=== PATIENT | male | born 1950 | race African-American/Black ===

== ENCOUNTER 2016-12-11 16:54 | Emergency (ER) | payer OTHER ==
[~2016-12-11] VITALS: Ht 175.3 cm; Wt 53.0 kg
[~2016-12-11 16:54] MED LIST: KALETRA200 PO
[2016-12-11 16:56] VITALS: BP 144/87; PULSE 108; RESP 20; TEMP 98; O2SAT 94
--- NOTE | 2016-12-11 18:16 | PD ---
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 He denies any medical complaints. Denies any fever, chills, nausea, vomiting, chest pain, shortness of breath, cough or cold symptoms. States he is otherwise doing well. No other complaints. PFSH Past Medical History Hx Anticoagulant Therapy: No Arthritis: Yes Autoimmune Disease: Yes Blood Disorders: No Heart Rhythm Problems: No Cancer: Yes (SKIN, THROAT) Cardiovascular Problems: No High Cholesterol: Yes Chemotherapy: Yes (JANUARY 2016) Chest Pain: No Congestive Heart Failure: No Cerebrovascular Accident: No Diminished Hearing: No Endocrine: No Genitourinary: No Hiatal Hernia: Yes Hypertension: Yes Immune Disorder: Yes (HIV POSITIVE) Musculoskeletal: No Neurologic: No Psychiatric: No Reproductive: No Respiratory: Yes (Trach) Immunizations Current: Yes Myocardial Infarction: No Radiation Therapy: Yes Past Surgical History Abdominal Surgery: Yes (HERNIA REPAIR, FEED TUBE) AICD: No Joint Replacement: No Pacemaker: No Other Surgery: Yes (TRACHEOSTOMY) Social History Alcohol Use: No Tobacco Use: No Substance Use: No Allergies-Medications (Allergen,Severity, Reaction): Coded Allergies: Morphine (Verified Allergy, Severe, Seizures, 12/11/16) WHEN TAKEN IN COMBINATION WITH OXYCODONE Oxycodone (Verified Allergy, Severe, Seizures, 12/11/16) WHEN TAKEN IN COMBINATION WITH MORPHINE Reported Meds & Prescriptions Reported Meds & Active Scripts Active Reported Kaletra (Lopinavir/Ritonavir) 200-50 Mg Tab 1 Tab PO BID Review of Systems Except as stated in HPI: all other systems reviewed are Neg Physical Exam Narrative GENERAL: Well-nourished and well-developed pleasant male patient in no acute distress who is nontoxic appearing. SKIN: Warm and dry. HEAD: Normocephalic and atraumatic. EYES: No injection, drainage, or hyphema noted. PERRLA. EOMI. ENT: No nasal drainage noted. Oropharynx is clear. NECK: Supple and the trachea is midline. Tracheostomy noted. CARDIOVASCULAR: Regular rate and rhythm. RESPIRATORY: Breath sounds are equal bilaterally with no accessory muscle use, wheezing, rhonchi, or crackles. NEUROLOGICAL: Awake, alert, and oriented. Normal speech and gait. Cranial nerves are grossly intact. Data Data Last Documented VS Vital Signs Date Time Temp Pulse Resp B/P Pulse Ox O2 Delivery O2 Flow Rate FiO2 12/11/16 16:56 98.0 108 20 144/87 94 Room Air Orders Tube, Trach Cuffless Fen:#4 Ea (12/11/16 17:48) MDM Medical Decision Making Medical Screen Exam Complete: Yes Emergency Medical Condition: Yes Differential Diagnosis Tracheostomy care versus medical clearance versus dressing change Narrative Course 66-year-old male presents to the emergency department requesting to have the cap replaced on his tracheostomy. Patient is afebrile, vital signs are stable. He has no medical complaints. The respiratory therapist replaced the piece of his tracheostomy that he needed replaced. He is stable for discharge. Diagnosis Primary Impression: Tracheostomy care Referrals: Primary Care Physician Patient Instructions: General Instructions, Tracheostomy Care (ED) Additional Instructions: Follow-up with your Primary Care Physician. Return to the ED for any acute worsening of symptoms. Disposition: 01 DISCHARGE HOME Condition: Stable Raina Castellano Dec 11, 2016 18:16
== END 2016-12-11 18:31 | disposition home or self-care (01) ==
LOC: NEPB 16:54
DX: Z43.0 Encounter for attention to tracheostomy (principal); I10 Essential (primary) hypertension; E78.00 Pure hypercholesterolemia, unspecified; Z21 Asymptomatic human immunodeficiency virus [HIV] infection status; Z87.39 Personal history of other diseases of the musculoskeletal system and connective tissue; Z86.2 Personal history of diseases of the blood and blood-forming organs and certain disorders involving the immune mechanism; Z85.828 Personal history of other malignant neoplasm of skin; Z85.818 Personal history of malignant neoplasm of other sites of lip, oral cavity, and pharynx; Z87.09 Personal history of other diseases of the respiratory system
CPT/HCPCS: 99282

== ENCOUNTER 2017-01-16 17:54 | Emergency (ER) | payer MEDICARE, MEDICAID ==
[2017-01-16 18:34] VITALS: BP 148/88; PULSE 77; RESP 26; TEMP 98.8; O2SAT 95
[2017-01-16 18:43] VITALS: O2SAT 95
[2017-01-16] MEDS ORDERED: RESP: ALBUTEROL 2.5 MG/IPRATROPIUM 0.5 MG NEB (SCH) INH ONE (18:45)
[2017-01-16] MEDS ORDERED: SODIUM CHLORIDE 0.9% FLUSH 10 ML FLUSH IVF PRN (18:45)
[2017-01-16 18:46] VITALS: BP 148/88; PULSE 90; RESP 26; O2SAT 95
--- NOTE | 2017-01-16 18:51 | PD ---
HPI Chief Complaint: Respiratory Distress Time Seen by Provider: 18:21 Travel History International Travel<30 days: No Contact w/Intl Traveler<30days: No Traveled to known affect area: No History of Present Illness HPI This 66-year-old male with a history of HIV, throat cancer, status post trach and PEG, who presents to the emergency department complaining of cough and trouble breathing. States it caused him for the past 2 days or so. He's been fighting a cold. States she's been short of breath since today. He has a speaking valve on his trach, which is a 4.0 trach. He states been having trouble getting she will come up to the house to the care of him. He is actually considering hospice. Is not really had any fevers or chills. He otherwise has been doing well. Patient was given several treatments and 125 mg Solu-Medrol with EMS. History Past Medical History Narrative Medical Throat cancer Status post trach PEG HIV positive Hypertension Hiatal hernia Social History Alcohol Use: No Tobacco Use: No Allergies-Medications (Allergen,Severity, Reaction): Coded Allergies: Morphine (Verified Allergy, Severe, Seizures, 12/11/16) WHEN TAKEN IN COMBINATION WITH OXYCODONE Oxycodone (Verified Allergy, Severe, Seizures, 12/11/16) WHEN TAKEN IN COMBINATION WITH MORPHINE Reported Meds & Prescriptions Reported Meds & Active Scripts Active Reported Kaletra (Lopinavir/Ritonavir) 200-50 Mg Tab 1 Tab PO BID Review of Systems Except as stated in HPI: all other systems reviewed are Neg Physical Exam Narrative GENERAL: 66-year-old man, thin built, no acute distress. SKIN: Focused skin assessment warm/dry. HEAD: Atraumatic. Normocephalic. EYES: Pupils equal and round. No scleral icterus. No injection or drainage. ENT: No nasal bleeding or discharge. Mucous membranes pink and moist. NECK: 4.0 trach with speaking valve in the midline. There is some crusting drainage around it. CARDIOVASCULAR: Regular rate and rhythm. No murmur appreciated. RESPIRATORY: Coarse inspiratory next door wheezing throughout the posterior lung hatch. Also transmitted upper airway sounds as well. GASTROINTESTINAL: Abdomen soft, non-tender, nondistended. Hepatic and splenic margins not palpable. MUSCULOSKELETAL: No obvious deformities. Decreased muscle bulk. No edema. NEUROLOGICAL: Awake and alert. No obvious cranial nerve deficits. Motor grossly within normal limits. Normal speech. Data Data Last Documented VS Vital Signs Date Time Temp Pulse Resp B/P Pulse Ox O2 Delivery O2 Flow Rate FiO2 01/16/17 18:43 95 Room Air 01/16/17 18:34 98.8 77 26 148/88 Orders Complete Blood Count With Diff (01/16/17 18:41) Comprehensive Metabolic Panel (01/16/17 18:41) B-Type Natriuretic Peptide (01/16/17 18:41) Troponin I (01/16/17 18:41) Iv Access Insert/Monitor (01/16/17 18:41) Electrocardiogram (01/16/17 18:41) Ecg Monitoring (01/16/17 18:41) Oximetry (01/16/17 18:41) Oxygen Administration (01/16/17 18:41) Sodium Chloride 0.9% Flush (Ns Flush) (01/16/17 18:45) Albuterol-Ipratropium Neb (Duoneb Neb) (01/16/17 18:45) [facility] Medical Decision Making Medical Screen Exam Complete: Yes Emergency Medical Condition: Yes Differential Diagnosis Pneumonia, reactive airway disease, tracheal secretions, other Narrative Course Medical decision-making 66 old male with a trach, URI symptoms for the past day or 2, with marked wheezing. No history of lung disease. Suspect bronchitis or pneumonia. We'll have respiratory suction as trach, x-ray, labs, breathing treatment, reassess. Eric Arriola MD Jan 16, 2017 18:51
[2017-01-16 19:53] LABS: AUTOMATED NEUTROPHIL # 3.4 TH/MM3 (1.8-7.7); BASOPHIL % 0.5 % (0.0-2.0); EOSINOPHIL # 0.5 TH/MM3 (0-0.4); HEMATOCRIT 48.1 % (39.0-51.0); LYMPH % 22.8 % (9.0-44.0); LYMPHOCYTE # 1.2 TH/MM3 (1.0-4.8); MEAN CELL VOLUME 80.1 FL (80.0-100.0); MEAN CORPUSCULAR HEMOGLOBIN 25.8 PG (27.0-34.0); MEAN CORPUSCULAR HGB CONC 32.2 % (32.0-36.0); MONO % 5.4 % (0.0-8.0); NEUT % 62.3 % (16.0-70.0); PLATELET COUNT 90 TH/MM3 (150-450); RED BLOOD COUNT 6.01 MIL/MM3 (4.50-5.90); RED CELL DISTRIBUTION WIDTH 14.5 % (11.6-17.2); WHITE BLOOD COUNT 5.4 TH/MM3 (4.0-11.0)
[2017-01-16 20:01] LABS: HEMO FLAGS AUTO DIFF
[2017-01-16 20:03] LABS: ALKALINE PHOSPHATASE 67 U/L (45-117); ALT (GPT) 22 U/L (12-78); ANION GAP 7 MEQ/L (5-15); AST (GOT) 31 U/L (15-37); BICARBONATE 29.9 MEQ/L (21.0-32.0); BLOOD UREA NITROGEN 22 MG/DL (7-18); CHLORIDE 101 MEQ/L (98-107); GLOMERULAR FILTRATION RATE 116 ML/MIN (>89); POTASSIUM 4.8 MEQ/L (3.5-5.1); SODIUM (NA) 138 MEQ/L (136-145); TOTAL BILIRUBIN ADULT 0.3 MG/DL (0.2-1.0)
--- NOTE | 2017-01-16 20:14 | RADRPT ---
EXAM DATE/TIME: 01/16/2017 19:17 [facility] COMPARISON: CHEST SINGLE AP, July 26, 2016, 16:52. INDICATIONS : Shortness of breath. MEDICAL HISTORY : Hypertension. Arthritis. SURGICAL HISTORY : None. ENCOUNTER: Initial ACUITY: 1 day PAIN SCORE: Non-responsive. LOCATION: Bilateral chest FINDINGS: The tracheostomy tube is stable in position compared to the previous examination. The left-sided Inf use-a-port has its tip in the right atrium. There is no pneumothorax. The heart and mediastinal str uctures are stable. The pulmonary vascular pattern is normal. The lungs are clear. Degenerative ch anges are noted throughout the thoracic spine. CONCLUSION: 1. No acute cardiopulmonary disease. 2. Stable chest. Macho Collazo MD on January 16, 2017 at 20:11 Board Certified Radiologist. This report was verified electronically.
[2017-01-16 20:27] LABS: PLATELET ESTIMATE SMEAR LOW (NORMAL); PLATELET MORPHOLOGY ENLARGED (NORMAL)
[2017-01-16 20:28] LABS: SCAN/DIFF AUTO DIFF CONFIRMED
[2017-01-16 21:13] VITALS: BP 152/104; PULSE 102; RESP 18; O2SAT 96
[2017-01-16] MEDS ORDERED: RESP: ALBUTEROL 2.5 MG/3 ML NEB (SCH) NEB ONE (22:00)
[2017-01-16] MEDS ORDERED: LEVOFLOXACIN 750 MG PREMIX INJ 150 ML IV ONE (22:00)
--- NOTE | 2017-01-16 22:22 | EKG ---
Date Performed: 01/16/2017 Time Performed: 19:14:27 PTAGE: 66 years EKG: Sinus rhythm POSSIBLE LEFT ATRIAL ENLARGEMENT BORDERLINE LEFT AXIS DEVIATION ST ELEVATION, PROBABLY EARLY REPOLAR IZATION BORDERLINE ECG PREVIOUS TRACING : 07/26/2016 15.59 Compared to prior tracing no significant change DOCTOR: Ismael Betancourt Interpretating Date/Time 01/16/2017 22:20:01
--- NOTE | 2017-01-16 22:55 | RADRPT ---
EXAM DATE/TIME: 01/16/2017 22:40 [facility] COMPARISON: CHEST SINGLE AP, January 16, 2017, 19:17. INDICATIONS : Post trach replacement. MEDICAL HISTORY : Hypertension. Arthritis. SURGICAL HISTORY : Trach. [id number] ENCOUNTER: Subsequent ACUITY: 1 day PAIN SCORE: Non-responsive. LOCATION: Bilateral chest FINDINGS: The tracheostomy tube is in good position approximately 6 cm above the remington. A left internal jugul ar [id number] has its tip in the right atrium. There is no pneumothorax. The heart is stable. T he pulmonary vascularity is stable. The lungs are clear. Degenerative changes and scoliosis of the thoracic spine are noted. CONCLUSION: 1. No acute cardiopulmonary disease. 2. Tracheostomy tube in good position well above the remington. 3. Degenerative changes and scoliosis of the thoracic spine. Macho Collazo MD on January 16, 2017 at 22:46 Board Certified Radiologist. This report was verified electronically.
[2017-01-17] MEDS ORDERED: LEVA750T PO (00:12)
--- NOTE | 2017-01-17 00:12 | PD ---
Physical Exam Narrative Patient signed out to me by Dr. nunez to follow-up labs and reassess. Please see his documentation for complete history and physical. Briefly, patient is a 66-year-old male with history of HIV, with tracheostomy tube. He comes in complaining of cough and shortness of breath. Patient received DuoNeb nebs and Solu-Medrol. Data Data Last Documented VS Vital Signs Date Time Temp Pulse Resp B/P Pulse Ox O2 Delivery O2 Flow Rate FiO2 01/16/17 21:13 102 18 152/104 96 Trach Collar 01/16/17 18:34 98.8 Orders Complete Blood Count With Diff (01/16/17 18:41) Comprehensive Metabolic Panel (01/16/17 18:41) B-Type Natriuretic Peptide (01/16/17 18:41) Troponin I (01/16/17 18:41) Iv Access Insert/Monitor (01/16/17 18:41) Electrocardiogram (01/16/17 18:41) Ecg Monitoring (01/16/17 18:41) Oximetry (01/16/17 18:41) Oxygen Administration (01/16/17 18:41) Sodium Chloride 0.9% Flush (Ns Flush) (01/16/17 18:45) Albuterol-Ipratropium Neb (Duoneb Neb) (01/16/17 18:45) Chest, Single Ap (01/16/17 ) Albuterol Neb (Albuterol Neb) (01/16/17 22:00) Levofloxacin 750 Mg Premix Inj (Levaquin (01/16/17 22:00) Tube, Tracheal #4 Ea (01/16/17 21:52) Resp Tracheostomy Tube Change (01/16/17 ) Chest, Single Ap (01/16/17 ) Labs Laboratory Tests Test 01/16/17 19:00 White Blood Count 5.4 TH/MM3 Red Blood Count 6.01 MIL/MM3 Hemoglobin 15.5 GM/DL Hematocrit 48.1 % Mean Corpuscular Volume 80.1 FL Mean Corpuscular Hemoglobin 25.8 PG Mean Corpuscular Hemoglobin 32.2 % Concent Red Cell Distribution Width 14.5 % Platelet Count 90 TH/MM3 Mean Platelet Volume 12.1 FL Neutrophils (%) (Auto) 62.3 % Lymphocytes (%) (Auto) 22.8 % Monocytes (%) (Auto) 5.4 % Eosinophils (%) (Auto) 9.0 % Basophils (%) (Auto) 0.5 % Neutrophils # (Auto) 3.4 TH/MM3 Lymphocytes # (Auto) 1.2 TH/MM3 Monocytes # (Auto) 0.3 TH/MM3 Eosinophils # (Auto) 0.5 TH/MM3 Basophils # (Auto) 0.0 TH/MM3 CBC Comment AUTO DIFF Differential Comment AUTO DIFF CONFIRMED Platelet Estimate LOW Platelet Morphology Comment ENLARGED Red Cell Morphology Comment NORMAL Sodium Level 138 MEQ/L Potassium Level 4.8 MEQ/L Chloride Level 101 MEQ/L Carbon Dioxide Level 29.9 MEQ/L Anion Gap 7 MEQ/L Blood Urea Nitrogen 22 MG/DL Creatinine 0.81 MG/DL Estimat Glomerular Filtration 116 ML/MIN Rate Random Glucose 95 MG/DL Calcium Level 9.6 MG/DL Total Bilirubin 0.3 MG/DL Aspartate Amino Transf 31 U/L (AST/SGOT) Alanine Aminotransferase 22 U/L (ALT/SGPT) Alkaline Phosphatase 67 U/L Troponin I 0.02 NG/ML B-Type Natriuretic Peptide 4 PG/ML Total Protein 8.4 GM/DL Albumin 3.7 GM/DL MDM Supervised Visit with [place]: No Narrative Course Chest x-ray shows no evidence of pneumonia. Tracheostomy tube was replaced as the mucus was too thick to suction through. Patient reports feeling much better after this. Given a dose of Levaquin. We'll discharge with prescription for Levaquin. Patient advised to use albuterol as needed at home. Advised to return to the ED as needed for any worsening symptoms. Diagnosis Primary Impression: Bronchitis Additional Impression: Tracheostomy care Patient Instructions: Acute Bronchitis (ED), General Instructions Additional Instruction: Follow up with your doctor. Return to the ED as needed for any worsening symptoms. Take all of your antibiotics. Scripts Levofloxacin (Levaquin)750 Mg [id number] Mg PO DAILY 7 Days Ref 0 Prov:Anay Darden MD 01/17/17 Disposition: 01 DISCHARGE HOME Condition: Stable Anay Darden MD Jan 17, 2017 00:12
== END 2017-01-17 00:58 | disposition home or self-care (01) ==
LOC: NEDAMB 17:54 → NEPC 01-17 00:58
DX: C14.0 Malignant neoplasm of pharynx, unspecified (principal); B20 Human immunodeficiency virus [HIV] disease; J20.9 Acute bronchitis, unspecified; Z93.0 Tracheostomy status
CPT/HCPCS: 71010; 80053; 83880; 84484; 85025; 93005; 94640; 94664; 96374; 99284; A7521; J1956; J7613

== ENCOUNTER 2017-02-22 11:48 | Emergency (ER) | payer MEDICAID, MEDICARE, OTHER ==
[~2017-02-22] VITALS: Ht 175.3 cm; Wt 52.3 kg
[~2017-02-22 11:48] MED LIST changes: -KALETRA200 PO; +LEVA750T PO
[2017-02-22 11:51] VITALS: BP 141/96; PULSE 98; RESP 16; TEMP 98; O2SAT 96
--- NOTE | 2017-02-22 13:09 | PD ---
HPI Chief Complaint: Respiratory Symptoms Time Seen by Provider: 12:08 Travel History International Travel<30 days: No Contact w/Intl Traveler<30days: No Traveled to known affect area: No History of Present Illness HPI 66-year-old gentleman states that he takes his cap at night off and now he is having issues getting it in. He states he also wants his tracheostomy collar switched. He states he wants to be suctioned. He denies other complaints. History is obtained by patient writing a note that is limited PFSH Past Medical History Narrative Medical By records Hx Anticoagulant Therapy: No Arthritis: Yes Autoimmune Disease: Yes Blood Disorders: No Heart Rhythm Problems: No Cancer: Yes Cardiovascular Problems: No High Cholesterol: Yes Chemotherapy: Yes (JANUARY 2016) Chest Pain: No Congestive Heart Failure: No Cerebrovascular Accident: No Diminished Hearing: No Endocrine: No Genitourinary: No Hiatal Hernia: Yes Hypertension: Yes Immune Disorder: Yes (HIV/AIDS) Musculoskeletal: No Neurologic: No Psychiatric: No Reproductive: No Respiratory: Yes (Tghroat CA with trach > 1 yr) Immunizations Current: Yes Myocardial Infarction: No Radiation Therapy: Yes Tetanus Vaccination: > 5 Years Influenza Vaccination: No Past Surgical History Narrative Surgical By records Abdominal Surgery: Yes AICD: No Joint Replacement: No Pacemaker: No Other Surgery: Yes (Trach placed ) Social History Alcohol Use: No Tobacco Use: No Substance Use: No Allergies-Medications (Allergen,Severity, Reaction): Coded Allergies: Morphine (Verified Allergy, Severe, Seizures, 02/22/17) WHEN TAKEN IN COMBINATION WITH OXYCODONE Oxycodone (Verified Allergy, Severe, Seizures, 02/22/17) WHEN TAKEN IN COMBINATION WITH MORPHINE Reported Meds & Prescriptions Reported Meds & Active Scripts Active Levaquin (Levofloxacin) 750 Mg Tab 750 Mg PO DAILY 7 Days Review of Systems ROS Limitations: Poor Historian Physical Exam Exam Limitations: Uncooperative Narrative GENERAL: Well-nourished, well-developed patient. SKIN: Warm and dry. HEAD: atraumatic. EYES: No injection or drainage. ENT: Tracheostomy site with inner cannula off, this was replaced by respiratory therapist and he was suctioned, collar was also changed NECK: Supple, trachea midline. CARDIOVASCULAR: Regular rate and rhythm RESPIRATORY: No increased effort. No accessory muscle use. NEUROLOGICAL: Awake and alert. Moves all extremities. Normal speech. Data Data Last Documented VS Vital Signs Date Time Temp Pulse Resp B/P Pulse Ox O2 Delivery O2 Flow Rate FiO2 02/22/17 11:55 16 97 Room Air 02/22/17 11:51 98.0 98 141/96 Orders ^ Suction (02/22/17 12:26) [facility] Medical Decision Making Medical Screen Exam Complete: Yes Emergency Medical Condition: Yes Medical Record Reviewed: Yes (patient here for similar visits) Differential Diagnosis Tracheostomy care, suctioning, URI Narrative Course Patient with stable vitals, RT assisted with tracheostomy care, talked with case management to help get home health and patient refused this. Given return instructions, all questions answered. Patient knows that follow up is incumbent on them and to return to the emergency room immediately if new or worsening symptoms develop. Diagnosis Primary Impression: Tracheostomy care Patient Instructions: General Instructions Additional Instructions: Follow with primary to set up home health, return as needed with any emergent need Med/Other Pt SpecificInfo: No Change to Meds Disposition: 01 DISCHARGE HOME Condition: Stable Kassy Rojo MD February 22, 2017 13:09
== END 2017-02-22 14:03 | disposition home or self-care (01) ==
LOC: NEPC 11:48
DX: Z43.0 Encounter for attention to tracheostomy (principal); E78.00 Pure hypercholesterolemia, unspecified; I10 Essential (primary) hypertension
CPT/HCPCS: 99283

== ENCOUNTER 2017-03-26 11:25 | Emergency (ER) | payer OTHER ==
[2017-03-26 11:40] VITALS: BP 112/84; PULSE 83; RESP 16; TEMP 98.5; O2SAT 96
--- NOTE | 2017-03-26 11:42 | PD ---
HPI Chief Complaint: CARE FOR TRACH Time Seen by Provider: 11:38 Travel History International Travel<30 days: No Contact w/Intl Traveler<30days: No History of Present Illness HPI WHILE AT HOME PATIENT COUGHED STRONGLY AND HIS INNER CANULA FROM TRACH CAME OUT , HE'S HERE FOR REPLACEMENT PFSH Past Medical History Hx Anticoagulant Therapy: No Arthritis: Yes Autoimmune Disease: Yes Blood Disorders: No Heart Rhythm Problems: No Cancer: Yes Cardiovascular Problems: No High Cholesterol: Yes Chemotherapy: Yes (JANUARY 2016) Chest Pain: No Congestive Heart Failure: No Cerebrovascular Accident: No Diminished Hearing: No Endocrine: No Genitourinary: No Hiatal Hernia: Yes Hypertension: Yes Immune Disorder: Yes (HIV/AIDS) Musculoskeletal: No Neurologic: No Psychiatric: No Reproductive: No Respiratory: Yes (Tghroat CA with trach > 1 yr) Immunizations Current: Yes Myocardial Infarction: No Radiation Therapy: Yes Past Surgical History Abdominal Surgery: Yes AICD: No Joint Replacement: No Pacemaker: No Other Surgery: Yes (Trach placed ) Social History Alcohol Use: No Tobacco Use: No Substance Use: No Allergies-Medications (Allergen,Severity, Reaction): Coded Allergies: Morphine (Verified Allergy, Severe, Seizures, 03/26/17) WHEN TAKEN IN COMBINATION WITH OXYCODONE Oxycodone (Verified Allergy, Severe, Seizures, 03/26/17) WHEN TAKEN IN COMBINATION WITH MORPHINE Reported Meds & Prescriptions Reported Meds & Active Scripts Active Review of Systems Except as stated in HPI: all other systems reviewed are Neg Physical Exam Narrative GENERAL: SKIN: Warm and dry. HEAD: Atraumatic. Normocephalic. EYES: Pupils equal and round. No scleral icterus. No injection or drainage. ENT: No nasal bleeding or discharge. Mucous membranes pink and moist. NECK: Trachea midline. No JVD. TRACH COLLAR IN PLACE, MISSING INNER CANNULA WHICH HE BROUGHT WITH HIMSELF. NO RESP DISTRESS CARDIOVASCULAR: Regular rate and rhythm. RESPIRATORY: No accessory muscle use. Clear to auscultation. Breath sounds equal bilaterally. GASTROINTESTINAL: Abdomen soft, non-tender, nondistended. Hepatic and splenic margins not palpable. MUSCULOSKELETAL: Extremities without clubbing, cyanosis, or edema. No obvious deformities. NEUROLOGICAL: Awake and alert. No obvious cranial nerve deficits. Motor grossly within normal limits. Five out of 5 muscle strength in the arms and legs. Normal speech. PSYCHIATRIC: Appropriate mood and affect; insight and judgment normal. Data Data Last Documented VS Vital Signs Date Time Temp Pulse Resp B/P Pulse Ox O2 Delivery O2 Flow Rate FiO2 03/26/17 11:40 98.5 83 16 112/84 96 MDM Medical Decision Making Medical Screen Exam Complete: Yes Emergency Medical Condition: Yes Medical Record Reviewed: Yes Differential Diagnosis NO RESP DISTRESS PRESENT, NO STRIDOR, WILL REPLACE INNER CANNULA Narrative Course SEE ABOVE Diagnosis Primary Impression: Tracheostomy care Patient Instructions: General Instructions, Tracheostomy Care (ED) Disposition: 01 DISCHARGE HOME Condition: Stable Monty Pathak MD Mar 26, 2017 11:42
[2017-03-26 13:54] VITALS: BP 110/80
== END 2017-03-26 14:00 | disposition home or self-care (01) ==
LOC: NEPC 11:25
DX: Z43.0 Encounter for attention to tracheostomy (principal); I10 Essential (primary) hypertension
CPT/HCPCS: 99284

== ENCOUNTER 2017-05-01 10:57 | Emergency (ER) | payer OTHER ==
[~2017-05-01] VITALS: Ht 175.3 cm; Wt 53.0 kg
[2017-05-01 11:04] VITALS: BP 142/89; PULSE 86; RESP 18; TEMP 98.6; O2SAT 99
[2017-05-01 11:20] VITALS: BP 142/89; PULSE 86; RESP 18; TEMP 98.6; O2SAT 98
--- NOTE | 2017-05-01 12:22 | PD ---
HPI Chief Complaint: Respiratory Symptoms Time Seen by Provider: 11:14 Travel History International Travel<30 days: No Contact w/Intl Traveler<30days: No Traveled to known affect area: No History of Present Illness HPI This patient has long-standing indwelling trach. The patient coughed and his cannula came out. He presents to get it replaced. He had the same thing happened last month. He is breathing fine and denies any shortness of breath or fever or chest pain. Severity is mild PFSH Past Medical History Hx Anticoagulant Therapy: No Arthritis: Yes Autoimmune Disease: Yes Blood Disorders: No Heart Rhythm Problems: No Cancer: Yes Cardiovascular Problems: No High Cholesterol: Yes Chemotherapy: Yes Chest Pain: No Congestive Heart Failure: No Cerebrovascular Accident: No Diminished Hearing: No Endocrine: No Gastrointestinal Disorders: No Genitourinary: No Hiatal Hernia: Yes Hypertension: Yes Immune Disorder: Yes (HIV/AIDS) Musculoskeletal: No Neurologic: No Psychiatric: No Reproductive: No Respiratory: Yes (Throat CA with trach > 1 yr) Immunizations Current: Yes Myocardial Infarction: No Radiation Therapy: Yes Tetanus Vaccination: > 5 Years Influenza Vaccination: Yes ?: Not Past Surgical History Abdominal Surgery: Yes AICD: No Joint Replacement: No Neurologic Surgery: No Pacemaker: No Other Surgery: Yes (Trach placed ) Social History Alcohol Use: No Tobacco Use: No Substance Use: No Allergies-Medications (Allergen,Severity, Reaction): Coded Allergies: Morphine (Verified Allergy, Severe, Seizures, 03/26/17) WHEN TAKEN IN COMBINATION WITH OXYCODONE Oxycodone (Verified Allergy, Severe, Seizures, 03/26/17) WHEN TAKEN IN COMBINATION WITH MORPHINE Reported Meds & Prescriptions Reported Meds & Active Scripts Active Review of Systems General / Constitutional: No: Fever HENT: No: Headaches Cardiovascular: No: Chest Pain or Discomfort Respiratory: Positive: Cough Physical Exam Narrative RESPIRATORY: Respiratory effort unlabored, no retractions or use of accessory muscles. Breath sounds are clear and symmetric. NECK: Symmetrical appearance, midline trachea. No mass or crepitus. Thyroid without enlargement, tenderness, or mass. CARDIOVASCULAR: Regular rate and rhythm without murmur. Extremities showed no edema or varicosities. Data Data Last Documented VS Vital Signs Date Time Temp Pulse Resp B/P Pulse Ox O2 Delivery O2 Flow Rate FiO2 05/01/17 11:20 98.6 86 18 142/89 98 Trach Collar MDM Medical Decision Making Medical Screen Exam Complete: Yes Emergency Medical Condition: Yes Medical Record Reviewed: Yes Differential Diagnosis Dislodged tracheostomy, bronchitis, COPD Narrative Course I have reviewed the patient's electronic medical record. Patient was here March 2017 for the exact same problem We cleaned and replaced his tracheostomy without complication Patient feels fine and demands to instantly go home He does not want anything else done I did advise him he should discuss with his physician why his tracheostomy keeps popping out when he coughs. Diagnosis Primary Impression: Tracheostomy care Additional Instructions: The patient was advised to follow up with their physician and return if they worsen. Med/Other Pt SpecificInfo: Other Disposition: 01 DISCHARGE HOME Condition: Stable Simon Colón MD May 01, 2017 12:22
== END 2017-05-01 14:05 | disposition home or self-care (01) ==
LOC: NEPE 10:57
DX: Z43.0 Encounter for attention to tracheostomy (principal)
CPT/HCPCS: 99283

== ENCOUNTER 2017-09-04 20:53 | Emergency (ER) | payer OTHER ==
[2017-09-04 20:56] VITALS: BP 157/87; PULSE 102; RESP 18; TEMP 98.2; O2SAT 94
--- NOTE | 2017-09-04 22:42 | PD ---
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 Patient is unable to speak audibly without his. He is wondering if we will be able to replace this. Patient has no other symptoms to report at this time. History Past Medical Histgory Hx Cancer: Yes Hx Chemotherapy: Yes Hx Radiation Therapy: Yes Social History Alcohol Use: No Tobacco Use: No Allergies-Medications (Allergen,Severity, Reaction): Coded Allergies: morphine (Unverified Allergy, Severe, Seizures, 06/05/17) WHEN TAKEN IN COMBINATION WITH OXYCODONE oxycodone (Unverified Allergy, Severe, Seizures, 06/05/17) WHEN TAKEN IN COMBINATION WITH MORPHINE Reported Meds & Prescriptions Reported Meds & Active Scripts Active Review of Systems Except as stated in HPI: all other systems reviewed are Neg Physical Exam Narrative GENERAL: Well-nourished male patient, appears without distress SKIN: Warm and dry. HEAD: Atraumatic. Normocephalic. EYES: Pupils equal and round. No scleral icterus. No injection or drainage. ENT: No nasal bleeding or discharge. Mucous membranes pink and moist. NECK: Trachea midline. #[address] No erythema or edema. CARDIOVASCULAR: Elevated rate RESPIRATORY: No accessory muscle use. GASTROINTESTINAL: Abdomen nondistended. MUSCULOSKELETAL: Extremities without clubbing, cyanosis, or edema. No obvious deformities. NEUROLOGICAL: Awake and alert. No obvious cranial nerve deficits. Normal speech. Data Data Last Documented VS Vital Signs Date Time Temp Pulse Resp B/P (MAP) Pulse Ox O2 Delivery O2 Flow Rate FiO2 09/04/17 20:56 98.2 102 18 157/87 (110) 94 Room Air MDM Medical Screen Exam Complete: Yes Emergency Medical Condition: No Differential Diagnosis quality facilitator malfunction Narrative Course 66 year-old male presents emergency department requesting a For his trach. Patient states that he lost a today and cannot find it. He has a #4 trach and I am unable to locate a #4 Here in the hospital. I have gone to the supply department and they have #6 in #8. We have attempted a #6, but this does not fit. Patient states that he can contact his primary care provider tomorrow. At this time there are no urgent or emergent needs medical intervention identified. A medical screening exam was performed: At the time of evaluation the presenting medical condition was determined not to be of an emergent nature. The patient was given the option of receiving additional care, but declined. Patient was given options for additional community resources from which to obtain care. The Patient Has Been advised to seek medical attention for their presenting complaint. The patient has been advised to return to the ER at any time if an emergent condition develops. Primary Impression: Encounter for medical screening examination Condition: Stable Kat Harry Sep 04, 2017 22:42
== END 2017-09-04 22:30 | disposition left against medical advice (07) ==
LOC: NED 22:25
DX: Z00.00 Encounter for general adult medical examination without abnormal findings (principal); Z93.0 Tracheostomy status; Z85.21 Personal history of malignant neoplasm of larynx; Z92.3 Personal history of irradiation; Z92.21 Personal history of antineoplastic chemotherapy
CPT/HCPCS: 99281

== ENCOUNTER 2017-09-17 17:50 | Inpatient (IN) | payer OTHER, MEDICARE ==
[~2017-09-17] VITALS: Ht 175.3 cm; Wt 57.4 kg
[2017-09-17 17:53] VITALS: BP 140/80; PULSE 129; RESP 18; TEMP 100.2; O2SAT 90
--- NOTE | 2017-09-17 18:29 | RADRPT ---
EXAM DATE/TIME: 09/17/2017 18:12 [facility] COMPARISON: CHEST SINGLE AP, January 16, 2017, 22:40. INDICATIONS : Fever MEDICAL HISTORY : Hypertension. Arthritis SURGICAL HISTORY : Trach. [id number] ENCOUNTER: Initial ACUITY: 1 day PAIN SCORE: 0/10 LOCATION: Bilateral chest FINDINGS: A single view of the chest demonstrates the lungs to be hyperinflated but clear of acute infiltrate. There is some blunting of the right costophrenic angle which may represent a small effusion. Tracheos patricio tube remains appropriately positioned above the remington. Left IJ Xdiuye-g-Vuhu catheter with the tip projecting over the central venous system. Surgical clips of the right neck base. Degenerative sp urring of the dorsal spine with a dextroscoliosis. Heart size is normal. CONCLUSION: No acute infiltrate. Yohannes Gaona MD on September 17, 2017 at 18:24 Board Certified Radiologist. This report was verified electronically.
[2017-09-17 18:43] VITALS: TEMP 103
[2017-09-17] MEDS ORDERED: IBUPROFEN 800 MG TAB PO ONE (18:45)
[2017-09-17] MEDS ORDERED: SODIUM CHLOR 0.9% 1000 ML INJ 800 ML IV ONE (18:46)
[2017-09-17] MEDS ORDERED: SODIUM CHLOR 0.9% 1000 ML INJ 1,000 ML IV ONE (18:46)
[2017-09-17 18:57] LABS: AUTOMATED NEUTROPHIL # 8.2 TH/MM3 (1.8-7.7); BASOPHIL # 0.1 TH/MM3 (0-0.2); BASOPHIL % 0.6 % (0.0-2.0); EOSINOPHIL # 0.1 TH/MM3 (0-0.4); EOSINOPHIL % 1.1 % (0.0-4.0); HEMATOCRIT 35.3 % (39.0-51.0); HEMO FLAGS DIFF FINAL; LYMPH % 9.1 % (9.0-44.0); LYMPHOCYTE # 0.9 TH/MM3 (1.0-4.8); MEAN CELL VOLUME 82.5 FL (80.0-100.0); MEAN CORPUSCULAR HEMOGLOBIN 26.6 PG (27.0-34.0); MEAN CORPUSCULAR HGB CONC 32.3 % (32.0-36.0); MONO % 7.3 % (0.0-8.0); NEUT % 81.9 % (16.0-70.0); PLATELET COUNT 102 TH/MM3 (150-450); RED BLOOD COUNT 4.27 MIL/MM3 (4.50-5.90); RED CELL DISTRIBUTION WIDTH 13.5 % (11.6-17.2)
[2017-09-17 19:13] LABS: APTT (PATIENT) 26.9 SEC (24.3-30.1); INTERNATIONAL NORMALIZED RATIO 1.1 RATIO; PROTHROMBIN TIME - PATIENT 12.5 SEC (9.8-11.6)
--- NOTE | 2017-09-17 19:17 | PD ---
HPI Chief Complaint: Cold / Flu Symptoms Time Seen by Provider: 18:05 Travel History International Travel<30 days: No Contact w/Intl Traveler<30days: No History of Present Illness HPI Patient is a 66-year-old male presenting to emergency department for evaluation of cough, shortness of breath and fevers. Patient states it started yesterday, he also reports frequency with urination. He denies abdominal, back pain, chest pain. He states the cough is productive but he swallows it. Patient further denies any nausea, vomiting, decreased intake orally. He has a history of throat cancer and has a tracheostomy. He has had chemotherapy and radiation in the past but none in 1 year. He has no known allergies in his primary doctor is Dr. Padgett. [facility] Past Medical History Hx Anticoagulant Therapy: No Arthritis: Yes Blood Disorders: No Heart Rhythm Problems: No Cancer: Yes (THROAT) Cardiovascular Problems: No High Cholesterol: Yes Chemotherapy: Yes Chest Pain: No Congestive Heart Failure: No Cerebrovascular Accident: No Diminished Hearing: No Endocrine: No Gastrointestinal Disorders: No Genitourinary: No Hiatal Hernia: Yes Hypertension: Yes Immune Disorder: Yes (HIV/AIDS) Musculoskeletal: No Neurologic: No Psychiatric: No Reproductive: No Immunizations Current: Yes Myocardial Infarction: No Radiation Therapy: Yes Past Surgical History Abdominal Surgery: Yes (G-TUBE) AICD: No Joint Replacement: No Neurologic Surgery: No Pacemaker: No Other Surgery: Yes (Trach placed ) Social History Alcohol Use: No Tobacco Use: No Substance Use: No Allergies-Medications (Allergen,Severity, Reaction): Coded Allergies: morphine (Unverified Allergy, Severe, Seizures, 06/05/17) WHEN TAKEN IN COMBINATION WITH OXYCODONE oxycodone (Unverified Allergy, Severe, Seizures, 06/05/17) WHEN TAKEN IN COMBINATION WITH MORPHINE Reported Meds & Prescriptions Reported Meds & Active Scripts Active Active Prescriptions or Reported Medications Unobtainable Review of Systems Except as stated in HPI: all other systems reviewed are Neg General / Constitutional: Positive: Fever, Chills HENT: No: Headaches Cardiovascular: Positive: Dyspnea on exertion, No: Chest Pain or Discomfort Respiratory: Positive: Cough, Shortness of Breath, No: Wheezing Gastrointestinal: No: Nausea, Vomiting, Abdominal Pain Genitourinary: Positive: Frequency Musculoskeletal: No: Myalgias Neurologic: No: Weakness, Dizziness, Syncope Physical Exam Narrative GENERAL: Thin, well-developed, alert male. Resting in no acute distress. SKIN: Warm and dry. HEAD: Atraumatic. Normocephalic. EYES: Pupils equal and round. No scleral icterus. No injection or drainage. ENT: No nasal bleeding or discharge. Mucous membranes pink and moist. NECK: Trachea midline. No JVD. Tracheostomy CARDIOVASCULAR: Tachycardic RESPIRATORY: No accessory muscle use. Clear to auscultation. Breath sounds diminished in bases bilaterally GASTROINTESTINAL: Abdomen soft, non-tender, nondistended. Hepatic and splenic margins not palpable. MUSCULOSKELETAL: Extremities without clubbing, cyanosis, or edema. No obvious deformities. NEUROLOGICAL: Awake and alert. No obvious cranial nerve deficits. Motor grossly within normal limits. Five out of 5 muscle strength in the arms and legs. Normal speech. PSYCHIATRIC: Appropriate mood and affect; insight and judgment normal. Data Data Last Documented VS Vital Signs Date Time Temp Pulse Resp B/P (MAP) Pulse Ox O2 Delivery O2 Flow Rate FiO2 09/17/17 20:12 95 Nasal Cannula 2.00 09/17/17 20:11 100.7 105 18 139/73 (95) Orders Orders Sepsis Workup Initiated (09/17/17 ) Electrocardiogram (09/17/17 18:05) Complete Blood Count With Diff (09/17/17 18:05) Comprehensive Metabolic Panel (09/17/17 18:05) Prothrombin Time / Inr (Pt) (09/17/17 18:05) Act Partial Throm Time (Ptt) (09/17/17 18:05) Lactic Acid Sepsis Protocol (09/17/17 18:05) Magnesium (Mg) (09/17/17 18:05) Urinalysis - C+S If Indicated (09/17/17 18:05) Influenzae A/B Antigen (09/17/17 18:05) Blood Culture (09/17/17 18:05) Chest, Single Ap (09/17/17 18:05) Blood Glucose (09/17/17 18:05) Ecg Monitoring (09/17/17 18:05) Iv Access Insert/Monitor (09/17/17 18:05) Oximetry (09/17/17 18:05) Oxygen Administration (09/17/17 18:05) Sputum Culture And Gram Stain (09/17/17 18:36) Ibuprofen (Motrin) (09/17/17 18:45) Sodium Chlor 0.9% 1000 Ml Inj (Ns 1000 M (09/17/17 18:46) Sodium Chlor 0.9% 1000 Ml Inj (Ns 1000 M (09/17/17 18:46) Magnesium Sulfate 1 Gm Premix (Magnesium (09/17/17 19:45) Ct Pulmonary Angiogram (09/17/17 ) Piperacil-Tazo 4.5 Gm Premix (Zosyn 4.5 (09/17/17 20:07) Azithromycin Inj (Zithromax Inj) (09/17/17 20:07) Acetaminophen (Tylenol) (09/17/17 20:30) Iohexol 350 Inj (Omnipaque 350 Inj) (09/17/17 20:49) Admit Order (Ed Use Only) (09/17/17 22:34) Labs Laboratory Tests Test 09/17/17 18:32 09/17/17 19:04 White Blood Count 10.0 TH/MM3 Red Blood Count 4.27 MIL/MM3 Hemoglobin 11.4 GM/DL Hematocrit 35.3 % Mean Corpuscular Volume 82.5 FL Mean Corpuscular Hemoglobin 26.6 PG Mean Corpuscular Hemoglobin Concent 32.3 % Red Cell Distribution Width 13.5 % Platelet Count 102 TH/MM3 Mean Platelet Volume 9.9 FL Neutrophils (%) (Auto) 81.9 % Lymphocytes (%) (Auto) 9.1 % Monocytes (%) (Auto) 7.3 % Eosinophils (%) (Auto) 1.1 % Basophils (%) (Auto) 0.6 % Neutrophils # (Auto) 8.2 TH/MM3 Lymphocytes # (Auto) 0.9 TH/MM3 Monocytes # (Auto) 0.7 TH/MM3 Eosinophils # (Auto) 0.1 TH/MM3 Basophils # (Auto) 0.1 TH/MM3 CBC Comment DIFF FINAL Differential Comment Prothrombin Time 12.5 SEC Prothromb Time International Ratio 1.1 RATIO Activated Partial Thromboplast Time 26.9 SEC Blood Urea Nitrogen 20 MG/DL Creatinine 0.96 MG/DL Random Glucose 153 MG/DL Total Protein 8.4 GM/DL Albumin 3.6 GM/DL Calcium Level 8.7 MG/DL Magnesium Level 1.4 MG/DL Alkaline Phosphatase 66 U/L Aspartate Amino Transf (AST/SGOT) 18 U/L Alanine Aminotransferase (ALT/SGPT) 16 U/L Total Bilirubin 0.6 MG/DL Sodium Level 132 MEQ/L Potassium Level 4.1 MEQ/L Chloride Level 100 MEQ/L Carbon Dioxide Level 27.2 MEQ/L Anion Gap 5 MEQ/L Estimat Glomerular Filtration Rate 96 ML/MIN Lactic Acid Level 1.6 mmol/L Urine Color YELLOW Urine Turbidity CLEAR Urine pH 8.0 Urine Specific Lee 1.014 Urine Protein TRACE mg/dL Urine Glucose (UA) NEG mg/dL Urine Ketones NEG mg/dL Urine Occult Blood NEG Urine Nitrite NEG Urine Bilirubin NEG Urine Urobilinogen LESS THAN 2.0 MG/DL Urine Leukocyte Esterase NEG Urine RBC 1 /hpf Urine WBC LESS THAN 1 /hpf Urine Squamous Epithelial Cells <1 /hpf Microscopic Urinalysis Comment CATH-CULT NOT IND MDM Medical Decision Making Medical Screen Exam Complete: Yes Emergency Medical Condition: Yes Medical Record Reviewed: Yes Interpretation(s) Vital Signs Date Time Temp Pulse Resp B/P (MAP) Pulse Ox O2 Delivery O2 Flow Rate FiO2 09/17/17 17:53 100.2 129 18 140/80 (100) 90 Differential Diagnosis Pneumonia versus metabolic abnormality versus sepsis versus UTI versus other Narrative Course Patient presented for evaluation of cough, shortness of breath, fevers. Patient was febrile in triage, his temp was reassessed when he was brought to the room at 103. Motrin ordered. Labs and imaging ordered and pending. Sepsis workup initiated CBC with a white count of 10, neutrophils 81.9 Chemistry with sodium of 132, BUN 20, magnesium 1.4, 1 g magnesium IV replacement ordered Lactic acid 1.6 Urinalysis is unremarkable Chest x-ray which is read by the radiologist shows hyperinflation but clear of acute infiltrate. There is some blunting of the right costophrenic angle which may represent a small effusion. Tracheostomy tube remains appropriately positioned above the remington. Left IJ [id number] catheter with tip projecting over the central venous system. Dextroscoliosis, heart size is normal. A CT pulmonary angiogram was performed, this was read by the radiologist as well. Scattered patchy airspace disease in the left perihilar distribution and in both lung bases, right greater than left. Findings are concerning for bilateral pneumonic infiltrates. Prominent in the right base. There is no PE. Zosyn and azithromycin ordered empirically. Sputum culture is pending. Vital signs are reassessed, temp is 100.7 with a heart rate of 105. Patient was given acetaminophen. Hepas paged for admission. Discussed findings with Dr. Matamoros who accepted admission. Admit orders placed. Sepsis Criteria SIRS Criteria (2 or more): Temp > 100.9 or < 96.8, Heart rate over 90 Sepsis Criteria (SIRS+source): Infect source susp/known Diagnosis Primary Impression: Sepsis Qualified Codes: A41.9 - Sepsis, unspecified organism Additional Impression: PNA (pneumonia) Qualified Codes: J18.9 - Pneumonia, unspecified organism Admitting Information Admitting Physician Requests: Admit Scripts Unable to Obtain Active Prescriptions or Reported Meds Condition: Stable Sweetie Pop Sep 17, 2017 19:17
[2017-09-17 19:24] LABS: ANION GAP 5 MEQ/L (5-15); AST (GOT) 18 U/L (15-37); BICARBONATE 27.2 MEQ/L (21.0-32.0); BLOOD UREA NITROGEN 20 MG/DL (7-18); CHLORIDE 100 MEQ/L (98-107); GLOMERULAR FILTRATION RATE 96 ML/MIN (>89); MAGNESIUM 1.4 MG/DL (1.5-2.5); POTASSIUM 4.1 MEQ/L (3.5-5.1); SODIUM (NA) 132 MEQ/L (136-145)
[2017-09-17 19:25] LABS: ALT (GPT) 16 U/L (12-78)
[2017-09-17 19:28] LABS: ALKALINE PHOSPHATASE 66 U/L (45-117); TOTAL BILIRUBIN ADULT 0.6 MG/DL (0.2-1.0)
[2017-09-17 19:30] LABS: BLOOD, URINE NEG (NEG); GLUCOSE,URINE NEG (NEG); KETONE, URINE NEG (NEG); NITRITE,URINE NEG (NEG); SQUAMOUS EPITHELIAL CELL URINE <1 /hpf (0-5); URINE COLOR YELLOW (YELLW/STRAW)
[2017-09-17 19:31] LABS: COMMENT (UR) CATH-CULT NOT IND; CULTURE IF INDICATED CATH CULTURE NOT IND
[2017-09-17] MEDS ORDERED: MAGNESIUM SULFATE 1 GM PREMIX 100 ML IV ONE (19:45)
[2017-09-17] MEDS ORDERED: AZITHROMYCIN INJ 500 MG in SODIUM CHLOR 0.9% 250 ML INJ 250 ML IV STA (20:07)
[2017-09-17] MEDS ORDERED: PIPERACIL-TAZO 4.5 GM PREMIX 100 ML IV STA (20:07)
[2017-09-17 20:11] VITALS: BP 139/73; PULSE 105; RESP 18; TEMP 100.7; O2SAT 92
[2017-09-17] MEDS ORDERED: ACETAMINOPHEN 325 MG TAB PO ONE (20:30)
[2017-09-17] MEDS ORDERED: IOHEXOL 350 MG/ML 10 ML VIAL (for RAD DIAG) IVCONTRAST ONE (20:49)
--- NOTE | 2017-09-17 22:12 | RADRPT ---
EXAM DATE/TIME: 09/17/2017 20:37 [facility] COMPARISON: CHEST SINGLE AP, September 17, 2017, 18:12. INDICATIONS : Cough, short of breath, fever. IV CONTRAST: 55 cc Omnipaque 350 (iohexol) IV RADIATION DOSE: 5.76 CTDIvol (mGy) MEDICAL HISTORY : HIV. Hypertension. Carcinoma, not otherwise specified. SURGICAL HISTORY : None. ENCOUNTER: Initial ACUITY: 2 days PAIN SCALE: 4/10 LOCATION: chest TECHNIQUE: Volumetric scanning of the chest was performed using a pulmonary embolism protocol MIP images were re constructed. Using automated exposure control and adjustment of the mA and/or kV according to patien t size, radiation dose was kept as low as reasonably achievable to obtain optimal diagnostic quality images. DICOM format image data is available electronically for review and comparison. Follow-up recommendations for detected pulmonary nodules are based at a minimum on nodule size and pa tient risk factors according to Fleischner Society Guidelines. FINDINGS: PULMONARY ARTERIES: No filling defects are seen in the pulmonary arteries through the segmental level. LUNGS: Patchy bilateral air space disease in the left perihilar distribution and, most significantly in the right base extending into the costophrenic angle. Findings are concerning for early bilateral pneumon ic infiltrates. PLEURAE: There is no pleural thickening or pleural effusion. MEDIASTINUM: There is good visualization of the great vessels of the middle mediastinum. No evidence of mediastin al or hilar adenopathy/mass. MUSCULOSKELETAL: Within normal limits for patient age. MISCELLANEOUS: The visualized upper abdominal organs demonstrate no acute abnormality. Tracheostomy tube is appropri ately positioned above the remington CONCLUSION: 1. Scattered patchy airspace disease in the left perihilar distribution and in both lung bases, right greater than left. Findings are concerning for bilateral pneumonic infiltrates, most prominent in th e right base. 2. No pulmonary embolus Yohannes Gaona MD on September 17, 2017 at 22:05 Board Certified Radiologist. This report was verified electronically.
[2017-09-17] MEDS ORDERED: SODIUM CHLORIDE 0.9% FLUSH 10 ML FLUSH IV FLUSH PRN (23:15)
[2017-09-17] MEDS ORDERED: RESP: ALBUTEROL 2.5 MG/IPRATROPIUM 0.5 MG NEB (PRN) INH (23:15)
[2017-09-17] MEDS: ENOXAPARIN SODIUM 40 MG/0.4 ML SYRINGE SQ SCH (23:15)
[2017-09-17 23:53] VITALS: O2SAT 97
[2017-09-18] VITALS (11 sets, daily range): BP systolic 119–139; BP diastolic 67–89; PULSE 75–93; RESP 14–20; TEMP 97.9–99.1; O2SAT 92–97
[2017-09-18] MEDS: cefTRIAXone INJ 1,000 MG in SODIUM CHLORIDE 0.9% INJ 100 ML IV SCH ×2 (01:15→22:47)
--- NOTE | 2017-09-18 02:27 | HHI.HP ---
HPI Service [facility] Hospitalists Primary Care Physician Unknown Admission Diagnosis SEPSIS, PNA Diagnoses: Travel History International Travel<30 Days: No Contact w/Intl Traveler <30 Da: No History of Present Illness 66-year-old male with a past medical history significant for throat cancer status post chemotherapy and radiation completed over a year ago and HIV presents to the emergency department with a 2 day history of productive cough, increasing secretions and shortness of breath. The patient has a tracheostomy status post radiation therapy. He reports he just returned from [place] where he was visiting with friends over the holidays and feels that he wore himself out during that trip. He endorses subjective fever/chills. He was found to be febrile to 103.0 on arrival to the emergency department. Chest x-ray with no acute infiltrate however CT of the chest showed scattered patchy airspace disease in the left perihilar distribution in both lung bases concerning for bilateral pneumonic infiltrates. Review of Systems Subjective fever/chills Denies blurry vision, otorrhea, rhinorrhea Denies sore throat, positive cough No chest pain, palpitations, positive shortness of breath No abdominal pain Denies constipation/diarrhea/nausea/vomiting Denies muscle pain/weakness No rashes Past Family Social History Past Medical History History of throat cancer status post chemotherapy and radiation completed over a year ago HIV, compliant with his antiretrovirals, Dr. Blanca is his infectious disease doctor Past Surgical History Patient reports he had 5 surgeries for his throat cancer, he is unsure of exactly what was done G-tube placement Port placement left chest Hernia repair Reported Medications Reported Meds & Active Scripts Active Active Prescriptions or Reported Medications Unobtainable Allergies: Coded Allergies: morphine (Unverified Allergy, Severe, Seizures, 06/05/17) WHEN TAKEN IN COMBINATION WITH OXYCODONE oxycodone (Unverified Allergy, Severe, Seizures, 06/05/17) WHEN TAKEN IN COMBINATION WITH MORPHINE Family History Denies family history of coronary artery disease or diabetes mellitus Social History Denies tobacco. Quit alcohol in 2014. No illicit drug use. Physical Exam Vital Signs Vital Signs Date Time Temp Pulse Resp B/P (MAP) Pulse Ox O2 Delivery O2 Flow Rate FiO2 09/18/17 01:59 09/18/17 01:48 79 14 119/73 (88) 96 Room Air 2.00 09/17/17 23:53 97 Nasal Cannula 2.50 09/17/17 20:12 95 Nasal Cannula 2.00 09/17/17 20:11 100.7 105 18 139/73 (95) 92 09/17/17 18:43 103.0 09/17/17 17:53 100.2 129 18 140/80 (100) 90 Physical Exam GENERAL: Thin male lying in bed SKIN: No rashes, ecchymoses or lesions. Cool and dry. HEAD: Atraumatic. Normocephalic. No temporal or scalp tenderness. EYES: Pupils equal round and reactive. Extraocular motions intact. No scleral icterus. No injection or drainage. ENT: Nose without bleeding, purulent drainage or septal hematoma. Throat without erythema, tonsillar hypertrophy or exudate. Uvula midline. Airway patent. NECK: Trachea midline. No JVD or lymphadenopathy. Supple, nontender, no meningeal signs. Tracheostomy in place, capped. CARDIOVASCULAR: Regular rate and rhythm without murmurs, gallops, or rubs. CHEST: Port in the left chest RESPIRATORY: Breath sounds diminished in the bases bilaterally. No wheezes, rales, or rhonchi. GASTROINTESTINAL: Abdomen soft, non-tender, nondistended. No hepato-splenomegaly , or palpable masses. No guarding. G-tube in place. MUSCULOSKELETAL: Extremities without clubbing, cyanosis, or edema. No joint tenderness, effusion, or edema noted. No calf tenderness. Negative Homans sign bilaterally. NEUROLOGICAL: Awake and alert. Cranial nerves II through XII intact. Motor and sensory grossly within normal limits. Normal speech. Laboratory Laboratory Tests Test 09/17/17 18:32 09/17/17 19:04 White Blood Count 10.0 Red Blood Count 4.27 Hemoglobin 11.4 Hematocrit 35.3 Mean Corpuscular Volume 82.5 Mean Corpuscular Hemoglobin 26.6 Mean Corpuscular Hemoglobin Concent 32.3 Red Cell Distribution Width 13.5 Platelet Count 102 Mean Platelet Volume 9.9 Neutrophils (%) (Auto) 81.9 Lymphocytes (%) (Auto) 9.1 Monocytes (%) (Auto) 7.3 Eosinophils (%) (Auto) 1.1 Basophils (%) (Auto) 0.6 Neutrophils # (Auto) 8.2 Lymphocytes # (Auto) 0.9 Monocytes # (Auto) 0.7 Eosinophils # (Auto) 0.1 Basophils # (Auto) 0.1 CBC Comment DIFF FINAL Differential Comment Prothrombin Time 12.5 Prothromb Time International Ratio 1.1 Activated Partial Thromboplast Time 26.9 Blood Urea Nitrogen 20 Creatinine 0.96 Random Glucose 153 Total Protein 8.4 Albumin 3.6 Calcium Level 8.7 Magnesium Level 1.4 Alkaline Phosphatase 66 Aspartate Amino Transf (AST/SGOT) 18 Alanine Aminotransferase (ALT/SGPT) 16 Total Bilirubin 0.6 Sodium Level 132 Potassium Level 4.1 Chloride Level 100 Carbon Dioxide Level 27.2 Anion Gap 5 Estimat Glomerular Filtration Rate 96 Lactic Acid Level 1.6 Urine Color YELLOW Urine Turbidity CLEAR Urine pH 8.0 Urine Specific [place] 1.014 Urine Protein TRACE Urine Glucose (UA) NEG Urine Ketones NEG Urine Occult Blood NEG Urine Nitrite NEG Urine Bilirubin NEG Urine Urobilinogen LESS THAN 2.0 Urine Leukocyte Esterase NEG Urine RBC 1 Urine WBC LESS THAN 1 Urine Squamous Epithelial Cells <1 Microscopic Urinalysis Comment CATH-CULT NOT IND Date/Time Source Procedure Growth Status 09/17/17 18:32 Blood Peripheral Aerobic Blood Culture Pending Received 09/17/17 18:32 Blood Peripheral Anaerobic Blood Culture Pending Received 09/17/17 18:42 Nasal Washing Influenza Types A,B Antigen (KARMEN) - Final NEGATIVE FOR FLU A AND B ANTIGEN.... Complete 09/17/17 23:50 Urine Clean Catch Legionella Antigen Pending Received 09/17/17 23:50 Urine Clean Catch Streptococcus pneumoniae Antigen (M Pending Received Result Diagram: 09/17/17183109/17/171831 Caprini VTE Risk Assessment Caprini VTE Risk Assessment: Mod/High Risk (score >= 2) Caprini Risk Assessment Model Point Value = 1 Point Value = 2 Point Value = 3 Point Value = 5 Age 41-60 Minor surgery BMI > 25 kg/m2 Swollen legs Varicose veins or History of unexplained or recurrent spontaneous Oral contraceptives or hormone replacement Sepsis (< 1 month) Serious lung disease, including pneumonia (< 1 month) Abnormal pulmonary function Acute myocardial infarction Congestive heart failure (< 1 month) History of inflammatory bowel disease Medical patient at bed rest Age 61-74 Arthroscopic surgery Major open surgery (> 45 min) Laparoscopic surgery (> 45 min) Malignancy Confined to bed (> 72 hours) Immobilizing plaster cast Central venous access Age >= 75 History of VTE Family history of VTE Factor V Leiden Prothrombin [id number] Lupus anticoagulant Anticardiolipin antibodies Elevated serum homocysteine Heparin-induced thrombocytopenia Other congenital or acquired thrombophilia Stroke (< 1 month) Elective arthroplasty Hip, pelvis, or leg fracture Acute spinal cord injury (< 1 month) Prophylaxis Regimen Total Risk Factor Score Risk Level Prophylaxis Regimen 0-1 Low Early ambulation 2 Moderate Order ONE of the following: *Sequential Compression Device (SCD) *Heparin 5000 units SQ BID 3-4 Higher Order ONE of the following medications: *Heparin 5000 units SQ TID *Enoxaparin/Lovenox 40 mg SQ daily (WT < 150 kg, CrCl > 30 mL/min) *Enoxaparin/Lovenox 30 mg SQ daily (WT < 150 kg, CrCl > 10-29 mL/min) *Enoxaparin/Lovenox 30 mg SQ BID (WT < 150 kg, CrCl > 30 mL/min) AND/OR *Sequential Compression Device (SCD) 5 or more Highest Order ONE of the following medications: *Heparin 5000 units SQ TID (Preferred with Epidurals) *Enoxaparin/Lovenox 40 mg SQ daily (WT < 150 kg, CrCl > 30 mL/min) *Enoxaparin/Lovenox 30 mg SQ daily (WT < 150 kg, CrCl > 10-29 mL/min) *Enoxaparin/Lovenox 30 mg SQ BID (WT < 150 kg, CrCl > 30 mL/min) AND *Sequential Compression Device (SCD) Assessment and Plan Assessment and Plan 66-year-old male with a past medical history significant for throat cancer and HIV presents with bilateral pneumonia. 1. Pneumonia CT chest significant for scattered patchy airspace disease in the left perihilar distribution and in both lung bases concerning for bilateral pneumonic infiltrates, reviewed by me Mast/Nabil Sputum culture pending Legionella/pneumococcal urinary antigen pending Sputum culture pending 2. History of throat cancer with chronic tracheostomy and G-tube Consult pulmonology, appreciate recommendations Per patient, he has an appointment at [facility] on Sunday for evaluation of his chronic tracheostomy Tube feeds ordered with dietary consult 3. HIV Patient is compliant with his antiretroviral medication He cannot remember which medications he is on Restart home antiretrovirals once medication reconciliation completed 4. Hypomagnesemia Supplemented with IV magnesium in the ED Repeat Mg in am FEN NPO Tube feeds Electrolytes: Monitor and replete when necessary Lovenox Case discussed with ER physician at length Physician Certification 2 Midnight Certification Type: Admission for Inpatient Services Order for Inpatient Services The services are ordered in accordance with Medicare regulations or non- Medicare payer requirements, as applicable. In the case of services not specified as inpatient-only, they are appropriately provided as inpatient services in accordance with the 2-midnight benchmark. Estimated LOS (days): 2 2 days is the estimated time the patient will need to remain in the hospital, assuming treatment plan goals are met and no additional complications. Post-Hospital Plan: Not yet determined Rachel Matamoros MD Sep 18, 2017 02:27
[2017-09-18] MEDS: RESP: ALBUTEROL 2.5 MG/IPRATROPIUM 0.5 MG NEB (SCH) INH ×4 (03:20→21:17)
[2017-09-18 12:24] LABS: AUTOMATED NEUTROPHIL # 5.5 TH/MM3 (1.8-7.7); BASOPHIL % 0.6 % (0.0-2.0); EOSINOPHIL # 0.3 TH/MM3 (0-0.4); HEMATOCRIT 32.5 % (39.0-51.0); LYMPH % 12.5 % (9.0-44.0); LYMPHOCYTE # 0.9 TH/MM3 (1.0-4.8); MEAN CELL VOLUME 83.2 FL (80.0-100.0); MEAN CORPUSCULAR HEMOGLOBIN 26.3 PG (27.0-34.0); MEAN CORPUSCULAR HGB CONC 31.6 % (32.0-36.0); MONO % 7.9 % (0.0-8.0); PLATELET COUNT 96 TH/MM3 (150-450); RED BLOOD COUNT 3.91 MIL/MM3 (4.50-5.90); RED CELL DISTRIBUTION WIDTH 13.9 % (11.6-17.2); WHITE BLOOD COUNT 7.3 TH/MM3 (4.0-11.0)
[2017-09-18 12:47] LABS: BICARBONATE 24.2 MEQ/L (21.0-32.0); MAGNESIUM 1.7 MG/DL (1.5-2.5)
[2017-09-18 13:31] LABS: HEMO FLAGS AUTO DIFF
[2017-09-18 13:33] LABS: TOXIC GRANULATION 1+ (NORMAL); TOXIC VACUOLATION PRESENT (NONE SEEN)
[2017-09-18 13:39] LABS: PLATELET ESTIMATE SMEAR LOW (NORMAL); PLATELET MORPHOLOGY NORMAL (NORMAL); SCAN/DIFF AUTO DIFF CONFIRMED
--- NOTE | 2017-09-18 17:11 | EKG ---
Date Performed: 09/17/2017 Time Performed: 19:04:27 PTAGE: 66 years EKG: SINUS TACHYCARDIA BORDERLINE LEFT AXIS DEVIATION NONSPECIFIC ST & T-WAVE ABNORMALITY When c ompared to previous tracing, the patient is now Tachycardic. ABNORMAL RHYTHM ECG PREVIOUS TRACING : 01/16/2017 19.14 DOCTOR: Мария Jane Interpretating Date/Time 09/18/2017 17:10:22
--- NOTE | 2017-09-18 19:07 | HHI.PR ---
Addendum to Inpatient Note Addendum Reason: Additional Documentation Additional Information Patient denies cp, sob. is AAOX3, nad. Breath sounds diminished at the bases. No edema in lower extremities PAtient with pna being treated with IV antibiotics which will be continued. Continue supplemental o2, kerrie. Milan Marley MD Sep 18, 2017 19:07
--- NOTE | 2017-09-18 19:54 | MB ---
cc: ZENAIDA NAVAS DATE OF CONSULTATION 09/18/[address] Rachel Matamoros. REASON FOR CONSULTATION Evaluation for pulmonary management, trache care and pneumonia. HISTORY OF THE PRESENT ILLNESS Mr. Patten is a 66-year-old -[place] male with history of HIV disease, CA of the throat status post radiation treatment. He also fall. He also follows at [facility]. The patient came to the hospital with 2 day history of cough and congestion. He did not have fever at home but he says that it was noted that he had a fever of 103 in the hospital. He is not able to bring up significant phlegm. No nausea or vomiting. He was evaluated in the emergency room. IMAGING His CTA of the chest shows scattered patchy airspace disease in the left perihilar distribution and at both lung bases. No pulmonary embolism was seen. LABORATORY DATA His CBC showed WBC count 7.3, hemoglobin 10.3, hematocrit 32.5, MCV 88, platelet count 96. Sodium 137, potassium 4.0, chloride 104, CO2 24, BUN 14, creatinine 0.7. PAST MEDICAL HISTORY Significant for: 1. A history of HIV disease. He follows with Dr. Blanca. 2. History of cancer of the throat status post radiation treatment. He follows with ear, nose, and throat specialist at [facility] and also at [facility]. 3. History of tracheostomy. 4. History of hernia surgery. 5. History of rectal problem for which he had an appointment with Dr. Subramanian. 6. He has had G tube placement. MEDICATIONS He is currently takin. Zithromax 500 milligrams daily. 2. Albuterol / Atrovent nebulizer treatment. 3. Rocephin 1 gram a day. 4. Lovenox 40 milligrams daily. ALLERGIES HE IS ALLERGIC TO MORPHINE AND OXYCODONE. SOCIAL HISTORY He has no history of any smoking or alcohol use. He got HIV by sexual contact. 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 FAMILY HISTORY He is single. He has six children. He lives alone. REVIEW OF SYSTEMS Denies any weight loss. No headache, dizziness. No chest pain. No DVT or pulmonary embolism. PHYSICAL EXAMINATION GENERAL: Well-developed, well-nourished male in no acute distress. VITAL SIGNS: His blood pressure 139/73, heart rate 105, respiration 18, temperature 98.7. HEENT: Pupils are equal and reactive to light. Oral mucosa, nasal mucosa normal. NECK: Supple. He has a tracheostomy tube in place. CHEST: Air entry equal bilaterally. He has a few scattered rales. CARDIOVASCULAR: S1-S2 normal. ABDOMEN: Soft, nondistended. He has a PEG tube in place. EXTREMITIES: No edema. IMPRESSION 1. Bilateral patchy infiltrates likely pneumonia, possibility of aspiration is not ruled out. 2. HIV disease. 3. CA of the throat status post radiation treatment. 4. Dysphagia. PLAN Will continue antibiotic Rocephin, Zithromax. Check his culture. Give him aerosol treatment and continue trache. He is stable on room air. He is on tube feeding. Further treatment will depend on the course in the hospital. Thank you Dr. Matamoros for this consultation. MD JENNIFER Hickman/JAMIE /6:35 PM /7:28 PM
[2017-09-18] MEDS: SODIUM CHLORIDE 0.9% FLUSH 10 ML FLUSH IV FLUSH SCH (21:00)
[2017-09-18] MEDS: AZITHROMYCIN INJ 500 MG in SODIUM CHLOR 0.9% 250 ML INJ 250 ML IV SCH (21:19)
[2017-09-18] MEDS: ENOXAPARIN SODIUM 40 MG/0.4 ML SYRINGE SQ SCH (22:47)
[2017-09-19] VITALS (9 sets, daily range): BP systolic 133–160; BP diastolic 76–95; PULSE 71–101; RESP 18–20; TEMP 97.3–98.6; O2SAT 93–98
[2017-09-19] MEDS ORDERED: diphenhydrAMINE HCL 25 MG CAP PO ONE (00:15)
[2017-09-19] MEDS: RESP: ALBUTEROL 2.5 MG/IPRATROPIUM 0.5 MG NEB (SCH) INH ×2 (04:24→08:18)
[2017-09-19] MEDS: SODIUM CHLORIDE 0.9% FLUSH 10 ML FLUSH IV FLUSH SCH ×2 (09:00→20:37)
[2017-09-19] MEDS: ACETAMINOPHEN 650 MG/20.3 ML UDC G-TUBE PRN (10:21)
--- NOTE | 2017-09-19 13:30 | HHI.PR ---
Subjective Remarks Patient had a several episodes of pauses on telemetry - the longest being 3.7 seconds. Objective Vitals Vital Signs Date Time Temp Pulse Resp B/P (MAP) Pulse Ox O2 Delivery O2 Flow Rate FiO2 09/19/17 09:00 99 Room Air 09/19/17 08:19 98 21 09/19/17 08:00 98.6 94 18 133/88 (103) 94 09/19/17 04:26 94 09/19/17 04:00 97.5 84 20 137/95 (109) 93 09/19/17 04:00 Room Air Trach Collar 09/19/17 04:00 78 09/19/17 00:00 97 09/19/17 00:00 98.2 101 20 134/76 (95) 93 09/19/17 00:00 Room Air 09/18/17 20:00 86 09/18/17 20:00 Room Air Trach Collar 09/18/17 20:00 99.1 80 20 129/81 (97) 93 09/18/17 16:33 93 09/18/17 16:30 98.7 89 18 139/89 (106) 94 09/18/17 15:59 87 I/O 09/18/17 09/18/17 09/18/17 09/19/17 09/19/17 09/19/17 07:00 15:00 23:00 07:00 15:00 23:00 Intake Total 2550 ml Output Total 350 ml 500 ml 400 ml 375 ml Balance 2200 ml -500 ml -400 ml -375 ml Intake Oral 0 ml IV Total 2550 ml Output Urine Total 350 ml 500 ml 400 ml 375 ml # Voids 1 3 # Bowel Movements 0 1 0 Result Diagram: 09/18/17 1204 09/18/17 1204 Imaging Last Impressions Chest X-Ray 09/17/17 1805 Signed Impressions: Service Date/Time: Sunday, September 17, 2017 18:12 - CONCLUSION: No acute infiltrate. Yohannes Gaona MD CT Angiography 09/17/17 0000 Signed Impressions: Service Date/Time: Sunday, September 17, 2017 20:37 - CONCLUSION: 1. Scattered patchy airspace disease in the left perihilar distribution and in both lung bases, right greater than left. Findings are concerning for bilateral pneumonic infiltrates, most prominent in the right base. 2. No pulmonary embolus Yohannes Gaona MD Objective Remarks GENERAL: Thin male lying in bed SKIN: No rashes, ecchymoses or lesions. Cool and dry. HEAD: Atraumatic. Normocephalic. No temporal or scalp tenderness. EYES: Pupils equal round and reactive. Extraocular motions intact. No scleral icterus. No injection or drainage. ENT: Nose without bleeding, purulent drainage or septal hematoma. Throat without erythema, tonsillar hypertrophy or exudate. Uvula midline. Airway patent. NECK: Trachea midline. No JVD or lymphadenopathy. Supple, nontender, no meningeal signs. Tracheostomy in place, capped. CARDIOVASCULAR: Regular rate and rhythm without murmurs, gallops, or rubs. CHEST: Port in the left chest RESPIRATORY: Breath sounds diminished in the bases bilaterally. No wheezes, rales, or rhonchi. GASTROINTESTINAL: Abdomen soft, non-tender, nondistended. No hepato-splenomegaly , or palpable masses. No guarding. G-tube in place. MUSCULOSKELETAL: Extremities without clubbing, cyanosis, or edema. No joint tenderness, effusion, or edema noted. No calf tenderness. Negative Homans sign bilaterally. NEUROLOGICAL: Awake and alert. Cranial nerves II through XII intact. Motor and sensory grossly within normal limits. Normal speech. Medications and IVs Current Medications Medications (Trade) Dose Ordered Sig/Quinton Route Start Time Stop Time Status Last Admin (NS Flush) 2 ml UNSCH PRN IV FLUSH 09/17/17 23:15 (NS Flush) 2 ml BID IV FLUSH 09/18/17 09:00 09/19/17 09:00 Ceftriaxone Sodium 1000 mg/ Sodium Chloride 100 ml @ 200 mls/hr Q24H IV 09/17/17 23:15 09/18/17 22:47 Azithromycin 500 mg/Sodium Chloride 250 ml @ 250 mls/hr Q24H IV 09/18/17 22:00 09/18/17 21:19 (Tylenol 650 Mg/ 20 ml Liq) 650 mg Q4H PRN G-TUBE 09/17/17 23:15 09/19/17 10:21 (Duoneb Neb) 1 ampule Q4HR NEB PRN INH 09/17/17 23:15 (Lovenox Inj) 40 mg Q24H SQ 09/17/17 23:15 Urinary Catheter: No Vascular Central Line Catheter: No A/P Problem List: (1) Sepsis ICD Code: A41.9 - Sepsis, unspecified organism Status: Acute Plan: Sepsis present on admission. Patient presented with tachycardia, heart rate more than 90 as well as fever with a MAXIMUM TEMPERATURE of 103.0. Sepsis likely secondary to community-acquired pneumonia. Chest x-ray did not show acute disease. However CT of the chest showed significant scattered patchy airspace disease in the left perihilar distribution in both lung bases concerning for bilateral lung infiltrates. This was reviewed by me. Blood cultures obtained and negative x2 days. Continue to follow up blood cultures. Continue treatment with IV Rocephin and IV azithromycin. Sepsis seems to be improving with improved tachycardia and without fevers for more than 24 hours. (2) Community acquired pneumonia ICD Code: J18.9 - Pneumonia, unspecified organism Status: Acute Plan: Continue IV antibiotics as described above. Influenza A and B antigens negative. Legionella and Streptococcus pneumoniae antigen negative. Sputum culture shows heavy growth of normal respiratory haroldo. (3) History of throat cancer ICD Code: Z85.819 - Personal history of malignant neoplasm of unspecified site of lip, oral cavity, and pharynx Status: Chronic Plan: With chronic tracheostomy and G-tube. Pulmonology consulted. Recommendations appreciated. As per patient, has an appointment at [facility] on Sunday for evaluation of his chronic tracheostomy. Continue to feeding as per dietary recommendations. (4) HIV (human immunodeficiency virus infection) ICD Code: B20 - Human immunodeficiency virus [HIV] disease Status: Chronic Plan: Patient states he is compliant with his anti-retroviral medication. Patient however cannot remember which medications he is on. We'll restart home antiretrovirals once medication reconciliation completed. (5) Hypomagnesemia ICD Code: E83.42 - Hypomagnesemia Status: Resolved Plan: Status post IV magnesium sulfate. Admission after IV repletion 1 from 1.4-1.7. I will check a stat BMP, magnesium since patient had a sinus pause. (6) Sinus pause ICD Code: I45.5 - Other specified heart block Status: Acute Plan: Unclear etiology at this time. The patient is not on any medications that would cause bradycardia. I will check BMP and electrolytes stat, check an EKG to assess for QT changes given that the patient is on IV azithromycin. I will try to keep a repeat potassium to be around 4 and magnesium around 2. (7) Hyponatremia ICD Code: E87.1 - Hypo-osmolality and hyponatremia Status: Resolved Plan: Likely hypovolemic hyponatremia, patient with sodium of 132 on admission. 137 today. Continue to monitor sodium levels. (8) Hyperglycemia ICD Code: R73.9 - Hyperglycemia, unspecified Plan: Patient does not have a personal history of diabetes. Blood sugar is noted to be elevated. Likely hyperglycemia due to acute illness. I will monitor Accu-Cheks and place on SSI with insulin NovoLog. Check hemoglobin A1c. Problem Qualifiers (1) Sepsis: Qualified Codes: A41.9 - Sepsis, unspecified organism (2) Community acquired pneumonia: Qualified Codes: J18.9 - Pneumonia, unspecified organism Milan Marley MD Sep 19, 2017 13:30
[2017-09-19 16:40] LABS: ALKALINE PHOSPHATASE 62 U/L (45-117); ALT (GPT) 17 U/L (12-78); ANION GAP 6 MEQ/L (5-15); AST (GOT) 15 U/L (15-37); BICARBONATE 27.3 MEQ/L (21.0-32.0); BLOOD UREA NITROGEN 12 MG/DL (7-18); CHLORIDE 105 MEQ/L (98-107); GLOMERULAR FILTRATION RATE 155 ML/MIN (>89); MAGNESIUM 1.7 MG/DL (1.5-2.5); POTASSIUM 4.3 MEQ/L (3.5-5.1); SODIUM (NA) 138 MEQ/L (136-145); TOTAL BILIRUBIN ADULT 0.4 MG/DL (0.2-1.0)
--- NOTE | 2017-09-19 19:37 | HHI.PR ---
Subjective Remarks 66 YOAA MAle with Ca throat, s/p radiation,trach, COPD,HIV dis Feels better Wants to take po food Planning to go to [place] in AM for his appointment Objective Vital Signs Vital Signs Date Time Temp Pulse Resp B/P (MAP) Pulse Ox O2 Delivery O2 Flow Rate FiO2 09/19/17 18:16 94 09/19/17 16:09 98.6 71 18 137/82 (100) 95 09/19/17 12:00 97.3 90 18 134/81 (98) 93 09/19/17 09:00 99 Room Air 09/19/17 08:19 98 21 09/19/17 08:00 87 09/19/17 08:00 98.6 94 18 133/88 (103) 94 09/19/17 04:26 94 09/19/17 04:00 97.5 84 20 137/95 (109) 93 09/19/17 04:00 Room Air Trach Collar 09/19/17 04:00 78 09/19/17 00:00 97 09/19/17 00:00 98.2 101 20 134/76 (95) 93 09/19/17 00:00 Room Air 09/18/17 20:00 86 09/18/17 20:00 Room Air Trach Collar 09/18/17 20:00 99.1 80 20 129/81 (97) 93 I/O 09/18/17 09/18/17 09/18/17 09/19/17 09/19/17 09/19/17 07:00 15:00 23:00 07:00 15:00 23:00 Intake Total 2550 ml Output Total 350 ml 500 ml 400 ml 375 ml 525 ml Balance 2200 ml -500 ml -400 ml -375 ml -525 ml Intake Oral 0 ml IV Total 2550 ml Output Urine Total 350 ml 500 ml 400 ml 375 ml 525 ml # Voids 1 3 # Bowel Movements 0 1 0 Result Diagram: 09/18/17 1204 09/19/17 1521 Objective Remarks GENERAL: MBMN male,NAD SKIN: Warm and dry. HEAD: Normocephalic. EYES: No scleral icterus. No injection or drainage. NECK: Supple, trachea midline. No JVD or lymphadenopathy. Has trach, radiation changes in neck CARDIOVASCULAR: Regular rate and rhythm without murmurs, gallops, or rubs. RESPIRATORY: Breath sounds equal bilaterally. No accessory muscle use. GASTROINTESTINAL: Abdomen soft, non-tender, nondistended. has PEG tube MUSCULOSKELETAL: No cyanosis, or edema. BACK: Nontender without obvious deformity. No CVA tenderness. A/P Assessment and Plan Pneumonia COPD HIV Positive S/P Trach Ca throat, s/p radiation Dysphagia PLAN: Cont Abx Aerosol nebs SQ Lovenox TF DC plans underway. Blair Corral MD Sep 19, 2017 19:37
[2017-09-19] MEDS: AZITHROMYCIN INJ 500 MG in SODIUM CHLOR 0.9% 250 ML INJ 250 ML IV SCH (20:37)
[2017-09-19 21:55] LABS: HEMOGLOBIN A1a 1.4 %; HEMOGLOBIN A1b 0.7 %; HEMOGLOBIN Ao 85.2 %; HEMOGLOBIN F 2.5 %; HEMOGLOBIN LA1C 1.9 %; HEMOGLOBIN P3 2.8 %
[2017-09-19] MEDS: cefTRIAXone INJ 1,000 MG in SODIUM CHLORIDE 0.9% INJ 100 ML IV SCH (21:58)
[2017-09-19] MEDS: ENOXAPARIN SODIUM 40 MG/0.4 ML SYRINGE SQ SCH (21:58)
[2017-09-20] VITALS: BP 144/90; PULSE 71; PULSE 75; RESP 18; TEMP 98.3; O2SAT 94
[2017-09-20] MEDS ORDERED: diphenhydrAMINE HCL 25 MG CAP PO ONE (01:45)
[2017-09-20 04:00] VITALS: BP 146/91; PULSE 70; PULSE 96; RESP 18; TEMP 97.4; O2SAT 92
[2017-09-20] MEDS: SODIUM CHLORIDE 0.9% FLUSH 10 ML FLUSH IV FLUSH SCH (09:00)
[2017-09-20] MEDS: ACETAMINOPHEN 650 MG/20.3 ML UDC G-TUBE PRN (09:32)
[2017-09-20] MEDS ORDERED: CEFU1TAB18 PO (12:16)
[2017-09-20] MEDS ORDERED: AZIT250T3 PO (12:16)
[2017-09-20] MEDS ORDERED: HYDR1SOL3 PO (12:20)
--- NOTE | 2017-09-20 12:20 | HHI.DCPOC ---
Discharge Care Plan Diagnosis: (1) Community acquired pneumonia (2) History of throat cancer (3) HIV (human immunodeficiency virus infection) (4) Hyponatremia (5) Hyperglycemia (6) Hypomagnesemia Goals to Promote Your Health * To prevent worsening of your condition and complications * To maintain your health at the optimal level Directions to Meet Your Goals Take your medications as prescribed Follow your dietary instruction Follow activity as directed Keep your appointments as scheduled Take your immunizations and boosters as scheduled If your symptoms worsen call your PCP, if no PCP go to Urgent Care Center or Emergency Room Smoking is Dangerous to Your Health. Avoid second hand smoke Call the 24-hour hour crisis hotline for domestic abuse at Milan Marley MD Sep 20, 2017 12:20
--- NOTE | 2017-09-20 12:32 | HHI.DS ---
Discharge Summary Admission Date Sep 17, 2017 at 22:36 Admitting Diagnosis SEPSIS, PNA (1) Sepsis ICD Code: A41.9 - Sepsis, unspecified organism Diagnosis: Principal Status: Resolved (2) Community acquired pneumonia ICD Code: J18.9 - Pneumonia, unspecified organism Diagnosis: Principal Status: Acute (3) History of throat cancer ICD Code: Z85.819 - Personal history of malignant neoplasm of unspecified site of lip, oral cavity, and pharynx Diagnosis: Secondary Status: Chronic (4) HIV (human immunodeficiency virus infection) ICD Code: B20 - Human immunodeficiency virus [HIV] disease Diagnosis: Secondary Status: Chronic (5) Hypomagnesemia ICD Code: E83.42 - Hypomagnesemia Diagnosis: Principal Status: Resolved (6) Sinus pause ICD Code: I45.5 - Other specified heart block Diagnosis: Principal Status: Resolved (7) Hyponatremia ICD Code: E87.1 - Hypo-osmolality and hyponatremia Status: Resolved (8) Hyperglycemia ICD Code: R73.9 - Hyperglycemia, unspecified Diagnosis: Principal Status: Resolved Procedures none Brief History - From Admission 66-year-old male with a past medical history significant for throat cancer status post chemotherapy and radiation completed over a year ago and HIV presents to the emergency department with a 2 day history of productive cough, increasing secretions and shortness of breath. The patient has a tracheostomy status post radiation therapy. He reports he just returned from [place] where he was visiting with friends over the holidays and feels that he wore himself out during that trip. He endorses subjective fever/chills. He was found to be febrile to 103.0 on arrival to the emergency department. Chest x-ray with no acute infiltrate however CT of the chest showed scattered patchy airspace disease in the left perihilar distribution in both lung bases concerning for bilateral pneumonic infiltrates. CBC/BMP: 09/18/17 1204 09/19/17 1521 Significant Findings Laboratory Tests Test 09/17/17 18:32 09/17/17 19:04 09/18/17 12:04 09/19/17 15:21 Red Blood Count 4.27 MIL/MM3 (4.50-5.90) 3.91 MIL/MM3 (4.50-5.90) Hemoglobin 11.4 GM/DL (13.0-17.0) 10.3 GM/DL (13.0-17.0) Hematocrit 35.3 % (39.0-51.0) 32.5 % (39.0-51.0) Mean Corpuscular Hemoglobin 26.6 PG (27.0-34.0) 26.3 PG (27.0-34.0) Platelet Count 102 TH/MM3 (150-450) 96 TH/MM3 (150-450) Neutrophils (%) (Auto) 81.9 % (16.0-70.0) 75.0 % (16.0-70.0) Neutrophils # (Auto) 8.2 TH/MM3 (1.8-7.7) Lymphocytes # (Auto) 0.9 TH/MM3 (1.0-4.8) 0.9 TH/MM3 (1.0-4.8) Prothrombin Time 12.5 SEC (9.8-11.6) Blood Urea Nitrogen 20 MG/DL (7-18) Random Glucose 153 MG/DL (74-106) 139 MG/DL (74-106) Total Protein 8.4 GM/DL (6.4-8.2) Magnesium Level 1.4 MG/DL (1.5-2.5) Sodium Level 132 MEQ/L (136-145) Mean Corpuscular Hemoglobin Concent 31.6 % (32.0-36.0) Toxic Granulation 1+ (NORMAL) Toxic Vacuolation PRESENT (NONE SEEN) Platelet Estimate LOW (NORMAL) Calcium Level 8.2 MG/DL (8.5-10.1) Albumin 3.0 GM/DL (3.4-5.0) Troponin I LESS THAN 0.02 NG/ML Test 09/19/17 19:42 Hemoglobin A1c 4.2 % (4.3-6.0) Troponin I LESS THAN 0.02 NG/ML Imaging Last Impressions Chest X-Ray 09/17/17 1805 Signed Impressions: Service Date/Time: Sunday, September 17, 2017 18:12 - CONCLUSION: No acute infiltrate. Yohannes Gaona MD CT Angiography 09/17/17 0000 Signed Impressions: Service Date/Time: Sunday, September 17, 2017 20:37 - CONCLUSION: 1. Scattered patchy airspace disease in the left perihilar distribution and in both lung bases, right greater than left. Findings are concerning for bilateral pneumonic infiltrates, most prominent in the right base. 2. No pulmonary embolus Yohannes Gaona MD PE at Discharge GENERAL: Thin male lying in bed SKIN: No rashes, ecchymoses or lesions. Cool and dry. HEAD: Atraumatic. Normocephalic. No temporal or scalp tenderness. EYES: Pupils equal round and reactive. Extraocular motions intact. No scleral icterus. No injection or drainage. ENT: Nose without bleeding, purulent drainage or septal hematoma. Throat without erythema, tonsillar hypertrophy or exudate. Uvula midline. Airway patent. NECK: Trachea midline. No JVD or lymphadenopathy. Supple, nontender, no meningeal signs. Tracheostomy in place, capped. CARDIOVASCULAR: Regular rate and rhythm without murmurs, gallops, or rubs. CHEST: Port in the left chest RESPIRATORY: Breath sounds diminished in the bases bilaterally. No wheezes, rales, or rhonchi. GASTROINTESTINAL: Abdomen soft, non-tender, nondistended. No hepato-splenomegaly , or palpable masses. No guarding. G-tube in place. MUSCULOSKELETAL: Extremities without clubbing, cyanosis, or edema. No joint tenderness, effusion, or edema noted. No calf tenderness. Negative Homans sign bilaterally. NEUROLOGICAL: Awake and alert. Cranial nerves II through XII intact. Motor and sensory grossly within normal limits. Normal speech. Pt update on day of discharge Patient denies chest pain or shortness of breath. Patient has good oxygen saturation on room air. Denies fevers or chills. Patient will be discharged home on oral antibiotics. The patient was advised to resume his HIV antiretroviral medication, since he was not able to provide his medication list while hospitalized. Hospital Course (1) Sepsis Sepsis present on admission. Patient presented with tachycardia, heart rate more than 90 as well as fever with a MAXIMUM TEMPERATURE of 103.0. Sepsis likely secondary to community-acquired pneumonia. Chest x-ray did not show acute disease. However CT of the chest showed significant scattered patchy airspace disease in the left perihilar distribution in both lung bases concerning for bilateral lung infiltrates. Blood cultures obtained and negative to follow up blood cultures. Continue treatment with IV Rocephin and IV azithromycin. Sepsis seems to be improving with improved tachycardia and without fevers for more than 24 hours. (2) Community acquired pneumonia ICD Code: J18.9 - Pneumonia, unspecified organism Status: Acute Plan: Continue IV antibiotics as described above. Influenza A and B antigens negative. Legionella and Streptococcus pneumoniae antigen negative. Sputum culture shows heavy growth of normal respiratory haroldo. (3) History of throat cancer ICD Code: Z85.819 - Personal history of malignant neoplasm of unspecified site of lip, oral cavity, and pharynx Status: Chronic Plan: With chronic tracheostomy and G-tube. Pulmonology consulted. Recommendations appreciated. As per patient, has an appointment at [facility] on Sunday for evaluation of his chronic tracheostomy. Continue to feeding as per dietary recommendations. (4) HIV (human immunodeficiency virus infection) ICD Code: B20 - Human immunodeficiency virus [HIV] disease Status: Chronic Plan: Patient states he is compliant with his anti-retroviral medication. Patient however cannot remember which medications he is on. We'll restart home antiretrovirals once medication reconciliation completed. (5) Hypomagnesemia ICD Code: E83.42 - Hypomagnesemia Status: Resolved Plan: Status post IV magnesium sulfate. Admission after IV repletion 1 from 1.4-1.7. I will check a stat BMP, magnesium since patient had a sinus pause. (6) Sinus pause ICD Code: I45.5 - Other specified heart block Status: Acute Plan: Unclear etiology at this time. The patient is not on any medications that would cause bradycardia. I will check BMP and electrolytes stat, check an EKG to assess for QT changes given that the patient is on IV azithromycin. I will try to keep a repeat potassium to be around 4 and magnesium around 2. (7) Hyponatremia ICD Code: E87.1 - Hypo-osmolality and hyponatremia Status: Resolved Plan: Likely hypovolemic hyponatremia, patient with sodium of 132 on admission. 137 today. Continue to monitor sodium levels. (8) Hyperglycemia ICD Code: R73.9 - Hyperglycemia, unspecified Plan: Patient does not have a personal history of diabetes. Blood sugar is noted to be elevated. Likely hyperglycemia due to acute illness. I will monitor Accu-Cheks and place on SSI with insulin NovoLog. Check hemoglobin A1c. Pt Condition on Discharge: Stable Discharge Disposition: Discharge Home Discharge Instructions DIET: Follow Instructions for: On Tube Feeding Activities you can perform: Regular-No Restrictions Milan Marley MD Sep 20, 2017 12:32
--- NOTE | 2017-09-20 12:34 | HHI.PR ---
Subjective Remarks Patient wants to go home Denies cp/sob satting well in room air. Afebrile Objective Vitals Vital Signs Date Time Temp Pulse Resp B/P (MAP) Pulse Ox O2 Delivery O2 Flow Rate FiO2 09/20/17 09:00 97 Room Air 09/20/17 04:00 96 09/20/17 04:00 97.4 70 18 146/91 (109) 92 09/20/17 00:00 75 09/20/17 00:00 98.3 71 18 144/90 (108) 94 09/19/17 20:00 97.3 72 18 160/92 (114) 95 09/19/17 20:00 71 09/19/17 20:00 Room Air 09/19/17 18:16 94 09/19/17 16:09 98.6 71 18 137/82 (100) 95 I/O 09/19/17 09/19/17 09/19/17 09/20/17 09/20/17 09/20/17 07:00 15:00 23:00 07:00 15:00 23:00 Intake Total 970 ml 0 ml Output Total 400 ml 375 ml 525 ml 300 ml Balance -400 ml -375 ml 445 ml -300 ml Intake Oral 0 ml IV Total 350 ml Tube Feeding 400 ml Other 220 ml Output Urine Total 400 ml 375 ml 525 ml 300 ml # Voids 1 # Bowel Movements 0 4 Result Diagram: 09/18/17 1204 09/19/17 1521 Imaging Last Impressions Chest X-Ray 09/17/17 1805 Signed Impressions: Service Date/Time: Sunday, September 17, 2017 18:12 - CONCLUSION: No acute infiltrate. Yohannes Gaona MD CT Angiography 09/17/17 0000 Signed Impressions: Service Date/Time: Sunday, September 17, 2017 20:37 - CONCLUSION: 1. Scattered patchy airspace disease in the left perihilar distribution and in both lung bases, right greater than left. Findings are concerning for bilateral pneumonic infiltrates, most prominent in the right base. 2. No pulmonary embolus Yohannes Gaona MD Objective Remarks GENERAL: Thin male lying in bed SKIN: No rashes, ecchymoses or lesions. Cool and dry. HEAD: Atraumatic. Normocephalic. No temporal or scalp tenderness. EYES: Pupils equal round and reactive. Extraocular motions intact. No scleral icterus. No injection or drainage. ENT: Nose without bleeding, purulent drainage or septal hematoma. Throat without erythema, tonsillar hypertrophy or exudate. Uvula midline. Airway patent. NECK: Trachea midline. No JVD or lymphadenopathy. Supple, nontender, no meningeal signs. Tracheostomy in place, capped. CARDIOVASCULAR: Regular rate and rhythm without murmurs, gallops, or rubs. CHEST: Port in the left chest RESPIRATORY: Breath sounds diminished in the bases bilaterally. No wheezes, rales, or rhonchi. GASTROINTESTINAL: Abdomen soft, non-tender, nondistended. No hepato-splenomegaly , or palpable masses. No guarding. G-tube in place. MUSCULOSKELETAL: Extremities without clubbing, cyanosis, or edema. No joint tenderness, effusion, or edema noted. No calf tenderness. Negative Homans sign bilaterally. NEUROLOGICAL: Awake and alert. Cranial nerves II through XII intact. Motor and sensory grossly within normal limits. Normal speech. Procedures none Medications and IVs Current Medications Medications (Trade) Dose Ordered Sig/Quinton Route Start Time Stop Time Status Last Admin (NS Flush) 2 ml UNSCH PRN IV FLUSH 09/17/17 23:15 (NS Flush) 2 ml BID IV FLUSH 09/18/17 09:00 09/20/17 09:00 Ceftriaxone Sodium 1000 mg/ Sodium Chloride 100 ml @ 200 mls/hr Q24H IV 09/17/17 23:15 09/19/17 21:58 Azithromycin 500 mg/Sodium Chloride 250 ml @ 250 mls/hr Q24H IV 09/18/17 22:00 09/19/17 20:37 (Tylenol 650 Mg/ 20 ml Liq) 650 mg Q4H PRN G-TUBE 09/17/17 23:15 09/20/17 09:32 (Duoneb Neb) 1 ampule Q4HR NEB PRN INH 09/17/17 23:15 (Lovenox Inj) 40 mg Q24H SQ 09/17/17 23:15 Urinary Catheter: No Vascular Central Line Catheter: Yes Assessment to: Continue Side: Right Reason for Continuation h/o throat cancer on chemotherapy. A/P Problem List: (1) Sepsis ICD Code: A41.9 - Sepsis, unspecified organism Status: Resolved Plan: Sepsis present on admission. Patient presented with tachycardia, heart rate more than 90 as well as fever with a MAXIMUM TEMPERATURE of 103.0. Sepsis likely secondary to community-acquired pneumonia. Chest x-ray did not show acute disease. However CT of the chest showed significant scattered patchy airspace disease in the left perihilar distribution in both lung bases concerning for bilateral lung infiltrates. This was reviewed by me. Continue treatment with IV Rocephin and IV azithromycin. Sepsis seems to be improving with improved tachycardia and without fevers for more than 24 hours. 09/20 Blood cultures came back positive for Corynebacterium not jk. Will consult ID and repeat blood cultures from periphery and port catheter. (2) Community acquired pneumonia ICD Code: J18.9 - Pneumonia, unspecified organism Status: Acute Plan: Continue IV antibiotics as described above. Influenza A and B antigens negative. Legionella and Streptococcus pneumoniae antigen negative. Sputum culture shows heavy growth of normal respiratory haroldo. (3) History of throat cancer ICD Code: Z85.819 - Personal history of malignant neoplasm of unspecified site of lip, oral cavity, and pharynx Status: Chronic Plan: With chronic tracheostomy and G-tube. Pulmonology consulted. Recommendations appreciated. As per patient, has an appointment at [facility] on Sunday for evaluation of his chronic tracheostomy. Continue to feeding as per dietary recommendations. (4) HIV (human immunodeficiency virus infection) ICD Code: B20 - Human immunodeficiency virus [HIV] disease Status: Chronic Plan: Patient states he is compliant with his anti-retroviral medication. Patient however cannot remember which medications he is on. We'll restart home antiretrovirals once medication reconciliation completed. 09/20 patient has still not provided list. Will have RN call patient's pharmacy and see if we can find out his HAART therapy and if he has been filling his prescriptions. (5) Hypomagnesemia ICD Code: E83.42 - Hypomagnesemia Status: Resolved Plan: Status post IV magnesium sulfate. Admission after IV repletion 1 from 1.4-1.7. 09/20 Will give magnesium sulfate 1 Gm IV since magnesium level is 1.7 and patient had sinus pause - will keep > 2. (6) Sinus pause ICD Code: I45.5 - Other specified heart block Status: Resolved Plan: Unclear etiology at this time. The patient is not on any medications that would cause bradycardia. I will check BMP and electrolytes stat, check an EKG to assess for QT changes given that the patient is on IV azithromycin. I will try to keep a repeat potassium to be around 4 and magnesium around 2. 09/20 no further events reported. continue to monitor on telemetry. (7) Hyponatremia ICD Code: E87.1 - Hypo-osmolality and hyponatremia Status: Resolved Plan: Likely hypovolemic hyponatremia, Resolved after IV normal saline administration. (8) Hyperglycemia ICD Code: R73.9 - Hyperglycemia, unspecified Status: Resolved Plan: Patient does not have a personal history of diabetes. Blood sugar is noted to be elevated. Likely hyperglycemia due to acute illness. Hemoglobin A1c normal. Hyperglycemia due to infection and stress. Continue SSI and to monitor accuchecks. Assessment and Plan GI prophylaxis: PPI. DVT Prophylaxis: SCD's Lovenox SQ. Discharge Planning Patient not midically cleared for DC. Patient with positive blood cultures. ID consulted. Problem Qualifiers (1) Sepsis: Qualified Codes: A41.9 - Sepsis, unspecified organism (2) Community acquired pneumonia: Qualified Codes: J18.9 - Pneumonia, unspecified organism Milan Marley MD Sep 20, 2017 12:34
[2017-09-20] MEDS ORDERED: MAGNESIUM SULFATE 1 GM PREMIX 100 ML IV ONE (13:00)
--- NOTE | 2017-09-20 15:35 | ECHRPT ---
Indication: sinus pause CONCLUSIONS The left ventricular systolic function is low normal with an estimated ejection fraction in the rang e of 50- 55%. Normal left ventricular size. Jpimj-[id number]-[id number] mitral valve regurgitation. There is mild tricuspid valve regurgitation. The estimated pulmonary arterial pressure is 43.2 mmHg. BP: / HR: Rhythm: MEASUREMENTS (Male / Female) Normal Values Technical Quality:Technically difficult study 2D ECHO LV Diastolic Diameter PLAX 4.4 cm 4.2 - 5.9 / 3.9 - 5.3 cm LV Systolic Diameter PLAX 3.4 cm IVS Diastolic Thickness 1.3 cm 0.6 - 1.0 / 0.6 - 0.9 cm LVPW Diastolic Thickness 0.9 cm 0.6 - 1.0 / 0.6 - 0.9 cm LV Relative Wall Thickness 0.5 RV Internal Dim ED PLAX 2.6 cm DOPPLER Mitral E Point Velocity 57.3 cm/s Mitral A Point Velocity 51.8 cm/s Mitral E to A Ratio 1.1 LV E' Lateral Velocity 8.9 cm/s Mitral E to LV E' Lateral Ratio 6.5 LV E' Septal Velocity 8.1 cm/s Mitral E to LV E' Septal Ratio 7.1 TR Peak Velocity 288.0 cm/s TR Peak Gradient 33.2 mmHg Right Atrial Pressure 10.0 mmHg Pulmonary Artery Systolic Pressu 43.2 mmHg Right Ventricular Systolic Press 43.2 mmHg FINDINGS LEFT VENTRICLE The left ventricular systolic function is low normal with an estimated ejection fraction in the rang e of 50- 55%. Normal left ventricular size. RIGHT VENTRICLE Normal right ventricular size and systolic function. LEFT ATRIUM The left atrial size is normal. RIGHT ATRIUM The right atrial size is normal. ATRIAL SEPTUM Normal atrial septal thickness without atrial level shunting by limited color doppler interrogation. AORTA The aortic root and proximal ascending aorta are normal in size on limited imaging. MITRAL VALVE Piqlz-ri-tbuw mitral valve regurgitation. Structurally normal mitral valve. AORTIC VALVE Trileaflet aortic valve. No aortic valve stenosis or regurgitation. TRICUSPID VALVE There is mild tricuspid valve regurgitation. Structurally normal tricuspid valve. The estimated pulmonary arterial pressure is 43.2 mmHg. PULMONARY VALVE No pulmonary valve regurgitation or stenosis. VESSELS The inferior vena cava is normal in size. PERICARDIUM No pericardial effusion. Gianni Patel MD (Electronically Signed) Final Date:20 September 2017 15:34
[2017-09-20] MEDS ORDERED: SODIUM CHLORIDE 0.9% FLUSH 10 ML FLUSH IV FLUSH PRN ×2 (15:45→16:00)
--- NOTE | 2017-09-20 15:58 | EKG ---
Date Performed: 09/19/2017 Time Performed: 13:44:48 PTAGE: 66 years EKG: Sinus rhythm NORMAL ECG Since PREVIOUS TRACING , no significant change noted PREVIOUS TRACIN09/17/2017 19.04 DOCTOR: Timothy Morales Interpretating Date/Time 09/20/2017 15:57:57
[2017-09-20] MEDS ORDERED: Vancomycin Consult Pharmacy 1 EA OTHER SCH (16:15)
[2017-09-20] MEDS ORDERED: VANCOMYCIN 1,000 MG/NS 250 ML IV SCH ×2 (17:00)
--- NOTE | 2017-09-20 17:10 | MB ---
cc: ED SORTO MD DATE OF CONSULTATION 09/20/[address] Marie. REASON FOR CONSULTATION Positive blood cultures. HIV patient. HISTORY OF PRESENT ILLNESS This is a 66-year-old white male who was admitted to the hospital on 09/17/17. The patient presented to the emergency department with cough, shortness of breath and fever. He was noted to have elevated temperature of 103 degrees when he came into the emergency department. Chest x-ray Showed no acute infiltrates. A CT scan of the chest showed scattered patchy airspace disease. The patient had normal white blood cell count. His blood cultures taken on admission had Corynebacterium not JK in the blood cultures. All four bottles are positive for pleomorphic gram-positive bacteria. The patient tells me that he feels fine. His sputum culture was negative and had normal haroldo. The temperature rapidly improved and he has been afebrile for the past 48 hours. He was treated with ceftriaxone and azithromycin. The patient was doing well today and was about to be discharged. However, the blood culture came back showing the positive bacteria and, therefore, this consultation is requested. The patient tells me that he feels fine. He denies nausea, vomiting, chills, shortness of breath. He has chronic tracheostomy and has had treatment for squamous cell cancer of the throat. He has an Dpkzgl-D-Zjui in the left chest which has been in place for about a year. He also has HIV disease and has been managed by an outpatient ID physician. He is not a good historian in terms of knowing his details of the HIV. He reportedly is compliant with anti-retroviral medications. He cannot remember the name of the medicines which he is taking however. PAST MEDICAL HISTORY 1. HIV disease, 2. History of throat cancer treated with radiation therapy 3. Tracheostomy 4. Port placement 5. Hernia surgery. ALLERGIES MORPHINE OXYCODONE MEDICATIONS 1. Azithromycin, 2. Ceftriaxone, 3. Tylenol p.r.n. FAMILY HISTORY Noncontributory. REVIEW OF SYSTEMS GENERAL: Seen again for fever on admission. Denies chills. HEENT: Denies visual blurring or diplopia. Denies throat pain. Admits to difficulty swallowing. Denies neck pain. CARDIOVASCULAR: Denies palpitation or chest pain. RESPIRATORY: Denies cough or shortness of breath GASTROINTESTINAL: Denies nausea, vomiting, abdominal pain or diarrhea. GENITOURINARY: Denies urgency, frequency or dysuria. HEMATOPOIETIC: Denies easy bruising or bleeding. MUSCULOSKELETAL: Denies muscle aches or pains. ENDOCRINE: Denies polyuria or polydipsia. INTEGUMENTARY: Denies skin rash or itching. NEUROLOGIC: Denies problems with coordination PSYCHIATRIC: Denies depression or mood changes. PHYSICAL EXAMINATION GENERAL: This is a slender well-developed male in no acute distress. He is awake, alert and oriented. VITAL SIGNS: Temperature 97.4. BP 146/91, respirations 18, heart rate 96. HEENT: Head is atraumatic. Extraocular movements grossly intact, pupils reactive to light without icterus. Oropharynx moist mucosa without lesions. NECK: Supple without adenopathy. LUNGS: Clear breath sounds CHEST: Iipdyg-Q-Pesm at the left chest without tenderness or erythema. HEART: Regular S1-S2 without murmurs, rubs or gallops. ABDOMEN: Bowel sounds present, soft, nontender. RECTAL: Not performed. EXTREMITIES: No clubbing, cyanosis or edema. SKIN: Hyperpigmented changes of the skin at the face and arms. No diffuse rash. NEUROLOGIC: Nonfocal. PSYCHIATRIC: Patient calm and cooperative although anxious. LABORATORY DATA WBC 7.3, platelets 96, hemoglobin 10.3, creatinine 0.63, BUN 12, sodium 138. Liver function tests normal. IMPRESSION Positive blood cultures with Corynebacterium not JK in all four bottles collected on 09/17 at which time the patient had fever. The patient has an Htcdaq-M-Rnxq and is immunosuppressed and therefore this could be significant bacteremia. RECOMMENDATIONS 1. Begin treatment for the Corynebacterium with vancomycin 2. Repeat the blood cultures today and follow up on the blood cultures to determine if there is still positive bacteria and if it is still positive we might to consider removing his Cmrxvb-F-Ozsz. The patient is expressing his desired to leave the hospital to go to an appointment in [place] at the [facility] which he states he has tomorrow. He also mentions issues with his license which he has just gotten reinstated and he has be present for classes on the weekend in order to keep his reinstatement of his driving license. Because of that, he appears very anxious and would like to be discharged from the hospital. I explained very sternly to the patient that he needs to stay in the hospital since I have to put him on IV antibiotics to treat this and wait for the blood cultures to come back to determine the plans going forward. The blood cultures may take 72 hours to finalize. The patient appears to be very adamant about leaving the hospital and he tells me that he "got to go". I will however order the antibiotics before treatment. Thank you for this consultation. Ed Sorto MD FD/ /3:49 PM /4:44 PM
--- NOTE | 2017-09-20 19:15 | HHI.PR ---
Subjective Remarks 66 YOAA MAle with Ca throat, s/p radiation,trach, COPD,HIV dis Feels better Wants to take po food Seen by ID Insists he has to leave Objective Vital Signs Vital Signs Date Time Temp Pulse Resp B/P (MAP) Pulse Ox O2 Delivery O2 Flow Rate FiO2 09/20/17 09:00 97 Room Air 09/20/17 04:00 96 09/20/17 04:00 97.4 70 18 146/91 (109) 92 09/20/17 00:00 75 09/20/17 00:00 98.3 71 18 144/90 (108) 94 09/19/17 20:00 97.3 72 18 160/92 (114) 95 09/19/17 20:00 71 09/19/17 20:00 Room Air I/O 09/19/17 09/19/17 09/19/17 09/20/17 09/20/17 09/20/17 07:00 15:00 23:00 07:00 15:00 23:00 Intake Total 970 ml 0 ml Output Total 400 ml 375 ml 525 ml 300 ml Balance -400 ml -375 ml 445 ml -300 ml Intake Oral 0 ml IV Total 350 ml Tube Feeding 400 ml Other 220 ml Output Urine Total 400 ml 375 ml 525 ml 300 ml # Voids 1 # Bowel Movements 0 4 Result Diagram: 09/18/17 1204 09/19/17 1521 Objective Remarks GENERAL: MBMN male,NAD SKIN: Warm and dry. HEAD: Normocephalic. EYES: No scleral icterus. No injection or drainage. NECK: Supple, trachea midline. No JVD or lymphadenopathy. Has trach, radiation changes in neck CARDIOVASCULAR: Regular rate and rhythm without murmurs, gallops, or rubs. RESPIRATORY: Breath sounds equal bilaterally. No accessory muscle use. GASTROINTESTINAL: Abdomen soft, non-tender, nondistended. has PEG tube MUSCULOSKELETAL: No cyanosis, or edema. BACK: Nontender without obvious deformity. No CVA tenderness. A/P Assessment and Plan Pneumonia COPD HIV Positive S/P Trach Ca throat, s/p radiation Dysphagia PLAN: Cont Abx Aerosol nebs SQ Lovenox TF Abx per ID Will FU in office Blair Corral MD Sep 20, 2017 19:15
== END 2017-09-20 16:39 | disposition left against medical advice (07) | DRG 975 ==
LOC: NEPE 17:50 → NEDA 22:36 → N04A 09-18 02:06
PROVIDERS: ADMIT Hospitalist; ATTEND Hospitalist
DX: B20 Human immunodeficiency virus [HIV] disease (principal); A41.89 Other specified sepsis; J44.0 Chronic obstructive pulmonary disease with (acute) lower respiratory infection; J18.9 Pneumonia, unspecified organism; E87.1 Hypo-osmolality and hyponatremia; Z93.0 Tracheostomy status; R13.10 Dysphagia, unspecified; E83.42 Hypomagnesemia; I45.9 Conduction disorder, unspecified; R73.9 Hyperglycemia, unspecified; I10 Essential (primary) hypertension; M19.90 Unspecified osteoarthritis, unspecified site; Z85.819 Personal history of malignant neoplasm of unspecified site of lip, oral cavity, and pharynx; Z88.5 Allergy status to narcotic agent; Z92.21 Personal history of antineoplastic chemotherapy; Z92.3 Personal history of irradiation; Z93.1 Gastrostomy status
CPT/HCPCS: 71010; 71275; 80048; 80053; 81001; 83036; 83605; 83735; 84100; 84484; 85025; 85610; 85730; 87040; 87070; 87077; 87205; 87449; 87804; 93005; 93306; 94640; 94664; 96361; 96365; 96366; 96367; J0456; J0696; J2543; J3475; J7030; J7050; Q9967

== ENCOUNTER → 2017-10-17 | Day surgery (SDC) | payer OTHER ==
[~2017-10-17] VITALS: Ht 176.5 cm; Wt 58.0 kg
[~2017-10-17] MED LIST changes: +ABAC1TAB3 PO; +BACITRACIN TOP OINT 15 GM TUBE ONE; +BUPIVACAINE/EPINEPHRINE 0.5% PF 10 ML VIAL ONE; +CHLORHEXIDINE GLUCONATE 2 % 1 PACK (2 CLOTHS) TOPICAL PRN; +DO NOT ADM ANY ANTICOAGULANT DRUGS PRN; +INTE200T2 PO; +LACTATED RINGER'S 1000 ML IV PRN; -LEVA750T PO; +LIDOCAINE 1%/EPINEPHrine 1:100,000 SOLN 20 ML VIAL ONE; +LIDOCAINE HCL 1% PF 5 ML SYRINGE OTHER ONE; +METOPROLOL TARTRATE 25 MG TAB PO PRN; +ONDANSETRON HCL 4 MG/2 ML VIAL IV ONE; +ONDANSETRON HCL 4 MG/2 ML VIAL IV PRN; +POVIDONE IODINE 5% (ANTISEPSIS KIT) 4 APPLICATIONS EACH NARE PRN; +PROPOFOL 200 MG/20 ML AMP IV ONE; +SODIUM CHLORID 0.9% 500 ML IV PRN; +ePHEDrine/NS 25 MG/5 ML SYRINGE IV ONE
--- NOTE | 2017-10-17 08:01 | PD.HP.UP ---
H&P Update Note The Pre-Admit History and Physical Examination regarding the above named patient was reviewed (including, but not limited to, vital signs, heart, lungs, co-morbid conditions), and upon re-examination it is noted that: the patient's condition has not significantly changed since the last examination. Doug Subramanian MD Oct 17, 2017 08:01
[2017-10-17 08:17] LABS: AUTOMATED NEUTROPHIL # 1.1 TH/MM3 (1.8-7.7); BASOPHIL % 0.7 % (0.0-2.0); EOSINOPHIL # 0.4 TH/MM3 (0-0.4); EOSINOPHIL % 12.3 % (0.0-4.0); HEMATOCRIT 32.5 % (39.0-51.0); HEMOGLOBIN 10.3 GM/DL (13.0-17.0); LYMPHOCYTE # 1.7 TH/MM3 (1.0-4.8); MEAN CELL VOLUME 83.3 FL (80.0-100.0); MEAN CORPUSCULAR HEMOGLOBIN 26.3 PG (27.0-34.0); MEAN CORPUSCULAR HGB CONC 31.6 % (32.0-36.0); MEAN PLATELET VOLUME 9.4 FL (7.0-11.0); MONOCYTE # 0.4 TH/MM3 (0-0.9); PLATELET COUNT 117 TH/MM3 (150-450); RED CELL DISTRIBUTION WIDTH 16.9 % (11.6-17.2); WHITE BLOOD COUNT 3.6 TH/MM3 (4.0-11.0)
[2017-10-17 13:15] VITALS: BP 133/87; PULSE 84; RESP 20; TEMP 97; O2SAT 92
--- NOTE | 2017-10-17 14:18 | EKG ---
Date Performed: 10/17/2017 Time Performed: 07:41:17 PTAGE: 66 years EKG: SINUS BRADYCARDIA BORDERLINE ECG PREVIOUS TRACING : 09/19/2017 13.44 DOCTOR: Eric Saini Interpretating Date/Time 10/17/2017 14:17:11
--- NOTE | 2017-10-19 06:51 | MP ---
cc: LUIS GOODWIN M.D. DATE OF SURGERY October 17, 2017 PREOPERATIVE DIAGNOSIS 1. History of colon polyps large anal lesion/ulcer. 2. History of HIV disease. PROCEDURE 1. Colonoscopy to cecum 2. Exam under anesthesia and excision of large anal lesion/ulcer. POSTOPERATIVE DIAGNOSIS 1. Normal cecum and ileocecal valve. 2. No colonic polyps. 3. Diverticulosis rectosigmoid 4. Large prolapsing hemorrhoid with ulceration. SURGEON Dr. Goodwin PROCEDURE The patient was placed in the left lateral decubitus position. After adequate anesthesia sedation, rectal exam confirmed the emptiness the rectal vault. Olympus colonoscope was then introduced into the rectum and advanced easily under direct vision through the proximal colon until the cecum was identified. The ileocecal valve was normal. There are no vascular abnormalities noted in the cecum. Colonoscope was then gradually withdrawn visualizing the mucosal surface throughout the distal colon. No inflammatory changes were seen. No polyps were noted. Some diverticulosis was seen in the rectosigmoid. Next, the buttocks were taped apart, prepped with Betadine solution and draped in usual sterile fashion. The anal canal was anesthetized by injection of 1% Xylocaine/0.5% Marcaine with epinephrine. An anal half-biswas retractor was inserted and examination revealed a rather ugly ulcerated lesion in the right posterior position with some prolapse of the internal hemorrhoid. There were several small lesions along the anal verge. The rectal vault appeared pretty much unremarkable. First, an elliptical incision was made over the large unusual hemorrhoidal mass taking it off the internal and external sphincter, dissecting up toward the dentate line and then terminating the dissection with electrocautery. The defect appeared clean and the base of it was fairly healthy although the muscle appeared quite atrophic. The wound was left open. Hemostasis achieved with electrocautery. Two other lesions, possibly condylomatous, were treated with electrocautery for destruction. The patient tolerated the procedure quite well and was brought to recovery room in stable condition. Sponge and needle counts were correct at the end of the procedure. INDICATION And needle and Wander fernandez recent a copy over to my office. Thank you MD EEBR Goff/LUIS ENRIQUE :01 AM /6:19 AM
== END | disposition home or self-care (01) ==
LOC: HSDC 07:13
PROVIDERS: ATTEND Colon & Rectal Surgery
DX: K62.6 Ulcer of anus and rectum (principal); K64.8 Other hemorrhoids; K57.30 Diverticulosis of large intestine without perforation or abscess without bleeding; Z86.010 Personal history of colon polyps; Z21 Asymptomatic human immunodeficiency virus [HIV] infection status; Z01.810 Encounter for preprocedural cardiovascular examination
CPT/HCPCS: 00902; 45378; 46922; 85025; 88304; 93005; J2405

== ENCOUNTER 2017-11-28 04:39 | Emergency (ER) | payer OTHER, MEDICAID ==
[~2017-11-28] VITALS: Ht 175.3 cm; Wt 60.0 kg
[2017-11-28] VITALS (7 sets, daily range): BP systolic 148–158; BP diastolic 75–92; PULSE 105–106; RESP 22–28; TEMP 98.6–102.2; O2SAT 93–95
[~2017-11-28 04:39] MED LIST changes: -BACITRACIN TOP OINT 15 GM TUBE ONE; -BUPIVACAINE/EPINEPHRINE 0.5% PF 10 ML VIAL ONE; -CHLORHEXIDINE GLUCONATE 2 % 1 PACK (2 CLOTHS) TOPICAL PRN; -DO NOT ADM ANY ANTICOAGULANT DRUGS PRN; -LACTATED RINGER'S 1000 ML IV PRN; -LIDOCAINE 1%/EPINEPHrine 1:100,000 SOLN 20 ML VIAL ONE; -LIDOCAINE HCL 1% PF 5 ML SYRINGE OTHER ONE; -METOPROLOL TARTRATE 25 MG TAB PO PRN; -ONDANSETRON HCL 4 MG/2 ML VIAL IV ONE; -ONDANSETRON HCL 4 MG/2 ML VIAL IV PRN; -POVIDONE IODINE 5% (ANTISEPSIS KIT) 4 APPLICATIONS EACH NARE PRN; -PROPOFOL 200 MG/20 ML AMP IV ONE; -SODIUM CHLORID 0.9% 500 ML IV PRN; -ePHEDrine/NS 25 MG/5 ML SYRINGE IV ONE
--- NOTE | 2017-11-28 05:05 | PD ---
HPI Chief Complaint: Respiratory Symptoms Time Seen by Provider: 04:53 Travel History International Travel<30 days: No Contact w/Intl Traveler<30days: No Traveled to known affect area: No History of Present Illness HPI The patient is a 67 year old male who presents to the [facility] emergency department with a history of history of cough and congestion that began suddenly around 6 pm yesterday. His cough is productive of yellow sputum. He has central upper chest pressure associated with this and shortness of breath that began when he arrived in the emergency department. The patient's history is complicated by having a throat cancer diagnosed in 2016 or 2017 status post tracheostomy and G-tube placement. The patient reports that he underwent chemotherapy and radiation therapy which has been completed. He reports that he has been keeping the trach capped. He reports that he plans to have the tracheostomy tube removed later today. He did not get an influenza vaccination this season. He does have a history of using nebulizer treatments in the past, however he has not used any recently. On review of systems, the patient denies having any known recent fevers, abdominal pain, vomiting, diarrhea, urinary symptoms, or neurologic symptoms. The patient reports that he does have some clear nasal discharge associated with this. 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 The patient has a history of HIV and reports that he is compliant with his retroviral medications. Hx Anticoagulant Therapy: No Arthritis: Yes Asthma: No Autoimmune Disease: Yes Blood Disorders: No Heart Rhythm Problems: No Cancer: Yes (SQUAMOUS CELL THROAT CA) Cardiovascular Problems: No High Cholesterol: Yes Chemotherapy: Yes Chest Pain: No Congestive Heart Failure: No COPD: No Cerebrovascular Accident: No Diabetes: No Diminished Hearing: No Endocrine: No Gastrointestinal Disorders: Yes (G-TUBE, RECTAL MASS) GERD: No Genitourinary: No Hepatitis: No Hiatal Hernia: Yes Hypertension: Yes Immune Disorder: Yes (HIV/AIDS) Musculoskeletal: No Neurologic: No Psychiatric: No Reproductive: No Respiratory: Yes (Throat CA with trach > 1 yr) Immunizations Current: Yes Migraines: No Myocardial Infarction: No Radiation Therapy: Yes Seizures: No Sleep Apnea: No Thyroid Disease: No Ulcer: No Tetanus Vaccination: > 5 Years Influenza Vaccination: Yes Past Surgical History Narrative Surgical The patient's past surgical history is significant for [id number] placement, tracheostomy, feeding tube placement, hernia repair. Abdominal Surgery: Yes (G-TUBE, HERNIA REPAIR) AICD: No Body Medical Devices: LEFT CHEST PORT Cardiac Surgery: No Ear Surgery: No Endocrine Surgery: No Eye Surgery: No Genitourinary Surgery: No Gynecologic Surgery: No Insulin Pump: No Joint Replacement: No Neurologic Surgery: No Oral Surgery: No Pacemaker: No Thoracic Surgery: No Other Surgery: Yes (Trach placed ) Social History Alcohol Use: No Tobacco Use: No Substance Use: No Allergies-Medications (Allergen,Severity, Reaction): Coded Allergies: morphine (Unverified Allergy, Severe, Seizures, 11/28/17) WHEN TAKEN IN COMBINATION WITH OXYCODONE oxycodone (Unverified Allergy, Severe, Seizures, 11/28/17) WHEN TAKEN IN COMBINATION WITH MORPHINE Reported Meds & Prescriptions Reported Meds & Active Scripts Active Levofloxacin Liq (Levofloxacin) 25 Mg/Ml Soln 750 Mg G-TUBE Q24H 7 Days Review of Systems Except as stated in HPI: all other systems reviewed are Neg General / Constitutional: No: Fever Eyes: No: Visual changes HENT: Positive: Rhinorrhea, Congestion, No: Headaches Cardiovascular: Positive: Chest Pain or Discomfort Respiratory: Positive: Cough, Shortness of Breath Gastrointestinal: No: Nausea, Vomiting, Diarrhea, Abdominal Pain Genitourinary: No: Dysuria Musculoskeletal: No: Pain Skin: No Rash Neurologic: No: Weakness Psychiatric: No: Depression Endocrine: No: Polydipsia Hematologic/Lymphatic: No: Easy Bruising Physical Exam Narrative General: The patient is a well-developed well-nourished male in no acute distress. Head and Neck exam: Head is normocephalic atraumatic. Eyes: EOMI, pupils are equal round and reactive to light. Nose: Midline septum with pink mucous membranes Mouth: Dentition unremarkable. Moist mucus membranes. Posterior oropharynx is not erythematous. No tonsillar hypertrophy. Uvula midline. Airway patent. Neck: No palpable lymphadenopathy. No nuchal rigidity. No thyromegaly. The patient has a Tracheostomy tube in place. Cardiovascular: Sinus tachycardia in the low 100 without murmurs, gallops, or rubs. No pulse deficit to the extremities on simultaneous auscultation and palpation of his radial artery. The patient has an Mqjvyz-i-Nzdh placement left upper chest that appears to be in good repair. Without any signs of overlying erythema or edema. Lungs: Scattered rhonchi audible with frequent coughing. Upper airway sounds are being transmitted. No crackles. The patient has soft expiratory wheezes audible. Abdomen: Soft, without tenderness to palpation in all 4 quadrants of the abdomen. No guarding, rebound, or rigidity. Normal bowel sounds are audible. No tenderness on palpation of McBurney's point. Negative Terrazas's sign. The patient has a feeding tube in place in the left upper quadrant of the abdomen appears to be in good repair without any signs of infection. Extremities: No clubbing, cyanosis, or edema. 2+ pulses in all 4 extremities. No calf tenderness on palpation. Negative Homans sign Back: No spinous process tenderness to palpation. No costovertebral angle tenderness to palpation. Neurologic Exam: Grossly nonfocal. Skin Exam: No rash noted. Intact skin that is warm and dry. Data Data Last Documented VS Vital Signs Date Time Temp Pulse Resp B/P (MAP) Pulse Ox O2 Delivery O2 Flow Rate FiO2 11/28/17 07:08 94 Trach Collar 6.00 40 11/28/17 06:41 102.2 11/28/17 06:02 105 22 Orders Orders Complete Blood Count With Diff (11/28/17 05:09) Comprehensive Metabolic Panel (11/28/17 05:09) B-Type Natriuretic Peptide (11/28/17 05:09) Magnesium (Mg) (11/28/17 05:09) Ckmb (Isoenzyme) Profile (11/28/17 05:09) Troponin I (11/28/17 05:09) Influenzae A/B Antigen (11/28/17 05:09) Iv Access Insert/Monitor (11/28/17 05:09) Electrocardiogram (11/28/17 05:09) Ecg Monitoring (11/28/17 05:09) Oximetry (11/28/17 05:09) Oxygen Administration (11/28/17 05:09) Chest, Single Ap (11/28/17 05:09) Sodium Chloride 0.9% Flush (Ns Flush) (11/28/17 05:15) Albuterol-Ipratropium Neb (Duoneb Neb) (11/28/17 05:15) Blood Culture (11/28/17 05:20) Lactic Acid Sepsis Protocol (11/28/17 05:20) Heparin Central Flush (Heparin Central F (11/28/17 06:00) Ceftriaxone Inj (Rocephin Inj) (11/28/17 06:30) Azithromycin Inj (Zithromax Inj) (11/28/17 06:30) CKMB (11/28/17 06:00) CKMB% (11/28/17 06:00) Acetaminophen 325 Mg/10 Ml Liq (Tylenol (11/28/17 07:00) Admit Order (Ed Use Only) (11/28/17 07:13) Sodium Chlor 0.9% 1000 Ml Inj (Ns 1000 M (11/28/17 07:15) Labs Laboratory Tests Test 11/28/17 06:00 White Blood Count 7.8 TH/MM3 Red Blood Count 4.14 MIL/MM3 Hemoglobin 11.4 GM/DL Hematocrit 35.4 % Mean Corpuscular Volume 85.7 FL Mean Corpuscular Hemoglobin 27.7 PG Mean Corpuscular Hemoglobin Concent 32.3 % Red Cell Distribution Width 13.1 % Platelet Count 87 TH/MM3 Mean Platelet Volume 10.4 FL Neutrophils (%) (Auto) 71.6 % Lymphocytes (%) (Auto) 19.6 % Monocytes (%) (Auto) 5.5 % Eosinophils (%) (Auto) 2.9 % Basophils (%) (Auto) 0.4 % Neutrophils # (Auto) 5.6 TH/MM3 Lymphocytes # (Auto) 1.5 TH/MM3 Monocytes # (Auto) 0.4 TH/MM3 Eosinophils # (Auto) 0.2 TH/MM3 Basophils # (Auto) 0.0 TH/MM3 CBC Comment AUTO DIFF Differential Comment AUTO DIFF CONFIRMED Platelet Estimate LOW Platelet Morphology Comment NORMAL Blood Urea Nitrogen 22 MG/DL Creatinine 0.72 MG/DL Random Glucose 119 MG/DL Total Protein 8.1 GM/DL Albumin 3.7 GM/DL Calcium Level 8.4 MG/DL Magnesium Level 1.5 MG/DL Alkaline Phosphatase 79 U/L Aspartate Amino Transf (AST/SGOT) 53 U/L Alanine Aminotransferase (ALT/SGPT) 36 U/L Total Bilirubin 0.4 MG/DL Sodium Level 131 MEQ/L Potassium Level 4.5 MEQ/L Chloride Level 99 MEQ/L Carbon Dioxide Level 24.9 MEQ/L Anion Gap 7 MEQ/L Estimat Glomerular Filtration Rate 133 ML/MIN Lactic Acid Level 1.1 mmol/L Total Creatine Kinase 255 U/L Creatine Kinase MB 3.5 NG/ML Troponin I LESS THAN 0.02 NG/ML B-Type Natriuretic Peptide 7 PG/ML MDM Medical Decision Making Medical Screen Exam Complete: Yes Emergency Medical Condition: Yes Medical Record Reviewed: Yes Interpretation(s) Last Impressions Chest X-Ray 11/28/17 0509 Signed Impressions: Service Date/Time: Tuesday, November 28, 2017 06:13 - CONCLUSION: Mild left lower lobe opacity could represent atelectasis or airspace consolidation. Phani Encarnacion MD Differential Diagnosis Influenza, versus pneumonia, versus bronchitis, versus mucous plug, versus reactive airway exacerbation Narrative Course During the course of the patients emergency department visit, the patients history, examination, and differential diagnosis were reviewed with the patient. The patient was placed on a lunchroom monitor with oximetry and frequent blood pressure monitoring. The patient had IV access obtained and blood work sent for analysis. The patient had an EKG done on arrival that shows a sinus tachycardia with a short CA interval, no acute ST segment elevation. Heart rate is 123, QRS duration is 72 ms, QTC [address] segment elevation. The patient was initially provided .a DuoNeb 2. I requested that respiratory therapy removed the patient's cap in order to have the tracheostomy tube suctioned. The patients laboratory studies were reviewed and remarkable for A white count of 7.8, hemoglobin 11.4, platelets 87 with 71.6 neutrophils, CMP is remarkable for sodium of 131, BUN 22, glucose 119, calcium 8.4, AST 53, cardiac enzymes within normal limits, BNP is 7, lactic acid is 1.1. Flu testing is negative. Radiology studies were reviewed and remarkable for a chest x-ray that shows a left lower lobe infiltrate. The patient required placement on supplemental oxygen at 28% of humidified air by respiratory therapy to maintain his O2 saturations above 90%. The patient's O2 sat was consistently around 92%. The patient became febrile with a temperature of 102, therefore the patient was given Tylenol per his feeding tube. The patient's results were discussed with the patient, including the plan of care. I explained that further testing and/ or monitoring is indicated based on the patient's history, examination, and/ or laboratory findings. Therefore, I recommended admission for additional evaluation. The patient expressed understanding and was agreeable with this plan. The patient was admitted to the hospital in guarded condition and sent to a bed under the care of Dr. Marks. Physician Communication Physician Communication The patient's case including history, pertinent physical examination findings, and laboratory studies were discussed with Dr. Marks. It was agreed that the patient would be admitted to the [facility] service. Diagnosis Primary Impression: Community acquired pneumonia Qualified Codes: J18.1 - Lobar pneumonia, unspecified organism Additional Impression: HIV (human immunodeficiency virus infection) Admitting Information Admitting Physician Requests: Admit Scripts Levofloxacin Liq (Levofloxacin Liq) 25 Mg/Ml Soln 750 MG G-TUBE Q24H for Infection for 7 Days, #480 ML 0 Refills Prov: Missy Marks DO 11/28/17 Arlette Razo MD Nov 28, 2017 05:05
[2017-11-28] MEDS ORDERED: SODIUM CHLORIDE 0.9% FLUSH 10 ML FLUSH IVF PRN (05:15)
[2017-11-28] MEDS: RESP: ALBUTEROL 2.5 MG/IPRATROPIUM 0.5 MG NEB (SCH) INH (05:24)
[2017-11-28 06:08] LABS: AUTOMATED NEUTROPHIL # 5.6 TH/MM3 (1.8-7.7); BASOPHIL % 0.4 % (0.0-2.0); EOSINOPHIL # 0.2 TH/MM3 (0-0.4); EOSINOPHIL % 2.9 % (0.0-4.0); HEMATOCRIT 35.4 % (39.0-51.0); HEMOGLOBIN 11.4 GM/DL (13.0-17.0); LYMPH % 19.6 % (9.0-44.0); LYMPHOCYTE # 1.5 TH/MM3 (1.0-4.8); MEAN CELL VOLUME 85.7 FL (80.0-100.0); MEAN CORPUSCULAR HEMOGLOBIN 27.7 PG (27.0-34.0); MEAN CORPUSCULAR HGB CONC 32.3 % (32.0-36.0); MEAN PLATELET VOLUME 10.4 FL (7.0-11.0); MONO % 5.5 % (0.0-8.0); MONOCYTE # 0.4 TH/MM3 (0-0.9); NEUT % 71.6 % (16.0-70.0); PLATELET COUNT 87 TH/MM3 (150-450); RED BLOOD COUNT 4.14 MIL/MM3 (4.50-5.90); RED CELL DISTRIBUTION WIDTH 13.1 % (11.6-17.2); WHITE BLOOD COUNT 7.8 TH/MM3 (4.0-11.0)
--- NOTE | 2017-11-28 06:28 | RADRPT ---
EXAM DATE/TIME: 11/28/2017 06:13 [place] COMPARISON: CHEST SINGLE AP, September 17, 2017, 18:12. INDICATIONS : Short of breath. MEDICAL HISTORY : Hypertension. Arthritis SURGICAL HISTORY : Trach. [id number]-[id number] ENCOUNTER: Initial ACUITY: 1 day PAIN SCORE: 0/10 LOCATION: Bilateral chest FINDINGS: Portable AP view of the chest demonstrates a normal-sized cardiac silhouette. Left chest wall Infuse- a-Port is present. Tracheostomy is in place. There is mild left lower lobe airspace opacity. No pleur al effusion or pneumothorax is identified. EKG lines overlie the patient. Bones and soft tissues demo nstrate no acute finding. CONCLUSION: Mild left lower lobe opacity could represent atelectasis or airspace consolidation. Phani Encarnacion MD on November 28, 2017 at 6:26 Board Certified Radiologist. This report was verified electronically.
[2017-11-28] MEDS ORDERED: cefTRIAXone INJ 1,000 MG in SODIUM CHLORIDE 0.9% INJ 100 ML IV ONE (06:30)
[2017-11-28] MEDS ORDERED: AZITHROMYCIN INJ 500 MG in SODIUM CHLOR 0.9% 250 ML INJ 250 ML IV ONE (06:30)
[2017-11-28 06:37] LABS: ALBUMIN 3.7 GM/DL (3.4-5.0); ALKALINE PHOSPHATASE 79 U/L (45-117); ALT (GPT) 36 U/L (12-78); AST (GOT) 53 U/L (15-37); BICARBONATE 24.9 MEQ/L (21.0-32.0); BLOOD UREA NITROGEN 22 MG/DL (7-18); CALCIUM 8.4 MG/DL (8.5-10.1); CHLORIDE 99 MEQ/L (98-107); CREATININE 0.72 MG/DL (0.60-1.30); GLOMERULAR FILTRATION RATE 133 ML/MIN (>89); GLUCOSE,RANDOM 119 MG/DL (74-106); MAGNESIUM 1.5 MG/DL (1.5-2.5); SODIUM (NA) 131 MEQ/L (136-145); TOTAL BILIRUBIN ADULT 0.4 MG/DL (0.2-1.0); TOTAL PROTEIN 8.1 GM/DL (6.4-8.2); TROPONIN I LESS THAN 0.02 NG/ML (0.02-0.05)
[2017-11-28] MEDS ORDERED: ACETAMINOPHEN 325 MG/10.15 ML UDC PO ONE (07:00)
[2017-11-28] MEDS ORDERED: SODIUM CHLOR 0.9% 1000 ML INJ 1,000 ML IV ONE (07:15)
[2017-11-28] MEDS ORDERED: SODIUM CHLOR 0.9% 1000 ML INJ 1,000 ML IV SCH (07:35)
--- NOTE | 2017-11-28 07:35 | HHI.HP ---
HPI Service [facility] Primary Care Physician Unknown Admission Diagnosis Pneumonia Diagnoses: Chief Complaint: Cough, congestion. Travel History International Travel<30 Days: No Contact w/Intl Traveler <30 Da: No Traveled to Known Affected Are: No Sepsis Criteria SIRS Criteria (2 or more): Temp > 100.9 or < 96.8, Heart rate over 90, RR > 20 or PaCO2 < 32 Sepsis Criteria (SIRS+source): Infect source susp/known History of Present Illness Mr. Patten is a 67-year-old male with a history of HIV, throat cancer s/p tracheostomy and G-tube placement who presents to the emergency department due to cough and congestion that started around 6 PM on 11/27/2017. He reports some central upper chest pressure as well as shortness of breath. He has undergone chemo and radiation therapy with regards to his throat cancer and he was scheduled to have his tracheostomy removed sometime later today. Patient denies any fever at home, abdominal pain, nausea, vomiting. No changes in bowel or bladder habits. Review of Systems Except as stated in HPI: all other systems reviewed are Neg Past Family Social History Past Medical History Squamous cell throat cancer Hyperlipidemia HIV/AIDS Past Surgical History Hernia repair, G-tube placement, left chest port placement Allergies: Coded Allergies: morphine (Unverified Allergy, Severe, Seizures, 11/28/17) WHEN TAKEN IN COMBINATION WITH OXYCODONE oxycodone (Unverified Allergy, Severe, Seizures, 11/28/17) WHEN TAKEN IN COMBINATION WITH MORPHINE Family History Family history of hypertension. Social History Patient denies using alcohol, tobacco, illicit drugs Physical Exam Vital Signs Vital Signs Date Time Temp Pulse Resp B/P (MAP) Pulse Ox O2 Delivery O2 Flow Rate FiO2 11/28/17 06:41 102.2 11/28/17 06:04 158/92 (114) 11/28/17 06:02 95 Trach Collar 6.00 11/28/17 06:02 105 22 11/28/17 05:51 95 Trach Collar 6.00 28 11/28/17 04:42 98.6 106 28 149/90 (109) 93 Room Air Physical Exam GENERAL: This is a well-nourished, well-developed patient, in no apparent distress. SKIN: No rashes, ecchymoses or lesions. Warm and dry. HEAD: Atraumatic. Normocephalic. No temporal or scalp tenderness. EYES: Pupils equal round and reactive. No injection or drainage. ENT: Nose without bleeding, purulent drainage or septal hematoma. Airway patent. NECK: s/p tracheostomy. No lymphadenopathy. Supple, nontender, no meningeal signs. CARDIOVASCULAR: Regular rate and rhythm without murmurs, gallops, or rubs. No JVD. RESPIRATORY: Clear to auscultation. Breath sounds equal bilaterally. No wheezes , rales, or rhonchi. GASTROINTESTINAL: Abdomen soft, non-tender, nondistended. No guarding. MUSCULOSKELETAL: Extremities without clubbing, cyanosis, or edema. NEUROLOGICAL: Awake and alert. Unable to voice words. Laboratory Laboratory Tests Test 11/28/17 06:00 White Blood Count 7.8 Red Blood Count 4.14 Hemoglobin 11.4 Hematocrit 35.4 Mean Corpuscular Volume 85.7 Mean Corpuscular Hemoglobin 27.7 Mean Corpuscular Hemoglobin Concent 32.3 Red Cell Distribution Width 13.1 Platelet Count 87 Mean Platelet Volume 10.4 Neutrophils (%) (Auto) 71.6 Lymphocytes (%) (Auto) 19.6 Monocytes (%) (Auto) 5.5 Eosinophils (%) (Auto) 2.9 Basophils (%) (Auto) 0.4 Neutrophils # (Auto) 5.6 Lymphocytes # (Auto) 1.5 Monocytes # (Auto) 0.4 Eosinophils # (Auto) 0.2 Basophils # (Auto) 0.0 CBC Comment AUTO DIFF Differential Comment AUTO DIFF CONFIRMED Platelet Estimate LOW Platelet Morphology Comment NORMAL Blood Urea Nitrogen 22 Creatinine 0.72 Random Glucose 119 Total Protein 8.1 Albumin 3.7 Calcium Level 8.4 Magnesium Level 1.5 Alkaline Phosphatase 79 Aspartate Amino Transf (AST/SGOT) 53 Alanine Aminotransferase (ALT/SGPT) 36 Total Bilirubin 0.4 Sodium Level 131 Potassium Level 4.5 Chloride Level 99 Carbon Dioxide Level 24.9 Anion Gap 7 Estimat Glomerular Filtration Rate 133 Lactic Acid Level 1.1 Total Creatine Kinase 255 Creatine Kinase MB 3.5 Troponin I LESS THAN 0.02 B-Type Natriuretic Peptide 7 Date/Time Source Procedure Growth Status 11/28/17 06:00 Nasal Aspirate Influenza Types A,B Antigen (KARMEN) - Final NEGATIVE FOR FLU A AND B ANTIGEN.... Complete Result Diagram: 11/28/17 0600 11/28/17 0600 Imaging Last Impressions Chest X-Ray 11/28/17 0509 Signed Impressions: Service Date/Time: Tuesday, November 28, 2017 06:13 - CONCLUSION: Mild left lower lobe opacity could represent atelectasis or airspace consolidation. MD Kinsey Tanner VTE Risk Assessment Kinsey VTE Risk Assessment: Mod/High Risk (score >= 2) Harshadrini Risk Assessment Model Point Value = 1 Point Value = 2 Point Value = 3 Point Value = 5 Age 41-60 Minor surgery BMI > 25 kg/m2 Swollen legs Varicose veins or History of unexplained or recurrent spontaneous Oral contraceptives or hormone replacement Sepsis (< 1 month) Serious lung disease, including pneumonia (< 1 month) Abnormal pulmonary function Acute myocardial infarction Congestive heart failure (< 1 month) History of inflammatory bowel disease Medical patient at bed rest Age 61-74 Arthroscopic surgery Major open surgery (> 45 min) Laparoscopic surgery (> 45 min) Malignancy Confined to bed (> 72 hours) Immobilizing plaster cast Central venous access Age >= 75 History of VTE Family history of VTE Factor V Leiden Prothrombin [id number] Lupus anticoagulant Anticardiolipin antibodies Elevated serum homocysteine Heparin-induced thrombocytopenia Other congenital or acquired thrombophilia Stroke (< 1 month) Elective arthroplasty Hip, pelvis, or leg fracture Acute spinal cord injury (< 1 month) Prophylaxis Regimen Total Risk Factor Score Risk Level Prophylaxis Regimen 0-1 Low Early ambulation 2 Moderate Order ONE of the following: *Sequential Compression Device (SCD) *Heparin 5000 units SQ BID 3-4 Higher Order ONE of the following medications: *Heparin 5000 units SQ TID *Enoxaparin/Lovenox 40 mg SQ daily (WT < 150 kg, CrCl > 30 mL/min) *Enoxaparin/Lovenox 30 mg SQ daily (WT < 150 kg, CrCl > 10-29 mL/min) *Enoxaparin/Lovenox 30 mg SQ BID (WT < 150 kg, CrCl > 30 mL/min) AND/OR *Sequential Compression Device (SCD) 5 or more Highest Order ONE of the following medications: *Heparin 5000 units SQ TID (Preferred with Epidurals) *Enoxaparin/Lovenox 40 mg SQ daily (WT < 150 kg, CrCl > 30 mL/min) *Enoxaparin/Lovenox 30 mg SQ daily (WT < 150 kg, CrCl > 10-29 mL/min) *Enoxaparin/Lovenox 30 mg SQ BID (WT < 150 kg, CrCl > 30 mL/min) AND *Sequential Compression Device (SCD) Assessment and Plan Problem List: (1) Sepsis ICD Code: A41.9 - Sepsis, unspecified organism (2) Community acquired pneumonia ICD Code: J18.9 - Pneumonia, unspecified organism Status: Acute (3) HIV (human immunodeficiency virus infection) ICD Code: B20 - Human immunodeficiency virus [HIV] disease Status: Chronic Assessment and Plan Mr. Patten is a 67-year-old male with a history of HIV, throat cancer s/p tracheostomy and G-tube placement who presents to the emergency department due to cough and congestion that started around 6 PM on 11/27/2017. He reports some central upper chest pressure as well as shortness of breath. He has undergone chemo and radiation therapy with regards to his throat cancer and he was scheduled to have his tracheostomy removed sometime later today. Patient denies any fever at home, abdominal pain, nausea, vomiting. No changes in bowel or bladder habits. Sepsis (HR 106, respiration 28, pneumonia) Community-acquired pneumonia - Will start patient on Azithromycin and Ceftriaxone. - DuoNeb PRN. - Patient does not recall the name of the ENT doctor he was supposed to see today regarding removal of Trach. HIV/AIDS - Apparently he has been compliant with medications. - Could not specify medications. History of throat cancer - s/p chemo/radiation. Full code. Lovenox. Patient decided leave Against medical advice. Patient is alert, oriented x 3. I explained to the patient that without proper treatment, his condition may get worse and may cause respiratory decline which can lead to morbidity and mortality. Patient verbalized understand but still wants to go against medical advice. An Rx for PO liquid Levaquin was given. Discharge patient to home AGAINST MEDICAL ADVICE. Condition on discharge: Improved Regular Diet as tolerated Ad Siomara activity Rx written: Levaquin Liq 750mg Qday x 7 days. Follow-up with primary care physician in one week. Physician Certification 2 Midnight Certification Type: Admission for Inpatient Services Order for Inpatient Services The services are ordered in accordance with Medicare regulations or non- Medicare payer requirements, as applicable. In the case of services not specified as inpatient-only, they are appropriately provided as inpatient services in accordance with the 2-midnight benchmark. Estimated LOS (days): 2 days is the estimated time the patient will need to remain in the hospital, assuming treatment plan goals are met and no additional complications. Post-Hospital Plan: Home Missy Marks DO Nov 28, 2017 07:35
[2017-11-28] MEDS ORDERED: ACETAMINOPHEN 325 MG TAB PO PRN (07:45)
[2017-11-28] MEDS ORDERED: NALOXONE HCL 0.4 MG/ML AMP IV PUSH PRN (07:45)
[2017-11-28] MEDS ORDERED: LACTULOSE SYRUP 20 GM/30 ML CUP PO PRN (07:45)
[2017-11-28] MEDS ORDERED: SODIUM CHLORIDE 0.9% FLUSH 10 ML FLUSH IV FLUSH PRN (07:45)
[2017-11-28] MEDS ORDERED: BISACODYL 10 MG SUPP RECTAL PRN (07:45)
[2017-11-28] MEDS ORDERED: MAGNESIUM HYDROXIDE SUSP 30 ML CUP PO PRN (07:45)
[2017-11-28] MEDS ORDERED: ONDANSETRON HCL 4 MG/2 ML VIAL IVP PRN (07:45)
[2017-11-28] MEDS ORDERED: SENNOSIDES 8.6 MG TAB PO PRN (07:45)
[2017-11-28] MEDS ORDERED: LEVA750T9 PO (08:13)
[2017-11-28] MEDS ORDERED: LEVO25SO G-TUBE (08:34)
[2017-11-28] MEDS ORDERED: ENOXAPARIN SODIUM 40 MG/0.4 ML SYRINGE SQ SCH (09:00)
[2017-11-28] MEDS ORDERED: LEVOFLOXACIN ORAL SOLN 2500 MG/100 ML BOTTLE G-TUBE SCH (09:00)
[2017-11-28] MEDS ORDERED: SODIUM CHLORIDE 0.9% FLUSH 10 ML FLUSH IV FLUSH SCH (09:00)
--- NOTE | 2017-11-28 10:56 | EKG ---
Date Performed: 11/28/2017 Time Performed: 05:52:59 PTAGE: 67 years EKG: SINUS TACHYCARDIA WITH SHORT CT INTERVAL NONSPECIFIC T-WAVE ABNORMALITY ABNORMAL RHYTHM ECG PREVIOUS TRACING : 10/17/2017 07.41 DOCTOR: Eric Saini Interpretating Date/Time 11/28/2017 10:53:26
== END 2017-11-28 08:23 | disposition left against medical advice (07) ==
LOC: NEPE 04:39 → NEDA 07:15 → UNDOADMIN 07:15 → UNDODISIN 08:23 → NEPE 08:23
DX: J18.1 Lobar pneumonia, unspecified organism (principal); B20 Human immunodeficiency virus [HIV] disease; R07.89 Other chest pain; R06.02 Shortness of breath; I10 Essential (primary) hypertension; Z85.89 Personal history of malignant neoplasm of other organs and systems; R94.31 Abnormal electrocardiogram [ECG] [EKG]
CPT/HCPCS: 71045; 80053; 82550; 82552; 83605; 83735; 83880; 84484; 85025; 87804; 93005; 94640; 94664; 96365; 99285; A7521; J0456; J0696; J1642; J7030; J7050

== ENCOUNTER 2017-11-28 09:57 | Inpatient (IN) | payer OTHER, MEDICAID, MEDICARE ==
[~2017-11-28] VITALS: Ht 175.3 cm; Wt 55.1 kg
[2017-11-28] VITALS (8 sets, daily range): BP systolic 114–133; BP diastolic 72–78; PULSE 87–124; RESP 18–30; TEMP 98.6–100.9; O2SAT 90–95
[~2017-11-28 09:57] MED LIST changes: +LEVA750T9 PO; +LEVO25SO G-TUBE
--- NOTE | 2017-11-28 10:46 | PD ---
HPI Chief Complaint: Respiratory Distress Time Seen by Provider: 10:14 Travel History International Travel<30 days: No Contact w/Intl Traveler<30days: No Traveled to known affect area: No History of Present Illness HPI Patient is a 67-year-old male who comes in do to cough and shortness of breath. Also complains of back pain. He was seen here overnight and was admitted for pneumonia. He signed out AMA about 2 hours ago. He comes back because he is still short of breath does not have oxygen at home. Nothing else has changed. He is requesting pain medicine for his back, which is chronic. PFSH Past Medical History Hx Anticoagulant Therapy: No Arthritis: Yes Asthma: No Autoimmune Disease: Yes Blood Disorders: No Heart Rhythm Problems: No Cancer: Yes (SQUAMOUS CELL THROAT CA) Cardiovascular Problems: No High Cholesterol: Yes Chemotherapy: Yes Chest Pain: No Congestive Heart Failure: No COPD: No Cerebrovascular Accident: No Diabetes: No Diminished Hearing: No Endocrine: No Gastrointestinal Disorders: Yes (G-TUBE, RECTAL MASS) GERD: No Genitourinary: No Hepatitis: No Hiatal Hernia: Yes Hypertension: Yes Immune Disorder: Yes (HIV/AIDS) Musculoskeletal: No Neurologic: No Psychiatric: No Reproductive: No Respiratory: Yes (Throat CA with trach > 1 yr) Immunizations Current: Yes Migraines: No Myocardial Infarction: No Radiation Therapy: Yes Seizures: No Sleep Apnea: No Thyroid Disease: No Ulcer: No Past Surgical History Abdominal Surgery: Yes (G-TUBE, HERNIA REPAIR) AICD: No Body Medical Devices: LEFT CHEST PORT Cardiac Surgery: No Ear Surgery: No Endocrine Surgery: No Eye Surgery: No Genitourinary Surgery: No Gynecologic Surgery: No Insulin Pump: No Joint Replacement: No Neurologic Surgery: No Oral Surgery: No Pacemaker: No Thoracic Surgery: No Other Surgery: Yes (Trach placed ) Social History Alcohol Use: No Tobacco Use: No Substance Use: No Allergies-Medications (Allergen,Severity, Reaction): Coded Allergies: morphine (Unverified Allergy, Severe, Seizures, 11/28/17) WHEN TAKEN IN COMBINATION WITH OXYCODONE oxycodone (Unverified Allergy, Severe, Seizures, 11/28/17) WHEN TAKEN IN COMBINATION WITH MORPHINE Reported Meds & Prescriptions Reported Meds & Active Scripts Active Levofloxacin Liq (Levofloxacin) 25 Mg/Ml Soln 750 Mg G-TUBE Q24H 7 Days Review of Systems Except as stated in HPI: all other systems reviewed are Neg Cardiovascular: No: Chest Pain or Discomfort Respiratory: Positive: Shortness of Breath Gastrointestinal: No: Nausea, Vomiting Musculoskeletal: Positive: Pain Skin: No Rash, No Itching Physical Exam Narrative GENERAL: Awake and alert, no acute distress. SKIN: Focused skin assessment warm/dry. No wounds or signs of infection. HEAD: Atraumatic. Normocephalic. EYES: Pupils equal and round. No scleral icterus. ENT: Trach in place. Mucous membranes pink and moist. NECK: Trachea midline. No JVD. CARDIOVASCULAR: Tachycardia. No murmur appreciated. RESPIRATORY: No accessory muscle use. Coarse breath sounds. Breath sounds equal bilaterally. GASTROINTESTINAL: Abdomen soft, non-tender, nondistended. MUSCULOSKELETAL: No obvious deformities. No clubbing. No cyanosis. No edema. NEUROLOGICAL: Awake and alert. No obvious cranial nerve deficits. Motor grossly within normal limits. Normal speech. PSYCHIATRIC: Appropriate mood and affect; insight and judgment normal. Data Data Last Documented VS Vital Signs Date Time Temp Pulse Resp B/P (MAP) Pulse Ox O2 Delivery O2 Flow Rate FiO2 11/28/17 10:17 30 11/28/17 10:03 98.6 124 131/78 (95) 95 Orders Orders Admit Order (Ed Use Only) (11/28/17 ) MDM Medical Decision Making Medical Screen Exam Complete: Yes Emergency Medical Condition: Yes Medical Record Reviewed: Yes Differential Diagnosis Pneumonia versus URI versus influenza Narrative Course Patient is a 67-year-old male who comes in complaining of shortness of breath. He was seen a few hours ago. No new lab work was sent. Admission order placed , for continued treatment. Diagnosis Primary Impression: Community acquired pneumonia Qualified Codes: J18.9 - Pneumonia, unspecified organism Admitting Information Admitting Physician Requests: Admit Anay Darden MD Nov 28, 2017 10:45
[2017-11-28] MEDS ORDERED: LORazepam 2 MG/ML VIAL IV PUSH ONE (11:00)
[2017-11-28] MEDS ORDERED: ACETAMINOPHEN/HYDROcodone 325 MG/5 MG TAB PO ONE (11:00)
[2017-11-28] MEDS ORDERED: ACETAMINOPHEN/HYDROcodone 325 MG/5 MG TAB PEG ONE (11:15)
--- NOTE | 2017-11-28 11:41 | HHI.HP ---
[facility] Admission Diagnosis pneumonia, sepsis Diagnoses: Chief Complaint: Cough, congestion. Travel History International Travel<30 Days: No Contact w/Intl Traveler <30 Da: No Traveled to Known Affected Are: No Sepsis Criteria SIRS Criteria (2 or more): Temp > 100.9 or < 96.8, Heart rate over 90, RR > 20 or PaCO2 < 32 Sepsis Criteria (SIRS+source): Infect source susp/known History of Present Illness Mr. Patten is a 67 year old male with a history of HIV, throat cancer s/p tracheostomy and G-tube placement who originally presented to the ED earlier this morning due to cough, congestion. A diagnosis of pneumonia was made and patient was admitted to the hospitalist service. Unfortunately, despite much effort made to convince patient to remain in the hospital at least for a day, he decided to leave AMA only to come back later. He started having cough, congestion around 6PM on 11/27/2017. He reported chest pressure as well as shortness of breath. He was supposed to follow up with his ENT doctor today to remove tracheostomy tube. Patient denies any abdominal pain, nausea, vomiting. No changes in bowel or bladder habits. Review of Systems Except as stated in HPI: all other systems reviewed are Neg Past Family Social History Past Medical History Squamous cell throat cancer Hyperlipidemia HIV/AIDS Past Surgical History Hernia repair, G-tube placement, left chest port placement Allergies: Coded Allergies: morphine (Unverified Allergy, Severe, Seizures, 11/28/17) WHEN TAKEN IN COMBINATION WITH OXYCODONE oxycodone (Unverified Allergy, Severe, Seizures, 11/28/17) WHEN TAKEN IN COMBINATION WITH MORPHINE Family History Family history of hypertension. Social History Patient denies using alcohol, tobacco, illicit drugs Physical Exam Vital Signs Vital Signs Date Time Temp Pulse Resp B/P (MAP) Pulse Ox O2 Delivery O2 Flow Rate FiO2 11/28/17 10:03 98.6 124 30 131/78 (95) 95 Physical Exam GENERAL: This is a well-nourished, well-developed patient, in no apparent distress. SKIN: No rashes, ecchymoses or lesions. Warm and dry. HEAD: Atraumatic. Normocephalic. No temporal or scalp tenderness. EYES: Pupils equal round and reactive. No injection or drainage. ENT: Nose without bleeding, purulent drainage or septal hematoma. s/p trach. NECK: Trachea midline. No lymphadenopathy. Supple, nontender, no meningeal signs. CARDIOVASCULAR: Regular rhythm but tachycardic without murmurs, gallops, or rubs. No JVD. RESPIRATORY: Moderate air entry. Breath sounds equal bilaterally. coarse breath sounds. GASTROINTESTINAL: Abdomen soft, non-tender, nondistended. No guarding. MUSCULOSKELETAL: Extremities without clubbing, cyanosis, or edema. NEUROLOGICAL: Awake and alert. Cannot voice words. Imaging Last Impressions Chest X-Ray 11/28/17 3867 Signed Impressions: Service Date/Time: Tuesday, November 28, 2017 06:13 - CONCLUSION: Mild left lower lobe opacity could represent atelectasis or airspace consolidation. Phani Encarnacion MD Caprini VTE Risk Assessment Caprini VTE Risk Assessment: Mod/High Risk (score >= 2) Caprini Risk Assessment Model Point Value = 1 Point Value = 2 Point Value = 3 Point Value = 5 Age 41-60 Minor surgery BMI > 25 kg/m2 Swollen legs Varicose veins or History of unexplained or recurrent spontaneous Oral contraceptives or hormone replacement Sepsis (< 1 month) Serious lung disease, including pneumonia (< 1 month) Abnormal pulmonary function Acute myocardial infarction Congestive heart failure (< 1 month) History of inflammatory bowel disease Medical patient at bed rest Age 61-74 Arthroscopic surgery Major open surgery (> 45 min) Laparoscopic surgery (> 45 min) Malignancy Confined to bed (> 72 hours) Immobilizing plaster cast Central venous access Age >= 75 History of VTE Family history of VTE Factor V Leiden Prothrombin [id number] Lupus anticoagulant Anticardiolipin antibodies Elevated serum homocysteine Heparin-induced thrombocytopenia Other congenital or acquired thrombophilia Stroke (< 1 month) Elective arthroplasty Hip, pelvis, or leg fracture Acute spinal cord injury (< 1 month) Prophylaxis Regimen Total Risk Factor Score Risk Level Prophylaxis Regimen 0-1 Low Early ambulation 2 Moderate Order ONE of the following: *Sequential Compression Device (SCD) *Heparin 5000 units SQ BID 3-4 Higher Order ONE of the following medications: *Heparin 5000 units SQ TID *Enoxaparin/Lovenox 40 mg SQ daily (WT < 150 kg, CrCl > 30 mL/min) *Enoxaparin/Lovenox 30 mg SQ daily (WT < 150 kg, CrCl > 10-29 mL/min) *Enoxaparin/Lovenox 30 mg SQ BID (WT < 150 kg, CrCl > 30 mL/min) AND/OR *Sequential Compression Device (SCD) 5 or more Highest Order ONE of the following medications: *Heparin 5000 units SQ TID (Preferred with Epidurals) *Enoxaparin/Lovenox 40 mg SQ daily (WT < 150 kg, CrCl > 30 mL/min) *Enoxaparin/Lovenox 30 mg SQ daily (WT < 150 kg, CrCl > 10-29 mL/min) *Enoxaparin/Lovenox 30 mg SQ BID (WT < 150 kg, CrCl > 30 mL/min) AND *Sequential Compression Device (SCD) Assessment and Plan Problem List: (1) Sepsis ICD Code: A41.9 - Sepsis, unspecified organism (2) Community acquired pneumonia ICD Code: J18.9 - Pneumonia, unspecified organism Status: Acute (3) HIV (human immunodeficiency virus infection) ICD Code: B20 - Human immunodeficiency virus [HIV] disease Status: Chronic (4) History of throat cancer ICD Code: Z85.819 - Personal history of malignant neoplasm of unspecified site of lip, oral cavity, and pharynx Status: Chronic Assessment and Plan Patient was admitted for pneumonia earlier in the day. He left AMA only to come back later. He started experiencing cough, congestion at around 6PM on 2017. On the day of admission (11/28/2017), he was actually supposed to see his ENT doctor (could not tell me the name) to possibly remove trach. - Sepsis (HR > 90, RR > 20, Temp 100.9, Pneumonia). - Community acquired Pneumonia - Initially started patient on Azithromycin 500mg IV Qday and Ceftriaxone 2g IV Qday. - Will change Ceftriaxone to Cefepime 2g Q8hrs for Pseudomonas coverage as well. - Trach care per respiratory therapy. - Supplemental O2 to keep O2 sat > 90%. - DuoNeb PRN. - Blood cultures x 2 - Will consult Pulmonary to help us with trach management as well. - Nutrition - Patient does not eat by mouth. He is dependent on G-tube feeding. - Start Tube feed Jevity 1.5 - Surgical Sales Representative consult to adjust the rate. - HIV - patient states he is compliant with his meds. Unknown CD4 count, unknown home medications. - Hx of Throat cancer - s/p Chemo and radiation. Full code. Lovenox. Physician Certification 2 Midnight Certification Type: Admission for Inpatient Services Order for Inpatient Services The services are ordered in accordance with Medicare regulations or non- Medicare payer requirements, as applicable. In the case of services not specified as inpatient-only, they are appropriately provided as inpatient services in accordance with the 2-midnight benchmark. Estimated LOS (days): 2 days is the estimated time the patient will need to remain in the hospital, assuming treatment plan goals are met and no additional complications. Post-Hospital Plan: Home Missy Marks DO Nov 28, 2017 11:41
[2017-11-28] MEDS ORDERED: ONDANSETRON HCL 4 MG/2 ML VIAL IVP PRN (11:45)
[2017-11-28] MEDS ORDERED: SODIUM CHLORIDE 0.9% FLUSH 10 ML FLUSH IV FLUSH PRN (11:45)
[2017-11-28] MEDS ORDERED: SENNOSIDES 8.6 MG TAB PO PRN (11:45)
[2017-11-28] MEDS ORDERED: ACETAMINOPHEN 325 MG TAB PO PRN (11:45)
[2017-11-28] MEDS ORDERED: MAGNESIUM HYDROXIDE SUSP 30 ML CUP PO PRN (11:45)
[2017-11-28] MEDS ORDERED: NALOXONE HCL 0.4 MG/ML AMP IV PUSH PRN (11:45)
[2017-11-28] MEDS ORDERED: LACTULOSE SYRUP 20 GM/30 ML CUP PO PRN (11:45)
[2017-11-28] MEDS ORDERED: BISACODYL 10 MG SUPP RECTAL PRN (11:45)
[2017-11-28] MEDS: ENOXAPARIN SODIUM 40 MG/0.4 ML SYRINGE SQ SCH (14:57)
[2017-11-28] MEDS ORDERED: RESP: ALBUTEROL 2.5 MG/IPRATROPIUM 0.5 MG NEB (PRN) NEB (18:00)
[2017-11-28] MEDS: SODIUM CHLORIDE 0.9% FLUSH 10 ML FLUSH IV FLUSH SCH (20:41)
[2017-11-28] MEDS: ACETAMINOPHEN/HYDROcodone 325 MG/5 MG TAB PEG PRN (20:42)
[2017-11-28] MEDS: CEFEPIME INJ 2,000 MG in SODIUM CHLORIDE 0.9% INJ 100 ML IV SCH (22:34)
[2017-11-29] VITALS (8 sets, daily range): BP systolic 94–134; BP diastolic 61–73; PULSE 70–101; RESP 16–20; TEMP 97.3–99; O2SAT 94–97
[2017-11-29] MEDS: ACETAMINOPHEN/HYDROcodone 325 MG/5 MG TAB PEG PRN ×2 (00:51→05:52)
[2017-11-29] MEDS ORDERED: LACTULOSE SYRUP 20 GM/30 ML CUP G-TUBE PRN (05:30)
[2017-11-29] MEDS ORDERED: RESP: ALBUTEROL 2.5 MG/3 ML NEB (PRN) NEB (05:30)
[2017-11-29] MEDS: CEFEPIME INJ 2,000 MG in SODIUM CHLORIDE 0.9% INJ 100 ML IV SCH ×3 (05:36→21:07)
[2017-11-29] MEDS ORDERED: cefTRIAXone INJ 2,000 MG in SODIUM CHLORIDE 0.9% INJ 100 ML IV SCH (07:00)
[2017-11-29] MEDS ORDERED: ACETAMINOPHEN 325 MG TAB G-TUBE PRN (07:45)
[2017-11-29] MEDS: AZITHROMYCIN INJ 500 MG in SODIUM CHLOR 0.9% 250 ML INJ 250 ML IV SCH (08:05)
[2017-11-29] MEDS: SODIUM CHLORIDE 0.9% FLUSH 10 ML FLUSH IV FLUSH SCH ×2 (08:06→21:08)
[2017-11-29] MEDS: RESP: ALBUTEROL 2.5 MG/IPRATROPIUM 0.5 MG NEB (SCH) NEB ×4 (08:30→21:11)
[2017-11-29 08:42] LABS: AUTOMATED NEUTROPHIL # 8.9 TH/MM3 (1.8-7.7); BASOPHIL % 0.2 % (0.0-2.0); EOSINOPHIL % 0.1 % (0.0-4.0); HEMOGLOBIN 10.1 GM/DL (13.0-17.0); LYMPH % 10.4 % (9.0-44.0); LYMPHOCYTE # 1.1 TH/MM3 (1.0-4.8); MEAN CELL VOLUME 85.1 FL (80.0-100.0); MEAN CORPUSCULAR HEMOGLOBIN 27.6 PG (27.0-34.0); MEAN CORPUSCULAR HGB CONC 32.5 % (32.0-36.0); MEAN PLATELET VOLUME 10.7 FL (7.0-11.0); MONO % 3.1 % (0.0-8.0); MONOCYTE # 0.3 TH/MM3 (0-0.9); NEUT % 86.2 % (16.0-70.0); PLATELET COUNT 68 TH/MM3 (150-450); RED BLOOD COUNT 3.64 MIL/MM3 (4.50-5.90); RED CELL DISTRIBUTION WIDTH 12.7 % (11.6-17.2); WHITE BLOOD COUNT 10.3 TH/MM3 (4.0-11.0)
[2017-11-29] MEDS ORDERED: LEVOFLOXACIN 750 MG TAB PO SCH (09:00)
[2017-11-29 10:02] LABS: BANDS 44 % (0-6); BASOPHILS 1 % (0-2); LYMPHOCYTES 12 % (9-44); METAMYELOCYTES 18 % (0-1); MYELOCYTES 1 % (0-0); POLYS (SEG NEUTROPHILS) 24 % (16-70)
[2017-11-29 10:03] LABS: DOHLE BODIES PRESENT (NONE SEEN); TOXIC VACUOLATION PRESENT (NONE SEEN)
[2017-11-29] MEDS ORDERED: SENNOSIDES 8.6 MG TAB G-TUBE PRN (11:45)
[2017-11-29] MEDS ORDERED: MAGNESIUM HYDROXIDE SUSP 30 ML CUP G-TUBE PRN (11:45)
[2017-11-29] MEDS: ENOXAPARIN SODIUM 40 MG/0.4 ML SYRINGE SQ SCH (13:07)
--- NOTE | 2017-11-29 14:43 | HHI.PR ---
Subjective Remarks Follow-up pneumonia. Improving shortness of breath. Discussed with respiratory therapist, decreased trach secretions. Patient does not take any medicines Objective Vitals Vital Signs Date Time Temp Pulse Resp B/P (MAP) Pulse Ox O2 Delivery O2 Flow Rate FiO2 11/29/17 12:00 97.3 97 18 96/61 (73) 97 11/29/17 12:00 82 11/29/17 08:34 Trach Collar 6.00 40 11/29/17 08:00 92 11/29/17 08:00 98.3 98 20 94/62 (73) 95 11/29/17 08:00 Trach Collar 4.00 40 11/29/17 06:10 98.9 101 16 128/66 (86) 95 11/29/17 03:49 96 11/29/17 00:44 99.0 94 16 134/72 (92) 94 11/28/17 23:46 87 11/28/17 21:21 99.3 105 18 133/75 (94) 90 11/28/17 19:46 109 11/28/17 18:39 95 Trach Collar 6.00 40 11/28/17 16:41 11/28/17 16:00 100.9 110 20 120/72 (88) 91 I/O 11/28/17 11/28/17 11/28/17 11/29/17 11/29/17 11/29/17 07:00 15:00 23:00 07:00 15:00 23:00 Output Total 150 ml 450 ml Balance -150 ml -450 ml Output Urine Total 150 ml 450 ml # Bowel Movements 0 Result Diagram: 11/29/17 0738 Objective Remarks GENERAL: This is a well-nourished, well-developed patient, in no apparent distress. SKIN: No rashes, ecchymoses or lesions. Warm and dry. CARDIOVASCULAR: Regular rhythm but tachycardic without murmurs, gallops, or rubs. No JVD. RESPIRATORY: Moderate air entry. Breath sounds equal bilaterally. coarse breath sounds. GASTROINTESTINAL: Abdomen soft, non-tender, nondistended. No guarding. MUSCULOSKELETAL: Extremities without clubbing, cyanosis, or edema. NEUROLOGICAL: Awake and alert. Cannot voice words. Procedures none A/P Problem List: (1) Sepsis ICD Code: A41.9 - Sepsis, unspecified organism (2) Community acquired pneumonia ICD Code: J18.9 - Pneumonia, unspecified organism Status: Acute (3) HIV (human immunodeficiency virus infection) ICD Code: B20 - Human immunodeficiency virus [HIV] disease Status: Chronic (4) History of throat cancer ICD Code: Z85.819 - Personal history of malignant neoplasm of unspecified site of lip, oral cavity, and pharynx Status: Chronic Assessment and Plan Patient was admitted for pneumonia earlier in the day. He left AMA only to come back later. He started experiencing cough, congestion at around 6PM on 2017. On the day of admission (11/28/2017), he was actually supposed to see his ENT doctor (could not tell me the name) to possibly remove trach. Sepsis (HR > 90, RR > 20, Temp 100.9, Pneumonia). Community acquired Pneumonia - Stable ct Azithromycin 500mg IV Qday and Cefepime 2g Q8hrs for Pseudomonas coverage as well. - Trach care per respiratory therapy. - Supplemental O2 to keep O2 sat > 90%. - DuoNeb PRN. - Blood cultures x 2 - Will consult Pulmonary to help us with trach management as well. Nutrition - Patient does not eat by mouth. He is dependent on G-tube feeding. - Start Tube feed Jevity 1.5 bolus feedings - Administration Intern consult to adjust the rate. HIV -does not take any HAART. Obtain latest CD4 count and viral load from PCP or HIV physician. Hx of Throat cancer - s/p Chemo and radiation. Chronic thrombocytopenia. Monitor Mild hyponatremia. Asymptomatic Mild AST elevation likely secondary to sepsis DVT prophylaxis with SCD and Lovenox Lennox Sorenson MD Nov 29, 2017 14:43
[2017-11-29 17:03] LABS: ALBUMIN 2.8 GM/DL (3.4-5.0); ALKALINE PHOSPHATASE 53 U/L (45-117); ALT (GPT) 21 U/L (12-78); AST (GOT) 35 U/L (15-37); BICARBONATE 27.3 MEQ/L (21.0-32.0); BLOOD UREA NITROGEN 17 MG/DL (7-18); CALCIUM 9.1 MG/DL (8.5-10.1); CHLORIDE 101 MEQ/L (98-107); CREATININE 0.78 MG/DL (0.60-1.30); GLOMERULAR FILTRATION RATE 121 ML/MIN (>89); GLUCOSE,RANDOM 99 MG/DL (74-106); SODIUM (NA) 134 MEQ/L (136-145); TOTAL BILIRUBIN ADULT 0.4 MG/DL (0.2-1.0); TOTAL PROTEIN 6.8 GM/DL (6.4-8.2)
[2017-11-29] MEDS ORDERED: ACETAMINOPHEN/HYDROcodone 325 MG/5 MG TAB PO PRN (22:00)
[2017-11-30] VITALS (8 sets, daily range): BP systolic 105–132; BP diastolic 65–72; PULSE 72–97; RESP 19–20; TEMP 98–98.7; O2SAT 93–98
[2017-11-30] MEDS: RESP: ALBUTEROL 2.5 MG/IPRATROPIUM 0.5 MG NEB (SCH) NEB ×5 (00:43→15:29)
[2017-11-30] MEDS: CEFEPIME INJ 2,000 MG in SODIUM CHLORIDE 0.9% INJ 100 ML IV SCH ×2 (05:00→13:10)
[2017-11-30 05:43] LABS: AUTOMATED NEUTROPHIL # 5.9 TH/MM3 (1.8-7.7); BASOPHIL % 0.3 % (0.0-2.0); EOSINOPHIL # 0.2 TH/MM3 (0-0.4); EOSINOPHIL % 2.1 % (0.0-4.0); HEMATOCRIT 30.8 % (39.0-51.0); LYMPH % 21.4 % (9.0-44.0); LYMPHOCYTE # 1.8 TH/MM3 (1.0-4.8); MEAN CELL VOLUME 84.4 FL (80.0-100.0); MEAN CORPUSCULAR HEMOGLOBIN 27.4 PG (27.0-34.0); MEAN CORPUSCULAR HGB CONC 32.5 % (32.0-36.0); MEAN PLATELET VOLUME 10.2 FL (7.0-11.0); MONO % 4.5 % (0.0-8.0); MONOCYTE # 0.4 TH/MM3 (0-0.9); NEUT % 71.7 % (16.0-70.0); PLATELET COUNT 69 TH/MM3 (150-450); RED BLOOD COUNT 3.64 MIL/MM3 (4.50-5.90); RED CELL DISTRIBUTION WIDTH 12.9 % (11.6-17.2); WHITE BLOOD COUNT 8.2 TH/MM3 (4.0-11.0)
[2017-11-30 06:07] LABS: BICARBONATE 26.9 MEQ/L (21.0-32.0); BLOOD UREA NITROGEN 16 MG/DL (7-18); CALCIUM 9.4 MG/DL (8.5-10.1); CHLORIDE 101 MEQ/L (98-107); GLOMERULAR FILTRATION RATE 137 ML/MIN (>89); GLUCOSE,RANDOM 128 MG/DL (74-106); MAGNESIUM 1.8 MG/DL (1.5-2.5); SODIUM (NA) 135 MEQ/L (136-145)
[2017-11-30 06:11] LABS: TROPONIN I LESS THAN 0.02 NG/ML (0.02-0.05)
[2017-11-30 06:25] LABS: BANDS 31 % (0-6); BASOPHILS 1 % (0-2); LYMPHOCYTES 17 % (9-44); METAMYELOCYTES 2 % (0-1); MONOCYTES 3 % (0-8); NEUTROPHIL # MANUAL DIFF 6.5 TH/MM3 (1.8-7.7); POLYS (SEG NEUTROPHILS) 46 % (16-70)
[2017-11-30 06:27] LABS: DOHLE BODIES PRESENT (NONE SEEN); TOXIC VACUOLATION PRESENT (NONE SEEN)
[2017-11-30 06:29] LABS: TARGET CELLS 1+ (NORMAL)
[2017-11-30 06:30] LABS: ACANTHOCYTES OCC (NORMAL); KERATOCYTES OCC (NORMAL)
[2017-11-30] MEDS ORDERED: POTASSIUM CHLORIDE 20 MEQ CONTROLLED RELEASE TAB PO ONE (07:45)
[2017-11-30] MEDS ORDERED: POTASSIUM CHLORIDE 20 MEQ PWD PACKET G-TUBE ONE (08:45)
[2017-11-30] MEDS: AZITHROMYCIN INJ 500 MG in SODIUM CHLOR 0.9% 250 ML INJ 250 ML IV SCH (08:53)
[2017-11-30] MEDS: SODIUM CHLORIDE 0.9% FLUSH 10 ML FLUSH IV FLUSH SCH (08:54)
[2017-11-30] MEDS: ENOXAPARIN SODIUM 40 MG/0.4 ML SYRINGE SQ SCH (12:18)
[2017-11-30] MEDS ORDERED: HYDR1SOL3 PO ×2 (13:05)
[2017-11-30] MEDS ORDERED: ACETAMINOPHEN 325MG/HYDROcodone 7.5MG/15ML UDC PO PRN (14:15)
[2017-11-30] MEDS ORDERED: AMOXSUS PO (14:42)
--- NOTE | 2017-11-30 14:43 | HHI.DCPOC ---
Discharge Care Plan Diagnosis: (1) Community acquired pneumonia Your Health Problems Are: Difficulty with ADL Exercise Tolerance Goals to Promote Your Health * To prevent worsening of your condition and complications * To maintain your health at the optimal level Directions to Meet Your Goals Take your medications as prescribed Follow your dietary instruction Follow activity as directed Keep your appointments as scheduled Take your immunizations and boosters as scheduled If your symptoms worsen call your PCP, if no PCP go to Urgent Care Center or Emergency Room Smoking is Dangerous to Your Health. Avoid second hand smoke Call the 24-hour hour crisis hotline for domestic abuse at Lennox Sorenson MD Nov 30, 2017 14:43
[2017-11-30] MEDS ORDERED: AMOXICIL-CLAV 600 MG/5 ML LIQ 125 ML BTL PO SCH (15:00)
--- NOTE | 2017-11-30 15:12 | HHI.PR ---
Objective Vitals Vital Signs Date Time Temp Pulse Resp B/P (MAP) Pulse Ox O2 Delivery O2 Flow Rate FiO2 11/30/17 12:09 98.1 97 19 105/70 (82) 93 11/30/17 08:15 Trach Collar 35 11/30/17 08:09 98.3 94 19 108/70 (83) 96 11/30/17 08:00 88 11/30/17 07:00 88 11/30/17 07:00 Trach Collar 4.00 25 Humidified 11/30/17 04:00 88 11/30/17 04:00 98.0 81 20 105/72 (83) 98 11/30/17 00:00 98.6 92 20 111/65 (80) 94 11/30/17 00:00 91 11/29/17 21:26 95 Trach Collar 6.00 40 11/29/17 20:00 94 Trach Collar 4.00 40 11/29/17 20:00 94 11/29/17 20:00 99.0 90 20 116/72 (87) 94 11/29/17 16:00 86 11/29/17 16:00 98.3 96 18 105/65 (78) 96 I/O 11/29/17 11/29/17 11/29/17 11/30/17 11/30/17 11/30/17 07:00 15:00 23:00 07:00 15:00 23:00 Intake Total 100 ml 1330 ml Output Total 450 ml 650 ml 1100 ml Balance -450 ml -550 ml 230 ml Intake Oral 480 ml IV Total 100 ml 100 ml Tube Feeding 550 ml Other 200 ml Output Urine Total 450 ml 650 ml 1100 ml Result Diagram: 11/30/1751811/30/17 0519 Objective Remarks GENERAL: This is a well-nourished, well-developed patient, in no apparent distress. SKIN: No rashes, ecchymoses or lesions. Warm and dry. CARDIOVASCULAR: Regular rhythm but tachycardic without murmurs, gallops, or rubs. No JVD. RESPIRATORY: Moderate air entry. Breath sounds equal bilaterally. coarse breath sounds. GASTROINTESTINAL: Abdomen soft, non-tender, nondistended. No guarding. MUSCULOSKELETAL: Extremities without clubbing, cyanosis, or edema. NEUROLOGICAL: Awake and alert. Cannot voice words. Procedures none A/P Problem List: (1) Sepsis ICD Code: A41.9 - Sepsis, unspecified organism (2) Community acquired pneumonia ICD Code: J18.9 - Pneumonia, unspecified organism Status: Acute (3) HIV (human immunodeficiency virus infection) ICD Code: B20 - Human immunodeficiency virus [HIV] disease Status: Chronic (4) History of throat cancer ICD Code: Z85.819 - Personal history of malignant neoplasm of unspecified site of lip, oral cavity, and pharynx Status: Chronic Assessment and Plan Patient was admitted for pneumonia earlier in the day. He left AMA only to come back later. He started experiencing cough, congestion at around 6PM on 2017. On the day of admission (11/28/2017), he was actually supposed to see his ENT doctor (could not tell me the name) to possibly remove trach. Sepsis (HR > 90, RR > 20, Temp 100.9, Pneumonia). Community acquired Pneumonia - Stable ct Azithromycin 500mg IV Qday and Cefepime 2g Q8hrs for Pseudomonas coverage as well. - Trach care per respiratory therapy. - Supplemental O2 to keep O2 sat > 90%. - DuoNeb PRN. - Blood cultures x 2 - Will consult Pulmonary to help us with trach management as well. Nutrition - Patient does not eat by mouth. He is dependent on G-tube feeding. - Start Tube feed Jevity 1.5 bolus feedings - Computer Hardware Designer consult to adjust the rate. HIV -does not take any HAART. Obtain latest CD4 count and viral load from PCP or HIV physician. Hx of Throat cancer - s/p Chemo and radiation. Chronic thrombocytopenia. Monitor Mild hyponatremia. Asymptomatic Mild AST elevation likely secondary to sepsis DVT prophylaxis with SCD and Lovenox Lennox Sorenson MD Nov 30, 2017 15:12
--- NOTE | 2017-11-30 16:06 | MB ---
cc: Shelby KRAMER DATE OF CONSULTATION: 11/30/2017. REASON FOR CONSULTATION: HISTORY OF PRESENT ILLNESS: Mr. 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 He has had a recent follow up there and it was elected to leave the tracheostomy in for now because there was still quite a bit of narrowing above the tracheostomy tube from the radiation therapy according to the patient. He presented to the hospital because he was having a scratchy sore throat and a cough and he was concerned that he could have pneumonia. He was here in August and did have pneumonia, which cleared. He was a former smoker, probably has underlying COPD, although I do not have documentation for that. He does have a nebulizer at home, but it is broken and he has not used it for a few months. On admission, he had a chest x-ray which was interpreted as showing left lower lobe infiltrate. I reviewed those films and there is a faint retrocardiac density but not anything terribly significant. Since the patient was admitted, he has been suctioned several times, and since then he has had some blood streaking of the sputum. He denies that he had had any blood prior to the admission or previously. He has been afebrile. He was started on broad-spectrum antibiotics in light of the recent pneumonia and hospitalization and the presence of the tracheostomy. White count however has been normal; today, it was 8200. Cultures include two blood cultures which have been negative but no sputum culture. A nasal wash for influenza A and B was negative. The only sputum that we have was from the August admission at which time he had heavy normal haroldo. 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 2. Hyperlipidemia. 3. HIV. 4. Prior hernia repair. 5. G-tube placement. 6. Tracheostomy. ALLERGIES: 1. MORPHINE. 2. OXYCODONE. SOCIAL HISTORY: Lives alone. Manages his own affairs. No current tobacco or alcohol use. REVIEW OF SYSTEMS: As noted above. He does not take anything orally, everything is by G-tube. PHYSICAL EXAMINATION: VITAL SIGNS: 98, 105/70, pulse 90, respirations 18, 02 saturation is 98% on humidified air about 30%. HEAD, EYES, EARS, NOSE, THROAT: The sclerae are nonicteric. Tracheostomy tube looks clean. CHEST: He does have some scattered congestion in his chest. HEART: No harsh murmur. No audible S3. EXTREMITIES: No edema or cyanosis. Mr. Patten presented with cough and congestion and may have had some respiratory infection. We do not have any cultures. He says he feels fine now. I have spoken to the primary hospitalist. The patient's nebulizer is broken. We need to see if we can get that replaced so he can go back to using his aerosol treatments two or three times a day. As long as his O2 sat is stable on room air, he feels comfortable. I think he could go home with liquid antibiotics per the G tube. Levaquin and Cipro would be fine if they are available in liquid form. He has regular follow up with his primary physician as well as his ENT physician in [place]. There is no indication to do anything more with the tracheostomy at present. R. MD RICARDO Ferris/MILE /2:34 PM /3:47 PM
--- NOTE | 2017-11-30 17:46 | HHI.DS ---
Discharge Summary Admission Date Nov 28, 2017 at 10:37 Discharge Date: Nov 30, 2017 Admitting Diagnosis pneumonia, sepsis (1) Sepsis ICD Code: A41.9 - Sepsis, unspecified organism Diagnosis: Principal (2) Community acquired pneumonia ICD Code: J18.9 - Pneumonia, unspecified organism Diagnosis: Principal Status: Acute (3) HIV (human immunodeficiency virus infection) ICD Code: B20 - Human immunodeficiency virus [HIV] disease Diagnosis: Principal Status: Chronic (4) History of throat cancer ICD Code: Z85.819 - Personal history of malignant neoplasm of unspecified site of lip, oral cavity, and pharynx Diagnosis: Principal Status: Chronic Procedures none Brief History - From Admission Mr. Patten is a 67 year old male with a history of HIV, throat cancer s/p tracheostomy and G-tube placement who originally presented to the ED earlier this morning due to cough, congestion. A diagnosis of pneumonia was made and patient was admitted to the hospitalist service. Unfortunately, despite much effort made to convince patient to remain in the hospital at least for a day, he decided to leave AMA only to come back later. He started having cough, congestion around 6PM on 11/27/2017. He reported chest pressure as well as shortness of breath. He was supposed to follow up with his ENT doctor today to remove tracheostomy tube. Patient denies any abdominal pain, nausea, vomiting. No changes in bowel or bladder habits. CBC/BMP: 11/30/17 0519 11/30/17 0519 Significant Findings Laboratory Tests Test 11/29/17 07:38 11/29/17 15:28 11/30/17 05:19 Red Blood Count 3.64 MIL/MM3 (4.50-5.90) 3.64 MIL/MM3 (4.50-5.90) Hemoglobin 10.1 GM/DL (13.0-17.0) 10.0 GM/DL (13.0-17.0) Hematocrit 31.0 % (39.0-51.0) 30.8 % (39.0-51.0) Platelet Count 68 TH/MM3 (150-450) 69 TH/MM3 (150-450) Neutrophils (%) (Auto) 86.2 % (16.0-70.0) 71.7 % (16.0-70.0) Neutrophils # (Auto) 8.9 TH/MM3 (1.8-7.7) Band Neutrophils % 44 % (0-6) 31 % (0-6) Neutrophils # (Manual) 9.0 TH/MM3 (1.8-7.7) Metamyelocytes 18 % (0-1) 2 % (0-1) Myelocytes 1 % (0-0) Toxic Vacuolation PRESENT (NONE SEEN) PRESENT (NONE SEEN) Dohle Bodies PRESENT (NONE SEEN) PRESENT (NONE SEEN) Platelet Estimate LOW (NORMAL) LOW (NORMAL) Procalcitonin 9.01 ng/mL (0.00-0.08) Albumin 2.8 GM/DL (3.4-5.0) Sodium Level 134 MEQ/L (136-145) 135 MEQ/L (136-145) Target Cells 1+ (NORMAL) Random Glucose 128 MG/DL (74-106) Troponin I LESS THAN 0.02 NG/ML PE at Discharge GENERAL: This is a well-nourished, well-developed patient, in no apparent distress on room air. SKIN: No rashes, ecchymoses or lesions. Warm and dry. CARDIOVASCULAR: Regular rhythm without murmurs, gallops, or rubs. No JVD. RESPIRATORY: Moderate air entry. Breath sounds equal bilaterally. coarse breath sounds. GASTROINTESTINAL: Abdomen soft, non-tender, nondistended. No guarding. MUSCULOSKELETAL: Extremities without clubbing, cyanosis, or edema. NEUROLOGICAL: Awake and alert. Following simple commands Hospital Course Patient was admitted for pneumonia earlier in the day. He left AMA only to come back later. He started experiencing cough, congestion at around 6PM on 2017. On the day of admission (11/28/2017), he was actually supposed to see his ENT doctor (could not tell me the name) to possibly remove trach. Sepsis (HR > 90, RR > 20, Temp 100.9, Pneumonia). Community acquired Pneumonia. Patient is clinically stable. Discussed with pulmonary, pneumonia is mild and can be discharged home with Augmentin. He has been weaned down to room air and tolerating capping. He had traumatic bleeding from his tracheostomy with suctioning which has resolved Nutrition. He is dependent on G-tube feeding which he is tolerating HIV -does not take any HAART. Obtain latest CD4 count and viral load from PCP or HIV physician. Hx of Throat cancer - s/p Chemo and radiation. Chronic thrombocytopenia. Monitor Mild hyponatremia. Asymptomatic Mild AST elevation likely secondary to sepsis DVT prophylaxis with SCD discontinue Lovenox secondary to bleeding Pt Condition on Discharge: Stable Discharge Disposition: Discharge Home Discharge Time: > 30 minutes Discharge Instructions DIET: Follow Instructions for: On Tube Feeding Additional Diet Instructions: NPO Activities you can perform: Regular-No Restrictions Activities to Avoid: Driving Follow up Referrals: Ear Nose Throat - 1 Week PCP Follow-up - 1 Week New Medications: Amoxicillin-Clavulanate Liq (Augmentin Es-600 Liq) 600-42.9 Mg/5 Ml Susp 750 MG PO BID for Infection for 12 Days, ML 0 Refills Not for adults, adolescents, or children >/= 40kg. Not interchangeable with 200 mg/5 mL or 400 mg/5 mL due to clavulanic acid. Continued Medications: Hydrocodone-Acetaminophen Liq (Hydrocodone-Acetaminophen Liq) 7.5-325 Mg/15 Ml Soln 10 ML PO Q6H PRN for PAIN, ML 0 Refills Lennox Sorenson MD Nov 30, 2017 17:46
--- NOTE | 2017-11-30 17:54 | MB ---
cc: MELCHOR PULIDO DO DATE OF CONSULTATION 11/30/2017 REASON FOR CONSULTATION Sinus pause. HISTORY OF PRESENT ILLNESS Missael Patten is a pleasant 67-year-old male who presented to [facility] emergency room originally on November 28, 2017 due to cough with phlegm production. The patient states that he has been coughing for the past few days and has been bringing up phlegm. He originally presented the day before but left AMA. While here he was admitted and treated for pneumonia. Last night, at around 03:00 a.m. the patient had a 3-1/2-4 seconds pause on telemetry. In discussing this with him he states that he was sleeping and had no symptoms of the at the time. He denies any other episodes of lightheadedness, dizziness or passing out throughout his history. He has been short of breath over the past few days as above. He has had some chest pain but relates this to coughing. He relates this to whenever he is coughing. PAST MEDICAL HISTORY 1. Squamous cell throat cancer 2. Hyperlipidemia. 3. HIV / AIDS. PAST SURGICAL HISTORY 1. Hernia repair 2. G-tube placement. 3. Tracheostomy. 4. Left chest port placement. ALLERGIES MORPHINE OXYCODONE MEDICATIONS 1. Augmentin 750 mg b.i.d. 2. Levofloxacin 750 mg daily 3. Hydrocodone / acetaminophen 7.5 / 325 mg 10 cc every 6 hours as needed for pain. FAMILY HISTORY Positive for hypertension. Denies sudden cardiac within the family. SOCIAL HISTORY The patient denies current tobacco, alcohol or drugs. He states that he had a history of drinking and partying a number years ago. States that he was not a smoker but had lot of secondhand smoke. REVIEW OF SYSTEMS 14-systems were reviewed including osteopathic pertinent positives and negatives above otherwise negative. PHYSICAL EXAMINATION VITAL SIGNS: Temperature 98.1, heart rate 97, blood pressure 105/70, respirations 19, pulse ox 93% on a trache collar. IN GENERAL: The patient appears well in no acute distress, alert awake and oriented x3. Extraocular muscles intact. Mucous membranes moist. NECK: Neck is supple. Trachea Collar noted. no carotid bruits bilaterally. HEART: The heart is regular rate and rhythm. Positive first and second heart sounds with no murmurs, gallops or rubs. LUNGS: Lungs have decreased breath sounds bilaterally with coarse breath sounds. ABDOMEN: Abdomen is soft, nontender, nondistended. No organomegaly noted. EXTREMITIES: Extremities show no clubbing, cyanosis or edema. NEUROLOGICALLY: No focal deficits. SKIN: Warm, dry and intact. Osteopathic with no kyphoscoliosis, lordosis or paraspinal tender points. LABORATORY FINDINGS Hemoglobin 10.1, hematocrit 30.8, platelets 69. He potassium 3.6, BUN 16, creatinine 0.7, troponin less than 0.02. Electrocardiogram (November 30, 2017 at 0850) sinus rhythm, nonspecific ST-T wave changes. IMPRESSION 1. Sinus pause while sleeping asymptomatic. 2. Sepsis. 3. Community acquired pneumonia 4. HIV 5. History of throat cancer with trache placement. RECOMMENDATIONS Mr. Patten appeared to have a 3-1/2 to 4 seconds pause on telemetry last night while sleeping and overall was asymptomatic. This is most likely due to increased parasympathetics and possible mucous plug Overall I review / tree which showed no high degree AV blocks or significant bradycardia causing symptoms. No family history of sudden cardiac . No further workup at this time. If the patient is further symptoms consideration could be made for outpatient rhythm analysis. Thank you for allowing me to see Missael Patten, if there are any questions please do not hesitate to call. Melchor Pulido DO [facility]/ /3:37 PM /5:14 PM
--- NOTE | 2017-12-02 00:33 | EKG ---
Date Performed: 11/30/2017 Time Performed: 08:50:40 PTAGE: 67 years EKG: Sinus rhythm Lead(s) unsuitable for analysis: V3 Septal T wave changes are nonspecific Borderline ECG PREVIOUS TRACING : 11/28/2017 05.52 Compared to prior tracing, rate has decreased DOCTOR: Melchor Danielle Interpretating Date/Time 12/02/2017 00:32:31
== END 2017-11-30 17:16 | disposition home or self-care (01) | DRG 975 ==
LOC: NEPE 09:57 → NEDA 10:37 → N04A 16:05
PROVIDERS: ADMIT Internal Medicine; ATTEND Internal Medicine
DX: A41.9 Sepsis, unspecified organism (principal); B20 Human immunodeficiency virus [HIV] disease; J44.0 Chronic obstructive pulmonary disease with (acute) lower respiratory infection; J18.9 Pneumonia, unspecified organism; D69.6 Thrombocytopenia, unspecified; Z93.0 Tracheostomy status; E87.1 Hypo-osmolality and hyponatremia; E78.5 Hyperlipidemia, unspecified; M54.9 Dorsalgia, unspecified; M19.90 Unspecified osteoarthritis, unspecified site; Z93.1 Gastrostomy status; Z85.819 Personal history of malignant neoplasm of unspecified site of lip, oral cavity, and pharynx; Z92.21 Personal history of antineoplastic chemotherapy; Z92.3 Personal history of irradiation; Z87.01 Personal history of pneumonia (recurrent); Z87.891 Personal history of nicotine dependence; R07.89 Other chest pain; R06.02 Shortness of breath; I10 Essential (primary) hypertension; R94.31 Abnormal electrocardiogram [ECG] [EKG]
CPT/HCPCS: 80048; 80053; 82550; 83735; 84145; 84443; 84484; 85007; 85027; 87040; 93005; 94640; 94664; J0456; J0692; J1650; J2060; J7050

== ENCOUNTER 2018-04-14 15:42 | Emergency (ER) | payer OTHER, MEDICAID ==
[~2018-04-14] VITALS: Ht 175.3 cm; Wt 60.0 kg
[~2018-04-14 15:42] MED LIST changes: -ABAC1TAB3 PO; +AMOXSUS PO; +HYDR1SOL3 PO; -INTE200T2 PO; -LEVA750T9 PO
[2018-04-14 15:59] VITALS: BP 118/70; PULSE 77; RESP 18; TEMP 98.4; O2SAT 99
--- NOTE | 2018-04-14 16:31 | PD ---
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 The patient coughed and his cannula came out. He presents to get it replaced. He had the same thing happened last month. He is breathing fine and denies any shortness of breath or fever or chest pain. Severity is mild. Patient has history of throat cancer. He has had a trach of a little over one year. He has a replacement with him. PFSH Past Medical History Hx Anticoagulant Therapy: No Arthritis: Yes Asthma: No Autoimmune Disease: Yes Blood Disorders: No Heart Rhythm Problems: No Cancer: Yes (SQUAMOUS CELL THROAT CA) Cardiovascular Problems: No High Cholesterol: Yes Chemotherapy: Yes Chest Pain: No Congestive Heart Failure: No COPD: No Cerebrovascular Accident: No Diabetes: No Diminished Hearing: No Endocrine: No Gastrointestinal Disorders: Yes (G-TUBE, RECTAL MASS) GERD: No Genitourinary: No Hepatitis: No Hiatal Hernia: Yes Hypertension: Yes Immune Disorder: Yes (HIV/AIDS) Implanted Vascular Access Dvce: Yes (LEFT VAD) Musculoskeletal: No Neurologic: No Psychiatric: No Reproductive: No Respiratory: Yes Immunizations Current: Yes Migraines: No Myocardial Infarction: No Radiation Therapy: Yes Seizures: No Sleep Apnea: No Thyroid Disease: No Ulcer: No ?: Not Past Surgical History Abdominal Surgery: Yes (G-TUBE, HERNIA REPAIR) AICD: No Body Medical Devices: LEFT CHEST PORT Cardiac Surgery: No Ear Surgery: No Endocrine Surgery: No Eye Surgery: No Genitourinary Surgery: No Gynecologic Surgery: No Insulin Pump: No Joint Replacement: No Neurologic Surgery: No Oral Surgery: No Pacemaker: No Thoracic Surgery: No Other Surgery: Yes (Trach placed ) Social History Alcohol Use: No Tobacco Use: No Substance Use: No Allergies-Medications (Allergen,Severity, Reaction): Coded Allergies: morphine (Unverified Allergy, Severe, Seizures, 11/28/17) WHEN TAKEN IN COMBINATION WITH OXYCODONE oxycodone (Unverified Allergy, Severe, Seizures, 11/28/17) WHEN TAKEN IN COMBINATION WITH MORPHINE Reported Meds & Prescriptions Reported Meds & Active Scripts Active Augmentin Es-600 Liq (Amoxicillin-Clavulanate Liq) 600-42.9 Mg/5 Ml Susp 750 Mg PO BID 12 Days Not for adults, adolescents, or children >/= 40kg. Not interchangeable with 200 mg/5 mL or 400 mg/5 mL due to clavulanic acid. Levofloxacin Liq (Levofloxacin) 25 Mg/Ml Soln 750 Mg G-TUBE Q24H 7 Days Reported Hydrocodone-Acetaminophen Liq 7.5-325 Mg/15 Ml Soln 10 Ml PO Q6H PRN Review of Systems Except as stated in HPI: all other systems reviewed are Neg General / Constitutional: No: Fever Eyes: No: Visual changes HENT: No: Headaches Cardiovascular: No: Chest Pain or Discomfort Respiratory: No: Shortness of Breath Gastrointestinal: No: Abdominal Pain Genitourinary: No: Dysuria Musculoskeletal: No: Pain Skin: No Rash Neurologic: No: Weakness Psychiatric: No: Depression Endocrine: No: Polydipsia Hematologic/Lymphatic: No: Easy Bruising Physical Exam Narrative GENERAL: Patient is in no acute distress per SKIN: Warm and dry. Normal color. Normal turgor. Tracheostomy appears normal. HEAD: Atraumatic. Normocephalic. EYES: Pupils equal and round. No scleral icterus. No injection or drainage. ENT: No nasal bleeding or discharge. Mucous membranes pink and moist. NECK: Trachea midline. Supple and nontender per CARDIOVASCULAR: Regular rate and rhythm. RESPIRATORY: No accessory muscle use. Clear to auscultation. Breath sounds equal bilaterally. MUSCULOSKELETAL: Extremities without clubbing, cyanosis, or edema. No obvious deformities. NEUROLOGICAL: Awake and alert. No obvious cranial nerve deficits. Motor grossly within normal limits. Five out of 5 muscle strength in the arms and legs. Normal speech. PSYCHIATRIC: Appropriate mood and affect; insight and judgment normal. Data Data Last Documented VS Vital Signs Date Time Temp Pulse Resp B/P (MAP) Pulse Ox O2 Delivery O2 Flow Rate FiO2 04/14/18 15:59 98.4 77 18 118/70 (86) 99 MDM Medical Decision Making Medical Screen Exam Complete: Yes Emergency Medical Condition: Yes Medical Record Reviewed: Yes Differential Diagnosis History of throat cancer. Tracheostomy. Need for tracheostomy care. Narrative Course Patient is medically stable at time of exam Respiratory therapist was called for tracheostomy care Patient to follow-up as needed. Diagnosis Primary Impression: Tracheostomy care Additional Impression: History of throat cancer Patient Instructions: General Instructions Disposition: DISCHARGE HOME Condition: Doug Tolentino Apr 14, 2018 16:31
[2018-04-14 17:05] VITALS: O2SAT 96
== END 2018-04-14 17:15 | disposition home or self-care (01) ==
LOC: NEPD 15:42
DX: Z43.0 Encounter for attention to tracheostomy (principal); I10 Essential (primary) hypertension; E78.00 Pure hypercholesterolemia, unspecified; Z85.89 Personal history of malignant neoplasm of other organs and systems; Z87.39 Personal history of other diseases of the musculoskeletal system and connective tissue; Z87.19 Personal history of other diseases of the digestive system; Z21 Asymptomatic human immunodeficiency virus [HIV] infection status
CPT/HCPCS: 99284